=== PATIENT | female | born 1945 | race Caucasian/White ===

== ENCOUNTER → 2019-10-02 13:10 | Outpatient (BNVA) | payer SELFPAY | PROVIDERS: Family Provider Family Medicine; PCP Family Medicine; Visit Provider Nurse Practitioner Family | DX: R50.9 Fever, unspecified (principal); J40 Bronchitis, not specified as acute or chronic; I10 Essential (primary) hypertension | CPT/HCPCS: 85025; 87400 ==

== ENCOUNTER → 2020-10-19 12:53 | Outpatient (BNVA) | payer MEDICARE, SELFPAY | PROVIDERS: Family Provider Family Medicine; PCP Family Medicine; Visit Provider Family Medicine | DX: I10 Essential (primary) hypertension (principal); L85.3 Xerosis cutis; F32.9 Major depressive disorder, single episode, unspecified | CPT/HCPCS: 80053; 84443; 85025 ==

== ENCOUNTER 2022-12-21 10:05 | Outpatient (CLI) | payer MEDICARE, MEDICAID, SELFPAY ==
--- NOTE | 2022-12-21 10:15 | MR_ITS ---
WS: [id number] MRI RIGHT SHOULDER HISTORY: M25.511 - Pain in right shoulder COMPARISON: None available. TECHNIQUE: Multiplanar sequences of the shoulder joint are submitted. Significant motion artifact on all sequences. Study is nearly nondiagnostic. Significant artifact through the humeral head from prior shoulder repair. [place] placement are likely . No corresponding radiographs for comparison. Moderate AC joint arthritis. Distal clavicular osteophyte encroaching upon the supraspinatus tendon a t the level of the glenoid. Subacromial impingement. High riding humeral head. No os acromion. Biceps tendon is not identified in the bicipital groove. Moderate atrophy involving the rotator cuff muscles. Most significant atrophy with fatty replacement involving the supraspinatus and the infraspinatus muscles. The motion artifact causing significant li mitation of the rotator cuff tendons. There must be a complete tear of the supraspinatus tendon with retraction to the glenoid level. The humeral head is high riding. Additional full-thickness tear of t he infraspinatus is likely. There is fluid along the tendon sheath. Subscapularis tendon may be intac t but there is increased signal from tendinopathy. Osteophyte encroachment from the coracoid also not ed upon the subscapularis tendon. Osteophytic ridging around the humeral head. Loss of cartilage invo lving the glenoid and humeral head. No significant joint effusion. MR/MR shoulder RT wo con* [id number] IMPRESSION: 1. Quality of this examination is compromised by motion. 2. High riding humeral head. Humeral head abuts the undersurface of the acromi on. 3. Complete tears with retraction of the infraspinatus and supraspinatus tendo ns with muscle atrophy. 4. Subscapularis tendon limited evaluation secondary to motion. There is at le ast tendinopathy but no full-thickness tear is identified. 5. Moderate AC joint arthritis. 6. Biceps tendon not identified in the bicipital groove. Torn or subluxed/disl ocated. 7. Moderate degenerative changes at the glenohumeral joint. 8. Prior evidence for rotator cuff repair.
== END 2022-12-21 10:06 | disposition home or self-care (01) ==
PROVIDERS: PCP Family Medicine; Visit Provider Nurse Practitioner Family
DX: M19.011 Primary osteoarthritis, right shoulder (principal); M25.711 Osteophyte, right shoulder; M25.811 Other specified joint disorders, right shoulder; M62.511 Muscle wasting and atrophy, not elsewhere classified, right shoulder
CPT/HCPCS: 73221

== ENCOUNTER → 2023-01-02 11:21 | Outpatient (BNVA) | payer MEDICARE, MEDICAID, SELFPAY | PROVIDERS: PCP Nurse Practitioner Family; Referring Provider Nurse Practitioner Family; Visit Provider Student in an Organized Health Care Education/Training Program | DX: M25.511 Pain in right shoulder (principal) | CPT/HCPCS: 20610; 73030; 99204 ==

== ENCOUNTER 2023-01-11 06:00 | Outpatient (RCR) | payer MEDICARE, MEDICAID, SELFPAY | END 2023-01-13 23:59 | disposition home or self-care (01) | LOC: TPT 06:00 | PROVIDERS: Visit Provider Student in an Organized Health Care Education/Training Program | DX: S46.011D Strain of muscle(s) and tendon(s) of the rotator cuff of right shoulder, subsequent encounter (principal); X58.XXXD Exposure to other specified factors, subsequent encounter | CPT/HCPCS: 97163 ==

== ENCOUNTER 2023-01-14 06:00 | Outpatient (RCR) | payer MEDICARE, MEDICAID, SELFPAY | END 2023-02-13 23:59 | disposition home or self-care (01) | LOC: TPT 06:00 | PROVIDERS: Visit Provider Student in an Organized Health Care Education/Training Program | DX: S46.011D Strain of muscle(s) and tendon(s) of the rotator cuff of right shoulder, subsequent encounter (principal); X58.XXXD Exposure to other specified factors, subsequent encounter | CPT/HCPCS: 97110 ==

== ENCOUNTER → 2023-10-20 08:55 | Outpatient (BNVA) | payer MEDICARE, MEDICAID, SELFPAY | PROVIDERS: PCP Nurse Practitioner Family; Visit Provider Podiatrist Foot & Ankle Surgery | DX: B35.1 Tinea unguium (principal); Q82.8 Other specified congenital malformations of skin | CPT/HCPCS: 17110; 99203 ==

== ENCOUNTER → 2024-04-30 13:25 | Outpatient (BNVA) | payer MEDICARE, MEDICAID, SELFPAY | PROVIDERS: PCP Nurse Practitioner Family; Visit Provider Podiatrist Foot & Ankle Surgery | DX: B35.1 Tinea unguium (principal); Q82.8 Other specified congenital malformations of skin; B07.0 Plantar wart | CPT/HCPCS: 17110 ==

== ENCOUNTER 2024-07-31 12:52 | Inpatient (IN) | payer OTHER, MEDICAID, SELFPAY ==
[2024-07-31] VITALS (20 sets, daily range): BP systolic 134–201; BP diastolic 72–141; PULSE 59–96; RESP 16–29; TEMP 36.9; O2SAT 80–96; BMI 34.0; BMI 33.6
--- NOTE | 2024-07-31 13:12 | XR_ITS ---
WS: [id number] XR chest 1V portable [id number] REASON FOR EXAM: chest pain, panic FINDINGS: Moderate tortuosity of the thoracic aorta. Mild cardiac enlargement. There is central pulmonary venous congestion. There is peribronchial cuffing with reticular interstitial opacities in the lower lung nick. There is blunting of the costophrenic angles indicative of pleural effusion. Mild dextroscoliosis and degenerative spondylosis of the thoracic spine. XR/XR chest 1V portable [id number] IMPRESSION: Findings most compatible with congestive heart failure.
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
[2024-07-31 13:25] LABS: ABG PCO2 43.8 mmHg (35-45); ABG PH Result 7.37 (7.35-7.45); Arterial Blood Gas Hematocrit 39.3 % (37-47); Blood Gas Allen Test Pos; Blood Gas Operator Identificat WALCI; Blood Gas Sample Site Radial, left; Blood Gas Sample Type Arterial; HCO3 ABG 25.5 mmol/L (22-26); HGB O2 Sat 85.3 % (95-100); Ionized Calcium Level - ABG 1.4 mmol/L (1.1-1.4); Methemoglobin 1.1 % (0.4-1.5); Oxygen Device NC; Oxygen Saturation ABG 88.9; PO2 ABG 59.5 mmHg (80.0-100.0); Potassium Level - ABG 3.8 mmol/L (3.5-5.0); Total Hemoglobin 12.8 g/dL (12-16)
[2024-07-31] MEDS: LORazepam 1 mg Tablet PO ×2 (13:31→15:35)
[2024-07-31 13:33] LABS: Basophils % 0.2 %; Hematocrit 42.5 % (36-47); Lymphocytes # 1.1 10^3/uL (0.8-4.8); Mean Corpuscular HGB Conc 31.3 g/dL (30-55); Mean Corpuscular Hemoglobin 28.1 pg (27-33); Mean Corpuscular Volume 89.9 fl (85-98); Mean Platelet Volume 9.8 fL (7.4-10.4); Monocytes # 0.3 10^3/uL (0.2-0.9); Monocytes % 2.7 %; Neutrophils # 7.96 10^3/uL (1.8-7.7); Neutrophils % 84.9 %; Nucleated Red Blood Cells % 0 %; Platelet Count 442 10^3/cmm (157-399); Red Blood Count 4.73 10^6/uL (3.85-5.65); Red Cell Distribution Width 14.2 % (12.1-15.1); White Blood Count 9.38 10^3/uL (3.29-11.43)
[2024-07-31 13:46] LABS: D Dimer 0.92 ug/mLFEU (0-0.59)
[2024-07-31 13:50] LABS: Troponin(5th) Baseline 15 ng/L (0-10)
--- NOTE | 2024-07-31 13:50 | CTR_ITS ---
PROCEDURE INFORMATION: Exam: CTA Chest With Contrast Exam date and time: 07/31/2024 4:13 PM Age: 79 years old Clinical indication: Shortness of breath; Additional info: Elevated d dimer, SOB, hypoxic, panic TECHNIQUE: Imaging protocol: Computed tomographic angiography of the chest with contrast. Exam focused on the arteries. 3D rendering (Not supervised by radiologist): MIP and/or 3D reconstructed images were created by the technologist. Radiation optimization: All CT scans at this facility use at least one of these dose optimization techniques: automated exposure control; mA and/or kV adjustment per patient size (includes targeted exams where dose is matched to clinical indication); or iterative reconstruction. Contrast material: OMNI 350; Contrast volume: 100 ml; Contrast route: INTRAVENOUS (IV); COMPARISON: CR XR chest 1V portable [id number] 07/31/2024 1:26 PM RADIATION DOSE METRICS: Total DLP (mGy-cm): 403.1 FINDINGS: Pulmonary arteries: The main pulmonary artery is dilated, measuring 3.9 cm caliber. No filling defect of the level of the proximal subsegmental pulmonary arteries. Aorta: Mild atherosclerotic aortic calcifications. No aortic aneurysm. Tortuous thoracic aorta. Veins: Reflux of contrast into the IVC and hepatic veins. Lungs: Expiratory phase imaging somewhat limits assessment. Diffuse ill-defined ground-glass opacities with areas of mosaic attenuation. Patchy consolidative opacities in the lung bases bilaterally. Benign calcified granulomas in the left upper lobe. Pleural spaces: Moderate bilateral pleural effusions. Heart: Moderate cardiomegaly. No pericardial effusion. Mitral annular calcifications. Coronary arteries: Scattered coronary artery calcifications. Lymph nodes: Multiple enlarged mediastinal lymph nodes. For example, there is a 1.5 cm right lower paratracheal node and a 1.4 cm right upper paratracheal node. Calcified lymph nodes from prior granulomatous disease. Diaphragm: Small hiatal hernia. Spleen: Calcified splenic granulomas. Kidneys: There appears to be excreted contrast in the renal collecting systems, possibly from recently administered IV contrast. Correlate with clinical findings. Bones/joints: Mildly exaggerated thoracic kyphosis multilevel degenerative changes. Diffuse osseous demineralization. No acute or aggressive osseous lesion. Soft tissues: Unremarkable. CT/CT angio chest PE protcl [id number] IMPRESSION: 1. No evidence of pulmonary embolism. 2. Moderate cardiomegaly. 3. Diffuse ill-defined ground-glass opacities likely represent moderate pulmonary edema. Areas of mosaic attenuation could also represent air trapping from chronic small airways disease. 4. Moderate bilateral pleural effusions with adjacent relaxation atelectasis. Superimposed infection not entirely excluded. 5. Dilated main pulmonary artery can be seen with pulmonary hypertension. 6. Reflux of contrast into the IVC and hepatic veins is compatible with tricuspid regurgitation and/or right heart failure.
[2024-07-31 13:53] LABS: Alanine Aminotransferase 33 U/L (0-33); Albumin Level 4.2 g/dL (3.5-5.2); Chloride 101 mmol/L (98-107); Potassium 4.5 mmol/L (3.5-5.1); Sodium 139 mmol/L (136-145)
[2024-07-31 14:00] LABS: Alkaline Phosphatase 126 U/L (35-105); Anion Gap 17.2 (5-19); Aspartate Amino Transferase 23 U/L (0-32); Blood Urea Nitrogen 17 mg/dL (8-23); Calcium 10.7 mg/dL (8.5-10.5); Carbon Dioxide 24 mmol/L (22-29); Globulin 3.2 g/dL (1.3-4.6); Glucose 147 mg/dL (65-115); Osmolality Calculated 290 mOsm/kg (285-295); Total Bilirubin 0.4 mg/dL (0.15-1.2); Total Protein 7.3 g/dL (6.6-8.7)
[2024-07-31 14:19] LABS: Covid PCR NEGATIVE (Negative); Influenza A NEGATIVE (Negative); Influenza B NEGATIVE (Negative); Respiratory Syncytial Virus Ce NEGATIVE (Negative)
[2024-07-31 14:28] LABS: NT Pro B Type Natriuretic Pept 5697 pg/mL (0-450)
[2024-07-31] MEDS: iohexol 350 mg/mL 500 mL Btl (per mL) IV (14:30)
--- NOTE | 2024-07-31 15:19 | ECG_ITS ---
[facility] Test Date: 2024-07-31 Pat Name: Concepcion Esquivel Department: Room: Gender: Female Exhibition Carver: : 1945 Requested By: Jasmeet Bueno Order Number: [id number] Durga MD: SHIRA KATHLEEN Measurements Intervals [place] Rate: 70 P: 34 WI: 172 QRS: 17 QRSD: 142 T: 67 QT: 440 QTc: 475 Interpretive Statements SINUS RHYTHM WITH MARKED SINUS ARRHYTHMIA LEFT BUNDLE BRANCH BLOCK [120+ ms QRS DURATION, 80+ ms Q/S IN V1/V2, 85+ ms R IN I/aVL/V5/V6] No previous ECG available for comparison Electronically Signed On 08-05-2024 23:22:41 DIRECTOR REHABILITATION PROGRAM by SHIRA KATHLEEN [email or web address]
[2024-07-31 15:24] LABS: Troponin 5 2HR 17.22 ng/L (0-10); Troponin 5 2HR Delta 2.22 ABS# (0-10)
[2024-07-31 15:39] LABS: Bilirubin Urine Negative (Negative); Blood Urine Negative (Negative); Glucose Urine UA Negative (Normal); Ketones Urine Negative (Negative); Leukocyte Esterase Urine Negative (Negative); Nitrate Urine Negative (Negative); Protein Urine 2+ (Negative); Specific Gravity, Urine 1.029 (1.005-1.030); Urine Appearance Clear (CLEAR); Urine Color Yellow (Yellow); pH Urine 5.5 (5-7)
[2024-07-31 15:43] LABS: Add Urine Microscopic? YES; Bacteria Urine None Seen /hpf; Hyaline Casts Urine 2.05 /lpf; RBC Urine 0-2 /hpf (0-2); WBC Urine 0-5 /hpf (0-5)
[2024-07-31] MEDS: FUROsemide 10 mg/mL SDV 10mL 60 MG IVP (17:12)
--- NOTE | 2024-07-31 17:53 | P.HP_ITS ---
Providers/Chief Complaint 2 Primary Care Provider: KATEY Bravo Chief Complaint: Panic Attack History of Present Illness Concepcion Esquivel is a 79 year old female with past medical history of hypertension, anxiety noncompliance to medical care or medications presented to the hospital for complaint of being sick for about a week. She states for about a week since Monday she has been very sick and feeling very cold. She has been having on and off chest pressure in the middle of her chest associated with shortness of breath nausea loss of appetite and diaphoresis. She says it is difficult to sleep and she has to prop up to breathe easier. Endorses orthopnea dyspnea on exertion. Denies having an UT in the past. She says she would like to be compliant to her blood pressure medications but just does not take them because she forgets. She says her shoes have been feeling tighter and has had lower extremity edema lately. She does not follow with a doctor however went to see her primary yesterday upon insistence of her children. She was offered an echocardiogram as she was thought to be in heart failure however patient declined at this time. Today her kids insisted she go back to the hospital for evaluation. At the time of my evaluation patient denies chest pressure however states it was there a little while ago as it comes and goes. Sister is at bedside. She is on 5 L nasal cannula saturating 93%. Also hypertensive with blood pressure 180/100 range. She does not appear to be anxious at this time. Says she has loss of appetite. Also endorses shortness of breath at this time. Denies constipation diarrhea abdominal pain. EKG did show left bundle branch block, first troponin 15, second troponin pending at this time. Medications/Allergies Home Medications Medication Instructions Recorded Confirmed Last Taken Type paroxetine HCl 10 mg tablet (Paxil) 10 mg PO DAILY #90 tabs 07/30/24 07/31/24 Unknown Rx amitriptyline 10 mg tablet 10 mg PO .qhs #30 tabs 07/31/24 07/31/24 Unknown Rx aspirin 325 mg tablet (Bryn 650 mg PO BID PRN Heart HEALTH 07/31/24 07/31/24 07/31/24 History Aspirin) hydroxyzine HCl 50 mg tablet 50 mg PO BID PRN anxiety #20 tabs 07/31/24 07/31/24 Unknown Rx ibuprofen 200 mg tablet (Advil) 600 mg PO Q6H PRN Pain 07/31/24 07/31/24 Unknown History mecobalamin (vitamin B12) 1,000 1,000 mcg PO DAILY 07/31/24 07/31/24 07/29/24 History mcg chewable tablet (B12 Active) multivitamin with [id number] 1 tab PO DAILY 07/31/24 07/31/24 07/29/24 History 400 mcg-120 mg tablet (One Daily Women 50 Plus) trazodone 50 mg tablet 50 mg PO BEDTIME PRN Sleep 07/31/24 07/31/24 07/30/24 History Allergies Allergy/AdvReac Type Severity Reaction Status Date / Time No Known Allergies Allergy Verified 04/30/24 14:16 PFSH Acute 2 PFSH: Medical History Glaucoma of both eyes Hypertension Surgical History Hx of carpal tunnel repair Hx of rotator cuff surgery Social History Smoking and tobacco/nicotine status: current every day tobacco/nicotine user cigarettes Packs smoked per day: 1 Years cigarettes smoked: 6 Second hand smoke exposure: No Alcohol intake: current Alcohol intake frequency: few times a week Alcohol type: wine Lives independently: Yes Household members: none Marital status: / Current occupational status: employed Current occupation: [employer] Current gender identity: Female Special karena needs: No Agree to transfusion: Yes Vitals/I&O/Wt Last Vital Signs Temp 98.5 F 07/31/24 12:54 Pulse 70 07/31/24 17:10 Resp 24 H 07/31/24 17:10 BP 181/100 07/31/24 17:10 Pulse Ox 94 07/31/24 17:10 O2 Del Method Nasal Cannula 07/31/24 17:10 O2 Flow Rate 5 07/31/24 17:10 Weight last 48 hrs Weight 84.368 kg Physical Exam 2 Narrative: General: Alert oriented x3, patient seen sitting up in bed on 5 L nasal cannula saturating 93%, sister at bedside. No acute respiratory distress however mild conversational dyspnea present at times. HEENT: Normocephalic, atraumatic, EOMI, Cardio: Regular rate rhythm, normal S1-S2, systolic murmur present Respiratory: Crackles bilaterally at bases GI: Abdomen soft, nontender, nondistended, bowel sounds + Behavior: Appropriate and cooperative Extremities: 1+ pitting edema bilaterally lower extremity up to the knees. Data 07/31/24 13:25 07/31/24 13:25 A&P Assessment and plan (1) Hypertension: Qualifiers: Hypertension type: essential hypertension Qualified Code(s): I10 - Essential (primary) hypertension (2) CHF (congestive heart failure): Qualifiers: Heart failure chronicity: acute Heart failure type: unspecified Qualified Code(s): I50.9 - Heart failure, unspecified (3) Supplemental oxygen dependent: (4) New onset of congestive heart failure: (5) Pulmonary edema: (6) Smoker: (7) Left bundle branch block: (8) Goals of care, counseling/discussion: (9) Noncompliance: (10) Chest pressure: (11) Systolic murmur: Plan #New onset congestive heart failure most likely systolic #Pulmonary edema, new onset #New left bundle branch block or old, do not have an old EKG to compare to #Hypertensive urgency #Anxiety #Noncompliance to medical treatment and medications #Smoker ? Will provide 7 g nicotine patches per patient's request at this time ? Lasix 60 IV given in ER. Will place on Lasix 40 IV twice daily ? First troponin 15, second and subsequent 6-hour troponin pending at this time ? EKG showed left bundle branch block ? Echo ordered ? Patient having chest pressure. Will place on nitro drip. ? Discussed with metal pickling equipment operator over the phone. Consult Dr. Reddy ? N.p.o. at midnight in case of angiogram being planned for the morning ? Patient will need diuresis and further workup for new onset congestive heart failure ? Will order Xanax 0.25 twice daily as needed for anxiety ? Check hemoglobin A1c, lipid profile, TSH ? Wean off oxygen as able ? Place Kong catheter for accurate output ? Due to active heart failure I will hold off on adding a beta-davion at this time. ? Placed on aspirin and Plavix ? In case delta troponin is positive at 6 hours patient will need to be anticoagulated at that time. Full code DVT prophylaxis: Heparin SQ twice daily Patient would like to appoint her sister and 2 children to be DPOA. tip out worker to see her in AM. Her has . Attestations 2 Medical Necessity Statement*: Greater than 2 midnight stay for management of new onset congestive heart failure new onset pulmonary edema left bundle branch block Diagnoses Essential hypertension I10 Hypertension type: essential hypertension CHF (congestive heart failure) I50.9 Heart failure chronicity: acute Heart failure type: unspecified Supplemental oxygen dependent Z99.81 New onset of congestive heart failure I50.9 Pulmonary edema J81.1 Smoker F17.200 Left bundle branch block I44.7 Goals of care, counseling/discussion Z71.89 Noncompliance Z91.199 Chest pressure R07.89 Systolic murmur R01.1
--- NOTE | 2024-07-31 18:00 | USCV_ITS ---
Concepcion Esquivel Age: 79 Gender: F : 1945 Exam Date: 07/31/2024 19:31 Ordering Phys: Payal Smith MD Technologist: PARAM Exam Location: [facility] [place] Indication: new onset heart failure BP: 181 / 100 HR: 77 Rhythm: mostly sinus rhythm with strings of atrial fibrillation Technical Quality: Adequate MEASUREMENTS (Male / Female) Normal Values 2D ECHO LV Diastolic Diameter PLAX 4.4 cm 4.2 - 5.9 / 3.9 - 5.3 cm IVS Diastolic Thickness 1.9 cm 0.6 - 1.0 / 0.6 - 0.9 cm IVS Systolic Thickness 2.3 cm LVPW Diastolic Thickness 1.7 cm 0.6 - 1.0 / 0.6 - 0.9 cm LVPW Systolic Thickness 2.1 cm LVOT Diameter 2.0 cm LV Ejection Fraction 2D Teich 44.4 % LV Ejection Fraction MOD 4C 60.4 % LV Ejection Fraction MOD 2C 37.0 % LV Ejection Fraction 2C AL 42.2 % LA Diameter 3.2 cm LA Sys Volume AL 142.9 cm cubed LA Sys Volume Index AL 72.9 cm cubed/m squared Aorta at Sinotubular Diameter 2.4 cm IVC Diameter 0.9 cm M-MODE LA Ao Ratio MM 1.6 AV Cusp Separation MM 1.4 cm DOPPLER AV Peak Velocity 209.0 cm/s LVOT Peak Velocity 74.0 cm/s AV Area Cont Eq vti 1.5 cm squared AV Area Cont Eq pk 1.1 cm squared MV Peak Velocity 148.0 cm/s MV Area PHT 4.3 cm squared Mitral E to A Ratio 0.9 TV Peak E Velocity 52.0 cm/s PV Peak Velocity 167.0 cm/s FINDINGS Left Ventricle Moderately increased left ventricular cavity size. Moderately decreased left ventricular systolic function. Left ventricular ejection fraction is estimated at 44 %. Global left ventricular hypokinesis. Grade I/IV diastolic dysfunction (abnormal relaxation filling pattern), normal to mildly elevated filling pressures. Right Ventricle The right ventricle is normal in size and function. Right Atrium The right atrium is normal in size. Left Atrium Severely increased left atrial size. Mitral Valve Moderately thickened mitral valve. No mitral valve stenosis. Moderate mitral valve regurgitation. Aortic Valve Severe aortic valve calcification. Moderate aortic valve stenosis, mean gradient 8.3 mmHg, SAMI 1.5 cm squared. Mild aortic valve regurgitation. Tricuspid Valve Structurally normal tricuspid valve without significant stenosis or regurgitation. Pulmonary artery systolic pressure is normal. Pulmonic Valve Structurally normal pulmonic valve without significant stenosis. There is no pulmonic regurgitation. Pericardium Normal pericardium without effusion. Aorta Normal ascending aorta dimension. IVC The inferior vena cava appears normal. CONCLUSIONS Moderately increased left ventricular cavity size. Moderately decreased left ventricular systolic function. Left ventricular ejection fraction is estimated at 44 %. Global left ventricular hypokinesis. Grade I/IV diastolic dysfunction (abnormal relaxation filling pattern), normal to mildly elevated filling pressures. Severely increased left atrial size. Severe aortic valve calcification. Moderate aortic valve stenosis, mean gradient 8.3 mmHg, SAMI 1.5 cm squared. Mild aortic valve regurgitation. Moderately thickened mitral valve. No mitral valve stenosis. Moderate mitral valve regurgitation. There is no pericardial effusion. Right atrial pressure is around 5 mm of mercury. Jelani Reddy MD (Electronically Signed) Final Date: 01 August 2024 21:47 S
[2024-07-31 18:47] LABS: Procalcitonin 0.04 ng/mL (0-0.5); Thyroid Stimulating Hormone 1.13 uIU/mL (0.27-4.20)
[2024-07-31 18:57] LABS: Chol HDL Ratio 3.73 mg/dL (0.0-4.40); Cholesterol 205 mg/dL (0-200); HDL Cholesterol 55 mg/dL (60-100); LDL Cholesterol Calculated 133 mg/dL (50-129); LDL HDL Ratio 2.42 RATIO (0.00-3.22); Triglycerides 86 mg/dL (0-150)
--- NOTE | 2024-07-31 19:31 | PC.NURSE ---
ATTEMPTED TO CALL REPORT AT 1932, NURSE UNAVAILABLE.
[2024-07-31] MEDS: pantoprazole DR 40 mg Tablet PO (19:58)
[2024-07-31] MEDS: cefTRIAXone 1,000 mg SDV 1000 MG IVP (19:58)
[2024-07-31] MEDS: atorvastatin 40 mg Tablet 80 MG PO (20:14)
[2024-07-31] MEDS: heparin 5,000 unit/mL INJ 1 mL 5000 UNIT SUBCUT (20:14)
[2024-07-31 20:43] LABS: Estmated Average Glucose 111; Hemoglobin A1C 5.5 % (4.0-6.0)
--- NOTE | 2024-07-31 20:43 | PC.NURSE ---
pt was given abx before cultures were drawn d/t lab stating they had drawn cultures when nurse was in the room.
--- NOTE | 2024-07-31 21:41 | PM.CONSULT ---
Providers/Reason For Consult Consulting Physician/Specialty*: Jelani Reddy MD Reason for Consult*: New onset of heart failure Left bundle branch block questionable status since we do not have any prior EKG to compare Hypoxia Requesting Physician: Dr. Smith Attending Physician: Payal Smith MD Primary Care Provider: KATEY Bravo History of Present Illness History of Present Illness Concepcion Esquivel is a 79 year old female past medical history significant for [id number] of tobacco abuse, hypertension who denies any prior history of heart problem presented with worsening of shortness of breath PND orthopnea. According to the patient it is going on for the last few days she also reports chest pressure and occasional chest pain. Currently she is chest pain-free and feeling better after IV Lasix. According to the patient today he felt like suffocated and were not able to breathe therefore decided to come to the ER. Twelve-lead EKG was suggestive of sinus rhythm with left bundle branch block no prior EKG to compare initial cardiac markers were within normal limit we have been asked to assist in her care. Patient was on 5 L of oxygen. Review of Systems General: Reports: 10 or more systems reviewed and unremarkable except in HPI and below Const: Denies: fever(s), chills or fatigue Eyes: Denies: change in vision ENMT: Denies: throat pain, ear or mastoid pain or nasal discharge Card: Reports: chest pain; Denies: palpitations, swelling of feet/ankles or lightheadedness Resp: Reports: dyspnea; Denies: productive cough or wheezing GI: Denies: abdominal pain, nausea, vomiting, diarrhea or constipation : Denies: flank pain, difficulty voiding, dysuria or urinary frequency Musc: Denies: neck pain, back pain, joint pain or joint warmth Skin/Breast: Denies: rash Neuro: Denies: headache(s), numbness in extremities or weakness in extremities Psych: Reports: anxiety; Denies: depression, visual hallucinations, auditory hallucinations, tactile hallucinations, suicidal ideation or homicidal ideation Medications/Allergies Home Medications Medication Instructions Recorded Confirmed Last Taken Type paroxetine HCl 10 mg tablet (Paxil) 10 mg PO DAILY #90 tabs 07/30/24 07/31/24 Unknown Rx amitriptyline 10 mg tablet 10 mg PO .qhs #30 tabs 07/31/24 07/31/24 Unknown Rx aspirin 325 mg tablet (Bryn 650 mg PO BID PRN Heart HEALTH 07/31/24 07/31/24 07/31/24 History Aspirin) hydroxyzine HCl 50 mg tablet 50 mg PO BID PRN anxiety #20 tabs 07/31/24 07/31/24 Unknown Rx ibuprofen 200 mg tablet (Advil) 600 mg PO Q6H PRN Pain 07/31/24 07/31/24 Unknown History mecobalamin (vitamin B12) 1,000 1,000 mcg PO DAILY 07/31/24 07/31/24 07/29/24 History mcg chewable tablet (B12 Active) multivitamin with [id number] 1 tab PO DAILY 07/31/24 07/31/24 07/29/24 History 400 mcg-120 mg tablet (One Daily Women 50 Plus) trazodone 50 mg tablet 50 mg PO BEDTIME PRN Sleep 07/31/24 07/31/24 07/30/24 History Allergies Allergy/AdvReac Type Severity Reaction Status Date / Time No Known Allergies Allergy Verified 04/30/24 14:16 Current Medications Generic Name Dose Route Start Last Admin Trade Name Freq PRN Reason Stop Dose Admin Atorvastatin Calcium 80 mg 07/31/24 21:00 07/31/24 20:14 Atorvastatin 40 Mg Tablet PO 80 mg BEDTIME DENISE Administration Ceftriaxone Sodium 1,000 mg 07/31/24 19:00 07/31/24 19:58 Ceftriaxone 1,000 Mg Sdv IVP 1,000 mg Q24H DENISE Administration Protocol Heparin Sodium (Porcine) 5,000 unit 07/31/24 18:00 07/31/24 20:14 Heparin 5,000 Unit/Ml Inj 1 Ml SUBCUT 5,000 unit Q12H DENISE Administration Pantoprazole Sodium 40 mg 07/31/24 18:00 07/31/24 19:[address] 40 Mg Tablet PO 40 mg DAILY DENISE Administration PFSH Acute PFSH: Medical History Glaucoma of both eyes Hypertension Surgical History Hx of carpal tunnel repair Hx of rotator cuff surgery Social History Smoking and tobacco/nicotine status: current every day tobacco/nicotine user cigarettes Packs smoked per day: 1 Years cigarettes smoked: 6 Second hand smoke exposure: No Alcohol intake: current Alcohol intake frequency: few times a week Alcohol type: wine Lives independently: Yes Household members: none Marital status: / Current occupational status: employed Current occupation: [employer] Current gender identity: Female Special karena needs: No Agree to transfusion: Yes Vitals/I&O/Wt Last Vital Signs Temp 98.5 F 07/31/24 12:54 Pulse 96 07/31/24 21:05 Resp 26 H 07/31/24 19:30 BP 178/107 07/31/24 21:05 Pulse Ox 93 07/31/24 21:05 O2 Del Method Nasal Cannula 07/31/24 19:30 O2 Flow Rate 5 07/31/24 19:30 Weight last 48 hrs Weight 186 lb Physical Exam Const: OTHER: GENERAL: Patient is alert, awake and oriented x3. HEART: Regular S1 and S2. No gallop LUNGS: Inspiratory crackles bilaterally. Abdomen: Soft nontender mildly distended CENTRAL NERVOUS SYSTEM: Grossly nonfocal. EXTREMITIES: Lower extremities with out edema bilaterally. Urinary Catheter Management: Kong: Cath Placed During This Visit: yes Urinary Catheter Date of Insertion: 07/31/24 Data 07/31/24 13:25 07/31/24 13:25 A&P Assessment and plan (1) New onset of congestive heart failure: (2) Chest pressure: (3) Left bundle branch block: (4) Smoker: (5) Hypertension: Qualifiers: Hypertension type: essential hypertension Qualified Code(s): I10 - Essential (primary) hypertension Plan Discussed with our hospitalist colleague detail management. We agree with IV diuresis goal is 1-1.5 negative per day with electrolyte balance. IV nitroglycerin for uncontrolled hypertension will also reduce preload and improve congestion of lungs secondary to CHF Will obtain echocardiogram to assess LV function and any valvulopathy Left bundle branch block currently is off unknown significance until there is no other EKG for comparison since patient is chest pain-free and first troponin was within normal range Once euvolemic patient need ischemic workup depending upon echocardiogram result trending troponin left heart cath versus stress test will be planned. Consult Attestations Medical Necessity Statement: I am expecting her stay to cross more than 2 midnights Coding Level of Care Code Acute Code for Chg Fwd Diagnoses New onset of congestive heart failure I50.9 Chest pressure R07.89 Left bundle branch block I44.7 Smoker F17.200 Essential hypertension I10 Hypertension type: essential hypertension
[2024-07-31 21:47] LABS: Troponin 5 6HR 19.01 ng/L (0-10); Troponin 5 6HR Delta 4.01 ng/L (0-12)
[2024-07-31] MEDS: FUROsemide 10 mg/mL SDV 4mL 40 MG IVP (22:00)
[2024-07-31] MEDS: nitroglycerin drip 50 MG/250 ML PREMIX IV (22:40)
[2024-08-01] VITALS (38 sets, daily range): BP systolic 90–158; BP diastolic 53–92; PULSE 57–111; RESP 15–27; TEMP 36.2–37.7; O2SAT 87–100
[2024-08-01 03:35] LABS: Basophils % 0.3 %; Eosinophils # 0.1 10^3/uL (0.0-0.8); Hematocrit 41.4 % (36-47); Lymphocytes # 1.6 10^3/uL (0.8-4.8); Lymphocytes % 17.5 %; Mean Corpuscular HGB Conc 31.4 g/dL (30-55); Mean Corpuscular Hemoglobin 27.8 pg (27-33); Mean Corpuscular Volume 88.7 fl (85-98); Mean Platelet Volume 9.7 fL (7.4-10.4); Monocytes # 0.6 10^3/uL (0.2-0.9); Monocytes % 6.6 %; Neutrophils # 6.84 10^3/uL (1.8-7.7); Neutrophils % 74.3 %; Nucleated Red Blood Cells % 0 %; Platelet Count 428 10^3/cmm (157-399); Red Blood Count 4.67 10^6/uL (3.85-5.65); Red Cell Distribution Width 14.1 % (12.1-15.1); White Blood Count 9.21 10^3/uL (3.29-11.43)
[2024-08-01 04:01] LABS: Alanine Aminotransferase 30 U/L (0-33); Albumin Level 3.8 g/dL (3.5-5.2); Alkaline Phosphatase 114 U/L (35-105); Anion Gap 17.2 (5-19); Aspartate Amino Transferase 20 U/L (0-32); Blood Urea Nitrogen 16 mg/dL (8-23); Calcium 10.5 mg/dL (8.5-10.5); Carbon Dioxide 28 mmol/L (22-29); Chloride 98 mmol/L (98-107); Creatinine Clr Calc Pharmacy 56.1885; Glucose 90 mg/dL (65-115); Magnesium 2.2 mg/dL (1.7-2.3); Osmolality Calculated 291 mOsm/kg (285-295); Potassium 3.2 mmol/L (3.5-5.1); Sodium 140 mmol/L (136-145); Total Bilirubin 0.4 mg/dL (0.15-1.2); Total Protein 6.8 g/dL (6.6-8.7)
[2024-08-01] MEDS: heparin 5,000 unit/mL INJ 1 mL 5000 UNIT SUBCUT ×2 (06:21→17:35)
[2024-08-01] MEDS: potassium chloride ER 20 mEq Tablet 40 MEQ PO ×2 (08:57→13:17)
[2024-08-01] MEDS: PARoxetine 20 mg Tablet 10 MG PO (08:58)
[2024-08-01] MEDS: aspirin 81 mg EC Tablet PO (08:59)
[2024-08-01] MEDS: clopidogrel 75 mg Tablet PO (08:59)
[2024-08-01] MEDS: pantoprazole DR 40 mg Tablet PO (08:59)
[2024-08-01] MEDS: FUROsemide 10 mg/mL SDV 4mL 40 MG IVP ×3 (09:00→20:42)
--- NOTE | 2024-08-01 10:23 | PC.NURSE ---
0839 -- Notified Dr Smith of patients K+ level of 3.2, order given for 40meq PO K+ to be given. 914 -- Linda CERTIFIED APPLIANCE SERVICE TECHNICIAN to bedside, patient assessed and updated CERTIFIED APPLIANCE SERVICE TECHNICIAN on urine output and 40meq K given PO 929 -- Dr. Smith to bedside, sisters number given to Dr. Smith so she can call her with an update on a patient.
--- NOTE | 2024-08-01 11:10 | PM.PN ---
Subjective Subjective: seen this am nitro gtt turned off this am feeling better today orthopnea has improved as well now on 3L NC echo pending at this time denies chest pressure this Am Vitals/I&O/Wt Last Vital Signs Temp 99.5 F 08/01/24 08:00 Pulse 71 08/01/24 10:00 Resp 26 H 08/01/24 10:00 BP 149/68 08/01/24 10:00 Pulse Ox 91 08/01/24 10:00 O2 Del Method Nasal Cannula 08/01/24 10:00 O2 Flow Rate 4 08/01/24 10:00 07/31/24 08/01/24 08/01/24 22:59 06:59 14:59 Intake Total 0.25 / 0.25 495.025 / 495.275 Output Total 650 / 650 Balance 0.25 / 0.25 -154.975 / -154.725 Weight last 48 hrs Weight 82 kg Weight 83.5 kg Weight 84.368 kg Physical Exam Narrative: General: Alert oriented x3, patient seen sitting up in bed on 4 L nasal cannula saturating 93%, sister at bedside. HEENT: Normocephalic, atraumatic, EOMI, Cardio: Regular rate rhythm, normal S1-S2, systolic murmur present Respiratory: very mild crackles at bases b/l improved from admission. GI: Abdomen soft, nontender, nondistended, bowel sounds + Behavior: Appropriate and cooperative Extremities: trace edema b/l Urinary Catheter Management: Kong: Cath Placed During This Visit: yes Reason for Continuing Indwelling Catheter: Accurate Measurement of Urinary Output in Critically Ill Patients Urinary Catheter Date of Insertion: 07/31/24 Data 08/01/24 03:19 08/01/24 03:19 Micro: Microbiology 08/01/24 03:15 Blood Culture - Preliminary Blood SPECIMEN COLLECTED 08/01/24 03:19 Blood Culture - Preliminary Blood SPECIMEN COLLECTED A&P Assessment and plan (1) Hypertension: Qualifiers: Hypertension type: essential hypertension Qualified Code(s): I10 - Essential (primary) hypertension (2) CHF (congestive heart failure): Qualifiers: Heart failure chronicity: acute Heart failure type: unspecified Qualified Code(s): I50.9 - Heart failure, unspecified (3) Supplemental oxygen dependent: (4) New onset of congestive heart failure: (5) Pulmonary edema: (6) Smoker: (7) Left bundle branch block: (8) Goals of care, counseling/discussion: (9) Noncompliance: (10) Chest pressure: (11) Systolic murmur: Plan #New onset congestive heart failure most likely systolic #Pulmonary edema, new onset #New left bundle branch block or old, do not have an old EKG to compare to #Hypertensive urgency #Anxiety #Noncompliance to medical treatment and medications #Smoker ? Will provide 7 g nicotine patches per patient's request at this time ? Lasix 60 IV given in ER. Will place on Lasix 40 IV twice daily ? First troponin 15, second and subsequent 6-hour troponin pending at this time ? EKG showed left bundle branch block ? Echo ordered ? Patient having chest pressure. Will place on nitro drip. ? Discussed with partition making machine operator over the phone. Consult Dr. Reddy ? N.p.o. at midnight in case of angiogram being planned for the morning ? Patient will need diuresis and further workup for new onset congestive heart failure ? Will order Xanax 0.25 twice daily as needed for anxiety ? Check hemoglobin A1c, lipid profile, TSH ? Wean off oxygen as able ? Place Kong catheter for accurate output ? Due to active heart failure I will hold off on adding a beta-davion at this time. ? Placed on aspirin and Plavix ? In case delta troponin is positive at 6 hours patient will need to be anticoagulated at that time. Full code DVT prophylaxis: Heparin SQ twice daily Patient would like to appoint her sister and 2 children to be DPOA. clam bed worker to see her in AM. Her has . 08/01/2024 Continue on nicotine patch await echo continue lasix 40 iv BID - continue to supplement potassium - cardiology following a1c 5.1 lipid profile reviewed, pt on atorvastatin 80 tsh pending - wean off o2 as able - continue aspirin plavix continue xanax bid prn may transfer to [facility] Attestations Medical Necessity Statement*: Greater than 2 midnight stay for management of new onset congestive heart failure new onset pulmonary edema left bundle branch block Diagnoses Essential hypertension I10 Hypertension type: essential hypertension CHF (congestive heart failure) I50.9 Heart failure chronicity: acute Heart failure type: unspecified Supplemental oxygen dependent Z99.81 New onset of congestive heart failure I50.9 Pulmonary edema J81.1 Smoker F17.200 Left bundle branch block I44.7 Goals of care, counseling/discussion Z71.89 Noncompliance Z91.199 Chest pressure R07.89 Systolic murmur R01.1
[2024-08-01] MEDS: nicotine 7 mg Patch 1 PATCH TRANSDERMA (11:35)
--- NOTE | 2024-08-01 11:56 | P.PN_ITS ---
<Statement entered by Jelani Reddy MD - 08/01/24 23:08> Patient was evaluated and cared for in conjunction with an advanced practice practitioner. I personally examined the patient and reviewed the chart and all pertinent data including imaging, telemetry, and laboratory results. I discussed the patient in detail with the advanced practice practitioner. Please see their note for complete H&P testing result and agreed upon plan of care for the patient. Patient has diuresed well feeling much better near euvolemic GENERAL: Patient is alert, awake and oriented x3. HEART: Regular S1 and S2. No murmur, rub or gallop. LUNGS: Clear to auscultate bilaterally. CENTRAL NERVOUS SYSTEM: Grossly nonfocal. EXTREMITIES: Lower extremities with out edema bilaterally. New onset of heart failure with moderately depressed left ventricular ejection fraction Acute systolic decompensated heart failure with volume overload status Moderately depressed left ventricular ejection fraction new onset ejection fraction 44% Moderate mitral valve regurgitation COPD Tobacco abuse Continue IV diuresis, n.p.o. after morning breakfast for possible left heart cath tomorrow afternoon to rule out ischemic component Will add beta-davion and guideline therapy for heart failure from tomorrow after reviewing left heart catheter result. Advised quitting smoking. Subjective 2 Subjective: She is feeling much better today after some diuresis-she had 1900 mL out yesterday and 650 so far today her fluid balance is 150 mL negative. She will require more IV diuresis prior to further ischemic workup with either a stress test or a left heart cath. Pedal pulses decreased present by Doppler. Given her risk factors for CAD/PAD she likely has some mild to moderate PAD. She does not have any symptoms of claudication, resting leg pain, sensation or color changes to the feet or toes. Potassium 3.2 this morning, has been replaced. Blood pressure elevated at times overnight, should improve with diuresis. Currently 4 L nasal cannula saturating well. No symptoms of chest pain this morning. Vitals/I&O/Wt Last Vital Signs Temp 99.5 F 08/01/24 08:00 Pulse 71 08/01/24 10:00 Resp 26 H 08/01/24 10:00 BP 149/68 08/01/24 10:00 Pulse Ox 91 08/01/24 10:00 O2 Del Method Nasal Cannula 08/01/24 10:00 O2 Flow Rate 4 08/01/24 10:00 07/31/24 08/01/24 08/01/24 22:59 06:59 14:59 Intake Total 0.25 / 495.275 495.025 / 495.275 Output Total 650 / 650 Balance 0.25 / -154.725 -154.975 / -154.725 Weight last 48 hrs Weight 180 lb 12.465 oz Weight 184 lb 1.376 oz Weight 186 lb Physical Exam 2 Const: COMMON NORMALS: no acute distress and patient oriented x3 GENERAL APPEARANCE: cooperative and comfortable ORIENTATION/CONSCIOUSNESS: Yes awake, Yes oriented to person, Yes oriented to place and Yes oriented to time Chest: COMMONS NORMALS: normal inspection of the chest and normal palpation of entire chest wall CHEST: Yes Symmetrical chest wall rise Resp: COMMON NORMALS: normal respiratory effort, No retractions and No use of accessory muscles EFFORT & INSPECTION: Yes symmetric chest movement A USCULTATION: crackles (Throughout) Laterality: bilateral and posterior Cardio: COMMON NORMALS: regular rate, regular rhythm, S1 normal heart sound present, S2 normal heart sound present, No gallops present (Cardio), No clicks present (Cardio), No murmurs present (Cardio) and No rub (Cardio) RATE: r egular rate RHYTHM: regular rhythm HEART SOUNDS: S1 normal heart sound present and S2 normal heart sound present PERIPHERAL PULSES: radial pulses present, posterior tibial pulses present positive bilateral dopplerable and dorsalis pedis present positive bilateral dopplerable Extremity: COMMON NORMALS: no pedal edema Neuro: COMMON NORMALS: patient oriented x3 and moves all extremities S ENSORIUM/ORIENTATION: Yes oriented to person, Yes oriented to place and Yes oriented to time Urinary Catheter Management: Kong: Cath Placed During This Visit: yes Reason for Continuing Indwelling Catheter: Accurate Measurement of Urinary Output in Critically Ill Patients Urinary Catheter Date of Insertion: 07/31/24 Data 08/01/24 03:19 08/01/24 03:19 Micro: Microbiology 08/01/24 03:15 Blood Culture - Preliminary Blood SPECIMEN COLLECTED 08/01/24 03:19 Blood Culture - Preliminary Blood SPECIMEN COLLECTED A&P Assessment and plan (1) New onset of congestive heart failure: Continue IV diuresis, she still has crackles and appears volume overloaded. (2) Hypertension: Qualifiers: Hypertension type: essential hypertension Qualified Code(s): I10 - Essential (primary) hypertension (3) Left bundle branch block: (4) Smoker: Attestations 2 Medical Necessity Statement*: Requires diuresis for ischemic workup, new onset heart failure Coding Level of Care Code Acute Code for Chg Fwd Diagnoses New onset of congestive heart failure I50.9 Essential hypertension I10 Hypertension type: essential hypertension Left bundle branch block I44.7 Smoker F17.200
[2024-08-01 12:53] LABS: Anion Gap 14.2 (5-19); Blood Urea Nitrogen 18 mg/dL (8-23); Calcium 10.4 mg/dL (8.5-10.5); Carbon Dioxide 29 mmol/L (22-29); Chloride 100 mmol/L (98-107); Creatinine Clr Calc Pharmacy 55.6573; Glucose 152 mg/dL (65-115); Osmolality Calculated 295 mOsm/kg (285-295); Potassium 3.2 mmol/L (3.5-5.1); Sodium 140 mmol/L (136-145)
--- NOTE | 2024-08-01 13:11 | PC.NURSE ---
K+ 3.2, notified Dr. Smith, order given for K+ 40meq PO x 1 dose.
[2024-08-01] MEDS: potassium chloride ER 20 mEq Tablet PO (17:36)
[2024-08-01] MEDS: cefTRIAXone 1,000 mg SDV 1000 MG IVP (19:02)
[2024-08-01] MEDS: atorvastatin 40 mg Tablet 80 MG PO (20:41)
[2024-08-02] VITALS (29 sets, daily range): BP systolic 87–170; BP diastolic 39–102; PULSE 63–87; RESP 16–30; TEMP 36.6–37.1; O2SAT 89–100
[2024-08-02] MEDS: heparin 5,000 unit/mL INJ 1 mL 5000 UNIT SUBCUT ×2 (06:00→21:14)
[2024-08-02 07:04] LABS: Blood Urea Nitrogen 24 mg/dL (8-23); Calcium 10.4 mg/dL (8.5-10.5); Carbon Dioxide 30 mmol/L (22-29); Chloride 101 mmol/L (98-107); Creatinine Clr Calc Pharmacy 54.7719; Glucose 105 mg/dL (65-115); Osmolality Calculated 294 mOsm/kg (285-295); Sodium 140 mmol/L (136-145)
[2024-08-02] MEDS: nicotine 7 mg Patch 1 PATCH TRANSDERMA (08:20)
[2024-08-02] MEDS: clopidogrel 75 mg Tablet PO (08:22)
[2024-08-02] MEDS: aspirin 81 mg EC Tablet PO (08:22)
[2024-08-02] MEDS: FUROsemide 10 mg/mL SDV 4mL 40 MG IVP (08:22)
[2024-08-02] MEDS: pantoprazole DR 40 mg Tablet PO (08:23)
[2024-08-02] MEDS: PARoxetine 20 mg Tablet 10 MG PO (08:23)
[2024-08-02] MEDS: potassium chloride ER 20 mEq Tablet PO (08:23)
--- NOTE | 2024-08-02 09:10 | P.PN_ITS ---
Subjective 2 Subjective: Seen this morning. Plan for coronary angiogram today. Patient states she feels better. Urine output 2500 cc overnight. Vitals/I&O/Wt Last Vital Signs Temp 98.7 F 08/02/24 04:00 Pulse 78 08/02/24 07:39 Resp 16 08/02/24 07:39 BP 119/65 08/02/24 06:00 Pulse Ox 91 08/02/24 07:39 O2 Del Method Room Air 08/02/24 07:39 O2 Flow Rate 2 08/02/24 06:00 08/01/24 08/02/24 08/02/24 22:59 06:59 14:59 Intake Total 680 / 1180 Output Total 1550 / 1550 950 / 2500 Balance -870 / -370 -950 / -1320 Weight last 48 hrs Weight 79.5 kg Weight 82 kg Weight 83.5 kg Weight 84.368 kg Physical Exam 2 Narrative: General: Alert oriented x3, patient seen sitting up in bed on 2 L nasal cannula. HEENT: Normocephalic, atraumatic, EOMI, Cardio: Regular rate rhythm, normal S1-S2, systolic murmur present Respiratory: v clear to auscultation bilaterally, significant improvement from admission. GI: Abdomen soft, nontender, nondistended, bowel sounds + Behavior: Appropriate and cooperative Extremities: trace edema b/l Urinary Catheter Management: Kong: Cath Placed During This Visit: yes Reason for Continuing Indwelling Catheter: Accurate Measurement of Urinary Output in Critically Ill Patients Urinary Catheter Date of Insertion: 07/31/24 Data 08/01/24 03:19 08/02/24 06:09 Micro: Microbiology 08/01/24 03:15 Blood Culture - Preliminary Blood NEGATIVE TO DATE 08/01/24 03:19 Blood Culture - Preliminary Blood NEGATIVE TO DATE A&P Assessment and plan (1) Hypertension: Qualifiers: Hypertension type: essential hypertension Qualified Code(s): I10 - Essential (primary) hypertension (2) CHF (congestive heart failure): Qualifiers: Heart failure chronicity: acute Heart failure type: unspecified Qualified Code(s): I50.9 - Heart failure, unspecified (3) Supplemental oxygen dependent: (4) New onset of congestive heart failure: (5) Pulmonary edema: (6) Smoker: (7) Left bundle branch block: (8) Goals of care, counseling/discussion: (9) Noncompliance: (10) Chest pressure: (11) Systolic murmur: Plan #New onset congestive heart failure most likely systolic #Pulmonary edema, new onset #New left bundle branch block or old, do not have an old EKG to compare to #Hypertensive urgency #Anxiety #Noncompliance to medical treatment and medications #Smoker ? Will provide 7 g nicotine patches per patient's request at this time ? Lasix 60 IV given in ER. Will place on Lasix 40 IV twice daily ? First troponin 15, second and subsequent 6-hour troponin pending at this time ? EKG showed left bundle branch block ? Echo ordered ? Patient having chest pressure. Will place on nitro drip. ? Discussed with fruit grading supervisor over the phone. Consult Dr. Reddy ? N.p.o. at midnight in case of angiogram being planned for the morning ? Patient will need diuresis and further workup for new onset congestive heart failure ? Will order Xanax 0.25 twice daily as needed for anxiety ? Check hemoglobin A1c, lipid profile, TSH ? Wean off oxygen as able ? Place Kong catheter for accurate output ? Due to active heart failure I will hold off on adding a beta-davion at this time. ? Placed on aspirin and Plavix ? In case delta troponin is positive at 6 hours patient will need to be anticoagulated at that time. Full code DVT prophylaxis: Heparin SQ twice daily Patient would like to appoint her sister and 2 children to be DPOA. 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 Her has . 08/01/2024 Continue on nicotine patch await echo continue lasix 40 iv BID - continue to supplement potassium - cardiology following a1c 5.1 lipid profile reviewed, pt on atorvastatin 80 tsh pending - wean off o2 as able - continue aspirin plavix continue xanax bid prn may transfer to [facility] 08/02/2024 -Patient placed on Lasix 40 IV 3 times daily ? A1c 5.1. ? TSH pending ? Continue aspirin Plavix. ? Plan for coronary angiogram today. ? Echo reviewed. EF 44% with global hypokinesia grade 1 diastolic dysfunction. ? Cardiology following, appreciate recommendations. Attestations 2 Medical Necessity Statement*: Greater than 2 midnight stay for management of new onset congestive heart failure new onset pulmonary edema left bundle branch block Diagnoses Essential hypertension I10 Hypertension type: essential hypertension CHF (congestive heart failure) I50.9 Heart failure chronicity: acute Heart failure type: unspecified Supplemental oxygen dependent Z99.81 New onset of congestive heart failure I50.9 Pulmonary edema J81.1 Smoker F17.200 Left bundle branch block I44.7 Goals of care, counseling/discussion Z71.89 Noncompliance Z91.199 Chest pressure R07.89 Systolic murmur R01.1
--- NOTE | 2024-08-02 12:06 | PC.SOCIAL ---
IMM Updated Updated pt on IMM. No questions voiced. Provided pt a copy. Initialed, dated, & timed a copy & placed in chart.
--- NOTE | 2024-08-02 13:30 | XACV_ITS ---
Exam Room: 2 Ht: 157 cm Wt: 79 kg BSA: 1.90 m2 Gender: Female : 1945 Any Known Allergies: No known allergies Exam Priority: Routine Procedure(s): Procedure Description: Diagnostic procedure Procedure Description: Coronary Angiography CHAUKarleyMaureen Kruger; Diagnostic Cath Status: Urgent Diagnostic Findings * Left Main has no disease. * Circumflex has no disease. * Mid Left Anterior Descending: significant 80% stenosis, DUSTY: 3 flow. * Proximal Right Coronary Artery: total occlusion, DUSTY: 0 flow. * Distal Circumflex to AV groove continuation of Circumflex Artery collaterallization. * 1st Diagonal: severe 90% stenosis, DUSTY: 3 flow. * First Obtuse Marginal Branch Segment: significant 80% stenosis, DUSTY: 3 flow. * Coronary angiography shows right dominance. Conclusions 1. There is total occlusion coronary artery disease with two vessel disease. Recommendations * 1-Return to ICU for close monitoring and routine PCI care 2-Continue IV heparin drip as per ACS protocol 3-Hold Plavix for possible CABG 4-Statin with LDL goal of 70 mg/dl, aspirin 81 mg p.o. daily for life long 5-CT surgery consults for CABG 6-Optimal medical management for ND 7-Follow up with Dr. Reddy in four weeks and establish care with primary care physician. Diagnostic RX Recommendation: CABG Pressures Phase:Rest AO : 161 / 82 ( 111 ) @ 4:34:00 PM 131 / 98 ( 115 ) @ 4:35:00 PM 130 / 98 ( 114 ) @ 4:47:00 PM Clinical Evaluation EBL: 5mL-10mL Procedural Details Procedure Consent Obtained. Current Diagnosis : Chest Pain. Pre-Procedure Time Out. Identified patient by full name and date of as verbalized by the patient/guarantor. Does the consent match the physician's order: Yes. Accurate & Complete Informed Consent: Yes. Inpatient/Outpatient History & Physical on Chart: Yes. If H&P is completed, is and addenduem needed: No; If yes, is the addendum complete: N/A. Visualize and Verify Site with Patient/Guarantor: N/A. Relevant Radiology Images available: Yes. Pre-op teaching completed and patient verbalized understanding. The risks, benefits, and alternatives of sedation and/or procedure were discussed by physician. The patient agrees to continue. Procedure started. [facility] Clinical Fraility Score: 4: Vulnerable. Respiratory Support Technician Indications: Worsening Angina. Correct patient, site and procedure confirmed by cath team. Current diagnosis: Chest Pain. PERRLA. Strong, equal hand dual rate supervisor bilaterally. Lungs clear x 5 lobes. IV Site on Arrival: 20 gauge in the right anticubital. IV Fluids: 0.9% NaCl at KVO. 0 mL infused prior to laborer chemical processing. Oxygen started at 2liters/min via nasal canula. right groin was prepped with chloroprep then draped in the usual sterile fashion. right radial was prepped with chloroprep then draped in the usual sterile fashion. Baseline sample Acquired. HR: 71 BPM. Physician arrived. Physician scrubbed in. Immediate Pre-Procedure Time Out. Correct Patient: Yes; Correct Procedure: Yes; Correct Site: Yes; Correct Patient Position: Yes; Correct Supplies: Yes; Dried Flammable Prep: Yes; Blood Products Available: N/A;. Lidocaine 1% infiltrated to the right radial. Arterial access obtained. Wire unable to advance. Ultrasound being used to obtain access. An attempt to gain access to the right radial artery was unsuccessful. Manual pressure was held as needed to stop the bleeding. Lidocaine 1% infiltrated to the right groin. Arterial access obtained with micropuncture set. Wire unable to advanced. Wire and needle out. left groin was prepped with chloroprep then draped in the usual sterile fashion. Lidocaine 1% infiltrated to the left groin. Arterial access obtained with micropuncture set. Wire out. Glidewire inserted. Wire out. Contrast hand injected through the sheath. Glidewire inserted. A 5 [place] JL4 catheter in over wire. Multiple views taken of left coronary artery. Catheter removed over the exchange wire. A 5 [place] JR4 catheter in over wire. Multiple views taken of right coronary artery. Catheter removed over the exchange wire. A 5 [place] Angled Pig catheter in over wire. Catheter removed over the standard wire. A Left femoral angiogram was performed to determine safe placement of closure device. AngioSeal was attempted but wire was unable to advance. Sheath(s) sutured into position with 2-0 silk and sterile 4x4's and Op-site applied over the site. No oozing or signs and symptoms of hematoma noted. Arterial sheath flushed and connected to tranducer and pressure bag with heparinized saline. Post Procedure: Pulses reassessed and unchanged. PERRLA. Strong, equal hand dual rate supervisor bilaterally. No VTE prophylaxis required. Post-op diagnosis: CAD. Complications: None. Estimated blood loss: 5mL-10mL. Responsiveness - Normal response to verbal stimuli; alert and oriented, PERRLA. Airway - Unaffected, no intervention required; spontaneous ventilation. Circulation: W/N/L, pulses unchanged. Nausea/Vomiting: No. Procedure completed. Patient transferred by bed to ICU. Vital chart was stopped. A Suture was successful obtaining hemostatsis at the Left Femoral artery insertion site. Access Site Site: Left Femoral artery Sheath Size: 6 Fr Hemostasis Method: Suture Hemostasis Success: Successful Procedure Medications Start: 3:48 PM Stop: 3:48 PM Medication: Versed 1 mg and Fentanyl 25 mcg Amount: 1 Start: 3:52 PM Stop: 3:52 PM Medication: Versed Amount: 1 mg Route: I.V. Start: 3:59 PM Stop: 3:59 PM Medication: Versed 1 mg and Fentanyl 25 mcg Amount: 1 Route: I.V. Start: 3:58 PM Stop: 3:58 PM Medication: Nitrogylcerin Amount: 50 mcg Route: S.Q. Start: 4:03 PM Stop: 4:03 PM Medication: Nitrogylcerin Amount: 100 mcg Route: S.Q. Start: 4:27 PM Stop: 4:27 PM Medication: Benadryl Amount: 25 mg Route: I.V. Start: 4:37 PM Stop: 4:37 PM Medication: Versed Amount: 1 mg Route: I.V. I, the attending physician, have reviewed and verified all procedure medications. Yes, all medications given per verbal order History/Risk Factors Hypertension: Yes Dyslipidemia: No Peripheral Arterial Disease (PAD): No Myocardial Infarction (ND): No Obesity: No Renal Disease: No Tobacco Use: Current/Recent(w/in 1 year) Prior Interventions PCI: No CABG: No Valve Surgery: No Report Signatures Finalized by Jelani Reddy MD on 08/19/2024 12:03 AM
--- NOTE | 2024-08-02 14:52 | PC.NURSE ---
1415 -- Notified Dr. Reddy that Dr. Smith placed the lasix on hold due to concern of over diuresis due to low MAP and elevated BUN. Dr. Reddy stated that is fine.
--- NOTE | 2024-08-02 15:07 | P.PN_ITS ---
<Statement entered by Jelani Reddy MD - 08/17/24 17:55> Patient was evaluated and cared for in conjunction with an advanced practice practitioner. I personally examined the patient and reviewed the chart and all pertinent data including imaging, telemetry, and laboratory results. I discussed the patient in detail with the advanced practice practitioner. Please see their note for complete H&P testing result and agreed upon plan of care for the patient. Subjective 2 Subjective: Patient seen this morning. She has done well overnight, diuresing well, 1300 mL negative currently. Blood pressure well-controlled. She is to be n.p.o. after breakfast for possible left heart cath later today. Plan to add GDMT postprocedure. Vitals/I&O/Wt Last Vital Signs Temp 98.6 F 08/02/24 12:00 Pulse 68 08/02/24 14:00 Resp 25 H 08/02/24 14:00 BP 96/80 08/02/24 14:00 Pulse Ox 96 08/02/24 14:00 O2 Del Method Nasal Cannula 08/02/24 14:00 O2 Flow Rate 2 08/02/24 14:00 08/02/24 08/02/24 08/02/24 06:59 14:59 22:59 Intake Total 200 / 200 Output Total 950 / 2500 Balance -950 / -1320 200 / 200 Weight last 48 hrs Weight 175 lb 4.28 oz Weight 180 lb 12.465 oz Weight 184 lb 1.376 oz Physical Exam 2 Const: COMMON NORMALS: no acute distress and patient oriented x3 GENERAL APPEARANCE: cooperative and comfortable ORIENTATION/CONSCIOUSNESS: Yes awake, Yes oriented to person, Yes oriented to place and Yes oriented to time Chest: COMMONS NORMALS: normal inspection of the chest and normal palpation of entire chest wall CHEST: Yes Symmetrical chest wall rise Resp: COMMON NORMALS: normal respiratory effort, No retractions, No use of accessory muscles and clear to auscultation bilaterally EFFORT & INSPECTION: Yes symmetric chest movement AUSCULTATION: clear to auscultation bilaterally Cardio: COMMON NORMALS: regular rate, regular rhythm, S1 normal heart sound present, S2 normal heart sound present, No gallops present (Cardio), No clicks present (Cardio) and No rub (Cardio) RATE: regular rate RHYTHM: regular rhythm HEART SOUNDS: S1 normal heart sound present, S2 normal heart sound present and Murmur heart sound present systolic Intensity: II/ PERIPHERAL PULSES: radial pulses present Extremity: COMMON NORMALS: no pedal edema Neuro: COMMON NORMALS: patient oriented x3 and moves all extremities S ENSORIUM/ORIENTATION: Yes oriented to person, Yes oriented to place and Yes oriented to time Urinary Catheter Management: Kong: Cath Placed During This Visit: yes Reason for Continuing Indwelling Catheter: Accurate Measurement of Urinary Output in Critically Ill Patients Urinary Catheter Date of Insertion: 07/31/24 Data 08/01/24 03:19 08/02/24 06:09 Micro: Microbiology 07/31/24 22:47 Urine Culture - Final Urine Catheterized 08/01/24 03:15 Blood Culture - Preliminary Blood NEGATIVE TO DATE 08/01/24 03:19 Blood Culture - Preliminary Blood NEGATIVE TO DATE A&P Assessment and plan (1) New onset of congestive heart failure: She appears euvolemic and is ready for left heart cath to determine etiology of systolic heart failure. Lasix currently on hold. Continue aspirin, Plavix, statin. (2) Hypertension: Blood pressure well-controlled Qualifiers: Hypertension type: essential hypertension Qualified Code(s): I10 - Essential (primary) hypertension (3) Moderate aortic stenosis: She has moderate aortic stenosis mean gradient 8 mmHg SAMI 1.5 cm?, does not appear to be causing significant symptoms. Attestations 2 Medical Necessity Statement*: Ischemic workup for new onset systolic heart failure Coding Level of Care Code Acute Code for g Fwd Diagnoses New onset of congestive heart failure I50.9 Essential hypertension I10 Hypertension type: essential hypertension Moderate aortic stenosis I35.0
--- NOTE | 2024-08-02 15:17 | W.PM.OPSUD ---
Surgery/Procedure H&P Update DATE OF PROCEDURE: August 02, 2024 DATE H&P PERFORMED: 07/31/24 PREOP DIAGNOSIS: New onset of heart failure with moderately depressed left ventricular eject PRIMARY INDICATION FOR PROCEDURE: New onset heart failure moderately depressed left medical ejection fraction Chest pain PATIENT REASSESSED PRIOR TO SEDATION, WITH NO CHANGE NOTED: Yes PHYSICAL EXAM: alert, oriented x 3, clear to auscultation bilaterally, regular rate & rhythm and operative site marked AIRWAY EVAL/ANESTHESIA PLAN: ASA II, Risks, benefits & alternatives of sedation and/or procedure discussed and Patient agrees to continue as planned
--- NOTE | 2024-08-02 17:13 | PM.PROC ---
Procedure Note: Date of procedure: 08/02/24 Pre-procedure diagnosis: New onset of heart failure Post-procedure diagnosis: same Procedure: Left heart cath Due radial artery spasm and very torturous right iliac blood vessels left common femoral artery was used to perform left heart catheterization, aorta was tortuous as well. Patient was noted to have normal left main mid LAD has moderate to severe eccentric lesion diagonal and obtuse marginal has significant lesions RCA is completely occluded. Patient was taken off the table to discuss the option of CABG versus multivessel PCI. Plan Sheath pulled once PTT is less than 45 Bedrest for 5 hours Hold IV Lasix today Will load her with 300 mg of Plavix tonight after completing bedrest Will discuss with the patient regarding CABG versus multivessel PCI further plan be advised as per progress the patient continue aspirin and statin. Full dictated note to follow Coding Level of Care Code Acute Code for Enzo Lord
[2024-08-02] MEDS: cefTRIAXone 1,000 mg SDV 1000 MG IVP (18:42)
[2024-08-02] MEDS: clopidogrel 300 mg Tablet PO (18:43)
--- NOTE | 2024-08-02 19:08 | PC.NURSE ---
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 Sheath in place to Left groin. TR band in place to right wrist. 173 -- V/S stable Sheath DCd from Left groin, manual pressure applied x 15 minutes. No bruising or hematoma noted. Gauze and clear occlusive dressing applied. Tolerated well. 1754 -- Dressing to left groin c/d/i with no bleeding or hematoma noted. 2mL air removed from right radial TR band. 1814 -- 2 ml air removed from right radial TR band.
[2024-08-02] MEDS: hyDRALAzine 20 mg/mL INJ 1 mL 10 MG IVP (19:18)
[2024-08-02] MEDS: atorvastatin 40 mg Tablet 80 MG PO (20:04)
[2024-08-02] MEDS: temazepam 15 mg Capsule PO (20:04)
--- NOTE | 2024-08-02 20:30 | PC.NURSE ---
Left pedal pulse Patient's left pedal pulse noted to be more faint at +1, found with a doppler, as compared to her right pedal pulse at a +3 palpable. Both feet noted to be warm with no difference in color; patient denies extremity pain. Dr. Reddy notified.
--- NOTE | 2024-08-02 23:11 | ECG_ITS ---
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1945 Requested By: Josué Nguyễn Order Number: [id number] Durga MD: SHIRA KATHLEEN Measurements Intervals [place] Rate: 55 P: -12 WV: 142 QRS: 45 QRSD: 107 T: 31 QT: 383 QTc: 368 Interpretive Statements SINUS BRADYCARDIA MODERATE VOLTAGE CRITERIA FOR LVH, CONSIDER NORMAL VARIANT [MEETS CRITERIA IN ONE OF: R(aVL), S(V1), R(V5), R(V5/V6)+S(V1)] ST DEVIATION AND MODERATE T-WAVE ABNORMALITY, CONSIDER ANTEROLATERAL ISCHEMIA [-0.1+ mV T-WAVE IN V3-V6] Compared to ECG 07/31/2024 15:19:28 T-wave abnormality now present Possible ischemia now present Sinus rhythm no longer present Sinus arrhythmia no longer present Left bundle-branch block no longer present Electronically Signed On 08-02-2024 23:32:07 KNIFER UP by SHIRA KATHLEEN [email or web address]
--- NOTE | 2024-08-02 23:49 | PC.NURSE ---
Rhythm Changes Patient's heart rhythm intermittently changing into sinus bradycardia with a heart rate around 44-50 then returning to previous rate. Patient denies chest pain, nausea, or other symptoms. Vital signs stable. Dr. Reddy notified.
--- NOTE | 2024-08-02 23:53 | PC.NURSE ---
Addendum entered by Nika Shoemaker RN 08/02/24 23:56: Time removed 2006. Original Note: TR band Removal Last 2 ml of air removed from TR band at 207. No hematoma or bleeding noted; clear dressing applied.
[2024-08-03] VITALS (29 sets, daily range): BP systolic 89–149; BP diastolic 54–80; PULSE 63–88; RESP 13–34; TEMP 36.4–37.4; O2SAT 87–97; BMI 32.6
[2024-08-03 04:59] LABS: Basophils % 0.5 %; Eosinophils # 0.3 10^3/uL (0.0-0.8); Eosinophils % 3.8 %; Hematocrit 42.6 % (36-47); Lymphocytes # 1.8 10^3/uL (0.8-4.8); Lymphocytes % 24.6 %; Mean Corpuscular HGB Conc 30.5 g/dL (30-55); Mean Corpuscular Hemoglobin 27.8 pg (27-33); Mean Platelet Volume 9.8 fL (7.4-10.4); Monocytes # 0.8 10^3/uL (0.2-0.9); Monocytes % 11.3 %; Neutrophils # 4.34 10^3/uL (1.8-7.7); Neutrophils % 59.4 %; Nucleated Red Blood Cells % 0 %; Platelet Count 394 10^3/cmm (157-399); Red Blood Count 4.68 10^6/uL (3.85-5.65); Red Cell Distribution Width 14.1 % (12.1-15.1); White Blood Count 7.32 10^3/uL (3.29-11.43)
[2024-08-03 05:16] LABS: Anion Gap 11.9 (5-19); Blood Urea Nitrogen 26 mg/dL (8-23); Calcium 10.9 mg/dL (8.5-10.5); Carbon Dioxide 30 mmol/L (22-29); Chloride 102 mmol/L (98-107); Creatinine Clr Calc Pharmacy 54.7719; Glucose 114 mg/dL (65-115); Magnesium 2.2 mg/dL (1.7-2.3); Osmolality Calculated 296 mOsm/kg (285-295); Potassium 3.9 mmol/L (3.5-5.1); Sodium 140 mmol/L (136-145)
[2024-08-03] MEDS: nicotine 7 mg Patch 1 PATCH TRANSDERMA (08:18)
[2024-08-03] MEDS: heparin 5,000 unit/mL INJ 1 mL 5000 UNIT SUBCUT ×2 (08:19→20:39)
[2024-08-03] MEDS: pantoprazole DR 40 mg Tablet PO (08:20)
[2024-08-03] MEDS: clopidogrel 75 mg Tablet PO (08:20)
[2024-08-03] MEDS: PARoxetine 20 mg Tablet 10 MG PO (08:20)
[2024-08-03] MEDS: aspirin 81 mg EC Tablet PO (08:20)
--- NOTE | 2024-08-03 10:07 | PC.NURSE ---
Dr. Reddy to bedside and discussed patient options for cardiac stents vs cardiac bypass surgery.
--- NOTE | 2024-08-03 14:00 | P.PN_ITS ---
Subjective 2 Subjective: Underwent coronary angiogram breathing multivessel coronary artery disease Patient not interested in CABG at this time. Plan to go for staged PCI procedure Monday morning Subjectively she feels better. Is on room air at this time. Vitals/I&O/Wt Last Vital Signs Temp 98.8 F 08/03/24 12:00 Pulse 67 08/03/24 12:00 Resp 19 H 08/03/24 12:00 BP 139/80 08/03/24 12:00 Pulse Ox 94 08/03/24 12:00 O2 Del Method Nasal Cannula 08/03/24 12:00 O2 Flow Rate 3 08/03/24 04:30 08/02/24 08/03/24 08/03/24 22:59 06:59 14:59 Intake Total 480 / 680 480 / 1160 350 / 350 Output Total 675 / 675 325 / 1000 Balance -195 / 5 155 / 160 350 / 350 Weight last 48 hrs Weight 81 kg Weight 79.5 kg Physical Exam 2 Narrative: General: Alert oriented x3, patient seen sitting up in bed on room air HEENT: Normocephalic, atraumatic, EOMI, Cardio: Regular rate rhythm, normal S1-S2, systolic murmur present Respiratory: v clear to auscultation bilaterally, GI: Abdomen soft, nontender, nondistended, bowel sounds + Behavior: Appropriate and cooperative Extremities: No edema bilateral lower extremity Urinary Catheter Management: Kong: Cath Placed During This Visit: yes Reason for Continuing Indwelling Catheter: Accurate Measurement of Urinary Output in Critically Ill Patients Urinary Catheter Date of Insertion: 07/31/24 Data 08/03/24 04:30 08/03/24 04:30 Micro: Microbiology 07/31/24 22:47 Urine Culture - Final Urine Catheterized A&P Assessment and plan (1) Hypertension: Qualifiers: Hypertension type: essential hypertension Qualified Code(s): I10 - Essential (primary) hypertension (2) CHF (congestive heart failure): Qualifiers: Heart failure chronicity: acute Heart failure type: unspecified Qualified Code(s): I50.9 - Heart failure, unspecified (3) Supplemental oxygen dependent: (4) New onset of congestive heart failure: (5) Pulmonary edema: (6) Smoker: (7) Left bundle branch block: (8) Goals of care, counseling/discussion: (9) Noncompliance: (10) Chest pressure: (11) Systolic murmur: Plan #New onset congestive heart failure most likely systolic #Pulmonary edema, new onset #New left bundle branch block or old, do not have an old EKG to compare to #Hypertensive urgency #Anxiety #Noncompliance to medical treatment and medications #Smoker ? Will provide 7 g nicotine patches per patient's request at this time ? Lasix 60 IV given in ER. Will place on Lasix 40 IV twice daily ? First troponin 15, second and subsequent 6-hour troponin pending at this time ? EKG showed left bundle branch block ? Echo ordered ? Patient having chest pressure. Will place on nitro drip. ? Discussed with certified juvenile probation officer over the phone. Consult Dr. Reddy ? N.p.o. at midnight in case of angiogram being planned for the morning ? Patient will need diuresis and further workup for new onset congestive heart failure ? Will order Xanax 0.25 twice daily as needed for anxiety ? Check hemoglobin A1c, lipid profile, TSH ? Wean off oxygen as able ? Place Kong catheter for accurate output ? Due to active heart failure I will hold off on adding a beta-davion at this time. ? Placed on aspirin and Plavix ? In case delta troponin is positive at 6 hours patient will need to be anticoagulated at that time. Full code DVT prophylaxis: Heparin SQ twice daily Patient would like to appoint her sister and 2 children to be DPOA. seafood process worker to see her in AM. Her has . 08/01/2024 Continue on nicotine patch await echo continue lasix 40 iv BID - continue to supplement potassium - cardiology following a1c 5.1 lipid profile reviewed, pt on atorvastatin 80 tsh pending - wean off o2 as able - continue aspirin plavix continue xanax bid prn may transfer to [facility] 08/02/2024 -Patient placed on Lasix 40 IV 3 times daily ? A1c 5.1. ? TSH pending ? Continue aspirin Plavix. ? Plan for coronary angiogram today. ? Echo reviewed. EF 44% with global hypokinesia grade 1 diastolic dysfunction. ? Cardiology following, appreciate recommendations. 08/03/2024 Hold further Lasix at this time. Patient getting alkalotic. ? She is euvolemic at this time. On room air now. Lungs clear to auscultation. ? Status post coronary angiogram. Echo reviewed. ? Plan for PCI Monday morning for staged procedure. 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 ? Continue to monitor at this time. ? Continue atorvastatin aspirin Plavix. Attestations 2 Medical Necessity Statement*: Ischemic workup for new onset systolic heart failure Diagnoses Essential hypertension I10 Hypertension type: essential hypertension CHF (congestive heart failure) I50.9 Heart failure chronicity: acute Heart failure type: unspecified Supplemental oxygen dependent Z99.81 New onset of congestive heart failure I50.9 Pulmonary edema J81.1 Smoker F17.200 Left bundle branch block I44.7 Goals of care, counseling/discussion Z71.89 Noncompliance Z91.199 Chest pressure R07.89 Systolic murmur R01.1
[2024-08-03] MEDS: acetaminophen 325 mg Tablet 650 MG PO (15:31)
--- NOTE | 2024-08-03 16:12 | PC.NURSE ---
Tylenol and warm pack placed to left hip and lower back for pain. Patient currently resting with no pain.
[2024-08-03] MEDS: cefTRIAXone 1,000 mg SDV 1000 MG IVP (18:00)
[2024-08-03] MEDS: atorvastatin 40 mg Tablet 80 MG PO (20:39)
[2024-08-03] MEDS: temazepam 15 mg Capsule PO (20:43)
--- NOTE | 2024-08-03 21:11 | P.PN_ITS ---
Subjective 2 Subjective: Patient underwent left heart cath yesterday noted to have triple-vessel disease including mid LAD mid diagonal and mid circumflex, RCA was noted to be 100% chronically occluded with [id number] collaterals. Patient has moderate LV dysfunction. Patient was taken off of the table and given choice for CABG versus PCI. After detailed discussion patient would not like to consider CABG and would like to proceed with PCI. Vitals/I&O/Wt Last Vital Signs Temp 98.8 F 08/03/24 18:00 Pulse 82 08/03/24 18:00 Resp 13 08/03/24 18:00 BP 149/69 08/03/24 18:00 Pulse Ox 95 08/03/24 18:00 O2 Del Method Oxymask 08/03/24 18:00 O2 Flow Rate 3 08/03/24 18:00 08/03/24 08/03/24 08/03/24 06:59 14:59 22:59 Intake Total 480 / 1160 650 / 650 100 / 750 Output Total 325 / 1000 375 / 375 Balance 155 / 160 650 / 650 -275 / 375 Weight last 48 hrs Weight 178 lb 9.191 oz Weight 175 lb 4.28 oz Physical Exam 2 Const: OTHER: GENERAL: Patient is alert, awake and oriented x3. HEART: Regular S1 and S2. No murmur, rub or gallop. LUNGS: Clear to auscultate bilaterally. CENTRAL NERVOUS SYSTEM: Grossly nonfocal. EXTREMITIES: Lower extremities with out edema bilaterally. Urinary Catheter Management: Kong: Cath Placed During This Visit: yes Reason for Continuing Indwelling Catheter: Accurate Measurement of Urinary Output in Critically Ill Patients Urinary Catheter Date of Insertion: 07/31/24 Data 08/03/24 04:30 08/03/24 04:30 A&P Assessment and plan (1) CAD (coronary artery disease): (2) LV dysfunction: Plan Multivessel coronary artery disease as defined above Moderate depressed left ventricle ejection for Acute decompensated new onset of systolic heart failure Hypertension Lasix was on hold as patient well compensated Continue aspirin statin and beta-davion I have detailed discussion with the patient regarding CABG versus PCI. Patient was given choice to see surgeon for possible bypass however she has told me given her age lung condition and not a much capacity to heal after surgery she would like to consider PCI. She understand risk-benefit and alternative for the procedure. Would like to proceed with PCI send patient has declined CABG. Attestations 2 Medical Necessity Statement*: Patient require continuation hospitalization for above defined care Coding Level of Care Code Acute Code for Chg Fwd Diagnoses CAD (coronary artery disease) I25.10 LV dysfunction I51.9
[2024-08-04] VITALS (28 sets, daily range): BP systolic 69–148; BP diastolic 43–83; PULSE 64–155; RESP 12–28; TEMP 36.6–37.4; O2SAT 89–99
[2024-08-04] MEDS: isosorbide mononitrate ER 30 mg Tablet PO ×2 (00:20→08:49)
[2024-08-04] MEDS: lisinopril 10 mg Tablet PO ×2 (00:20→08:48)
[2024-08-04 05:12] LABS: Basophils % 0.6 %; Eosinophils # 0.3 10^3/uL (0.0-0.8); Eosinophils % 4.4 %; Hematocrit 42.1 % (36-47); Lymphocytes # 1.7 10^3/uL (0.8-4.8); Lymphocytes % 24.6 %; Mean Corpuscular HGB Conc 29.9 g/dL (30-55); Mean Corpuscular Hemoglobin 27.8 pg (27-33); Mean Corpuscular Volume 92.9 fl (85-98); Mean Platelet Volume 10.3 fL (7.4-10.4); Monocytes # 0.7 10^3/uL (0.2-0.9); Monocytes % 9.6 %; Neutrophils # 4.27 10^3/uL (1.8-7.7); Neutrophils % 60.4 %; Nucleated Red Blood Cells % 0 %; Platelet Count 367 10^3/cmm (157-399); Red Blood Count 4.53 10^6/uL (3.85-5.65); White Blood Count 7.07 10^3/uL (3.29-11.43)
[2024-08-04 05:39] LABS: Anion Gap 14.6 (5-19); Blood Urea Nitrogen 21 mg/dL (8-23); Calcium 10.7 mg/dL (8.5-10.5); Carbon Dioxide 28 mmol/L (22-29); Chloride 99 mmol/L (98-107); Creatinine Clr Calc Pharmacy 55.3031; Glucose 100 mg/dL (65-115); Magnesium 2.2 mg/dL (1.7-2.3); Osmolality Calculated 287 mOsm/kg (285-295); Potassium 4.6 mmol/L (3.5-5.1); Sodium 137 mmol/L (136-145)
[2024-08-04] MEDS: PARoxetine 20 mg Tablet 10 MG PO (08:48)
[2024-08-04] MEDS: pantoprazole DR 40 mg Tablet PO (08:48)
[2024-08-04] MEDS: clopidogrel 75 mg Tablet PO (08:48)
[2024-08-04] MEDS: heparin 5,000 unit/mL INJ 1 mL 5000 UNIT SUBCUT ×2 (08:49→20:35)
[2024-08-04] MEDS: aspirin 81 mg EC Tablet PO (08:49)
[2024-08-04] MEDS: nicotine 7 mg Patch 1 PATCH TRANSDERMA (08:49)
--- NOTE | 2024-08-04 10:31 | XRR_ITS ---
PROCEDURE INFORMATION: Exam: XR Chest Exam date and time: 08/04/2024 1:51 PM Age: 79 years old Clinical indication: Patient HX: Pulmonary edema; SOB TECHNIQUE: Imaging protocol: Radiologic exam of the chest. Views: 1 view. COMPARISON: CT angio chest PE protcl [id number] 07/31/2024 4:13 PM FINDINGS: Lungs: Bilateral lower lobe atelectasis. Decrease in the pulmonary edema. Pleural spaces: Decrease in the bilateral pleural effusions. Heart/Mediastinum: Mild cardiomegaly. Bones/joints: Post right rotator cuff repair. Mild degenerative disease of bilateral acromioclavicular joints. Mild curvature of the thoracic spine convex to the right. XR/XR chest 1V portable [id number] IMPRESSION: Decrease in the pulmonary edema, bilateral pleural effusions and bilateral lower lobe atelectasis.
[2024-08-04] MEDS: sodium chloride 0.9% 250 ML IV (11:32)
--- NOTE | 2024-08-04 11:39 | PC.NURSE ---
noted blood pressure decreased doctor Sarah here orders noted ns bolus started
[2024-08-04] MEDS: sodium chloride 0.9% 1,000 ML 75 ML IV (12:37)
--- NOTE | 2024-08-04 16:00 | PM.PN ---
Subjective Subjective: Seen this morning On 2 L nasal cannula at this time. Had a bowel movement overnight. Denies any chest pain at this time. Plan for angiogram in a.m. Vitals/I&O/Wt Last Vital Signs Temp 98.6 F 08/04/24 12:00 Pulse 72 08/04/24 14:12 Resp 18 08/04/24 14:00 BP 100/55 08/04/24 14:00 Pulse Ox 96 08/04/24 14:00 O2 Del Method Room Air 08/04/24 14:00 O2 Flow Rate 3 08/04/24 08:05 08/04/24 08/04/24 08/04/24 06:59 14:59 22:59 Intake Total 200 / 1050 690 / 690 Output Total 400 / 775 Balance -200 / 275 690 / 690 Weight last 48 hrs Weight 81.329 kg Weight 81 kg Physical Exam Narrative: General: Alert oriented x3, patient seen sitting up in bed on room air HEENT: Normocephalic, atraumatic, EOMI, Cardio: Regular rate rhythm, normal S1-S2, systolic murmur present Respiratory: v clear to auscultation bilaterally, GI: Abdomen soft, nontender, nondistended, bowel sounds + Behavior: Appropriate and cooperative Extremities: No edema bilateral lower extremity Urinary Catheter Management: Kong: Cath Placed During This Visit: yes Reason for Continuing Indwelling Catheter: Accurate Measurement of Urinary Output in Critically Ill Patients Urinary Catheter Date of Insertion: 07/31/24 Data 08/04/24 04:33 08/04/24 04:33 A&P Assessment and plan (1) Hypertension: Qualifiers: Hypertension type: essential hypertension Qualified Code(s): I10 - Essential (primary) hypertension (2) CHF (congestive heart failure): Qualifiers: Heart failure chronicity: acute Heart failure type: unspecified Qualified Code(s): I50.9 - Heart failure, unspecified (3) Supplemental oxygen dependent: (4) New onset of congestive heart failure: (5) Pulmonary edema: (6) Smoker: (7) Left bundle branch block: (8) Goals of care, counseling/discussion: (9) Noncompliance: (10) Chest pressure: (11) Systolic murmur: Plan #New onset congestive heart failure most likely systolic #Pulmonary edema, new onset #New left bundle branch block or old, do not have an old EKG to compare to #Hypertensive urgency #Anxiety #Noncompliance to medical treatment and medications #Smoker ? Will provide 7 g nicotine patches per patient's request at this time ? Lasix 60 IV given in ER. Will place on Lasix 40 IV twice daily ? First troponin 15, second and subsequent 6-hour troponin pending at this time ? EKG showed left bundle branch block ? Echo ordered ? Patient having chest pressure. Will place on nitro drip. ? Discussed with armature straightener over the phone. Consult Dr. Reddy ? N.p.o. at midnight in case of angiogram being planned for the morning ? Patient will need diuresis and further workup for new onset congestive heart failure ? Will order Xanax 0.25 twice daily as needed for anxiety ? Check hemoglobin A1c, lipid profile, TSH ? Wean off oxygen as able ? Place Kong catheter for accurate output ? Due to active heart failure I will hold off on adding a beta-davion at this time. ? Placed on aspirin and Plavix ? In case delta troponin is positive at 6 hours patient will need to be anticoagulated at that time. Full code DVT prophylaxis: Heparin SQ twice daily Patient would like to appoint her sister and 2 children to be DPOA. highway maintenance worker to see her in AM. Her has . 08/01/2024 Continue on nicotine patch await echo continue lasix 40 iv BID - continue to supplement potassium - cardiology following a1c 5.1 lipid profile reviewed, pt on atorvastatin 80 tsh pending - wean off o2 as able - continue aspirin plavix continue xanax bid prn may transfer to [facility] 08/02/2024 -Patient placed on Lasix 40 IV 3 times daily ? A1c 5.1. ? TSH pending ? Continue aspirin Plavix. ? Plan for coronary angiogram today. ? Echo reviewed. EF 44% with global hypokinesia grade 1 diastolic dysfunction. ? Cardiology following, appreciate recommendations. 08/03/2024 Hold further Lasix at this time. Patient getting alkalotic. ? She is euvolemic at this time. On room air now. Lungs clear to auscultation. ? Status post coronary angiogram. Echo reviewed. ? Plan for PCI Monday morning for staged procedure. 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 ? Continue to monitor at this time. ? Continue atorvastatin aspirin Plavix. 08/04/2024 ?Hold further Lasix at this time patient euvolemic ? Patient on 2 L nasal cannula ?? Plan for PCI Monday morning for staged procedure. 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 ? Continue to monitor ? N.p.o. at midnight. Attestations Medical Necessity Statement*: Patient require continuation hospitalization for above defined care Diagnoses Essential hypertension I10 Hypertension type: essential hypertension CHF (congestive heart failure) I50.9 Heart failure chronicity: acute Heart failure type: unspecified Supplemental oxygen dependent Z99.81 New onset of congestive heart failure I50.9 Pulmonary edema J81.1 Smoker F17.200 Left bundle branch block I44.7 Goals of care, counseling/discussion Z71.89 Noncompliance Z91.199 Chest pressure R07.89 Systolic murmur R01.1
[2024-08-04] MEDS: cefTRIAXone 1,000 mg SDV 1000 MG IVP (17:50)
[2024-08-04] MEDS: ALPRAZolam 0.5 mg Tablet 0.25 MG PO (18:36)
[2024-08-04] MEDS: amitriptyline 25 mg Tablet 12.5 MG PO (20:34)
[2024-08-04] MEDS: atorvastatin 40 mg Tablet 80 MG PO (20:34)
--- NOTE | 2024-08-04 21:44 | P.PN_ITS ---
Subjective 2 Subjective: Had episode of hypotension Denies chest pain Vitals/I&O/Wt Last Vital Signs Temp 99.4 F 08/04/24 17:00 Pulse 155 H 08/04/24 20:00 Resp 22 H 08/04/24 20:00 BP 134/64 08/04/24 20:00 Pulse Ox 96 08/04/24 20:00 O2 Del Method Nasal Cannula 08/04/24 18:00 O2 Flow Rate 2 08/04/24 17:00 08/04/24 08/04/24 08/04/24 06:59 14:59 22:59 Intake Total 200 / 1050 690 / 690 200 / 890 Output Total 400 / 775 400 / 400 Balance -200 / 275 690 / 690 -200 / 490 Weight last 48 hrs Weight 179 lb 4.8 oz Weight 178 lb 9.191 oz Physical Exam 2 Const: COMMON NORMALS: alert OTHER: GENERAL: Patient is alert, awake and oriented x3. HEART: Regular S1 and S2. No murmur, rub or gallop. LUNGS: Clear to auscultate bilaterally. CENTRAL NERVOUS SYSTEM: Grossly nonfocal. EXTREMITIES: Lower extremities with out edema bilaterally. Resp: COMMON NORMALS: clear to auscultation bilaterally AUSCULTATION: clear to auscultation bilaterally Neuro: SENSORIUM/ORIENTATION: Yes alert Urinary Catheter Management: Kong: Cath Placed During This Visit: yes Reason for Continuing Indwelling Catheter: Accurate Measurement of Urinary Output in Critically Ill Patients Urinary Catheter Date of Insertion: 07/31/24 Data 08/04/24 04:33 08/04/24 04:33 A&P Assessment and plan (1) CAD (coronary artery disease): (2) LV dysfunction: Plan Multivessel coronary artery disease as defined above Moderate depressed left ventricle ejection for Acute decompensated new onset of systolic heart failure Hypertension Lasix was on hold as patient well compensated Continue aspirin statin and beta-davion I have detailed discussion with the patient regarding CABG versus PCI. Patient was given choice to see surgeon for possible bypass however she has told me given her age lung condition and not a much capacity to heal after surgery she would like to consider PCI. She understand risk-benefit and alternative for the procedure. Would like to proceed with PCI send patient has declined CABG. On today's visit dated 08/04/2024 patient denies any chest pain, patient had episode of hypotension blood pressure low in the lower side most likely she is being over diuresed and drop the blood pressure will give her back some volume advised to give patient bolus of IV fluid 250 mL followed by 100 mL/h for 1 L. Patient was discussed regarding possible PCI tomorrow. She will be n.p.o. overnight. Patient refused CABG and would like to proceed with intervention percutaneous. She will be loaded overnight with Plavix Attestations 2 Medical Necessity Statement*: Require continuation hospitalization for above defined care Coding Level of Care Code Acute Code for g Fwd Diagnoses CAD (coronary artery disease) I25.10 LV dysfunction I51.9
[2024-08-05] VITALS (48 sets, daily range): BP systolic 97–157; BP diastolic 50–92; PULSE 63–95; RESP 13–30; TEMP 36.8–37.6; O2SAT 89–99
[2024-08-05] MEDS: sodium chloride 0.9% 1,000 ML 50 ML IV (02:33)
--- NOTE | 2024-08-05 04:58 | PM.PN ---
Subjective Subjective: T max 99.4F, planned angiogram today Vitals/I&O/Wt Last Vital Signs Temp 99.4 F 08/04/24 17:00 Pulse 78 08/05/24 04:00 Resp 18 08/05/24 04:00 BP 111/53 08/05/24 04:00 Pulse Ox 93 08/05/24 03:00 O2 Del Method Nasal Cannula 08/04/24 18:00 O2 Flow Rate 2 08/04/24 17:00 08/04/24 08/04/24 08/05/24 14:59 22:59 06:59 Intake Total 690 / 690 200 / 890 1000 / 1890 Output Total 400 / 400 Balance 690 / 690 -200 / 490 1000 / 1490 Weight last 48 hrs Weight 81.329 kg Weight 81 kg Physical Exam Narrative: General: No acute distress, AO x3 HEENT: PERRLA, pupils bilaterally equal and reactive, pallors not present Chest: Normal vesicular breath sounds, no added sounds, equal good air entry bilaterally CVS: S1-S2 regular, no murmurs, no tachycardia, no gallops, no rubs Abdomen: Soft, nontender, no organomegaly, bowel sounds present Neuro: No focal deficits, no facial deformity, AO x3, power 5/5 in all limbs Urinary Catheter Management: Kong: Cath Placed During This Visit: yes Reason for Continuing Indwelling Catheter: Accurate Measurement of Urinary Output in Critically Ill Patients Urinary Catheter Date of Insertion: 07/31/24 Data 08/05/24 05:37 08/05/24 05:37 A&P Assessment and plan (1) Hypertension: Qualifiers: Hypertension type: essential hypertension Qualified Code(s): I10 - Essential (primary) hypertension (2) CHF (congestive heart failure): Qualifiers: Heart failure chronicity: acute Heart failure type: unspecified Qualified Code(s): I50.9 - Heart failure, unspecified (3) Supplemental oxygen dependent: (4) New onset of congestive heart failure: (5) Pulmonary edema: (6) Smoker: (7) Left bundle branch block: (8) Goals of care, counseling/discussion: (9) Noncompliance: (10) Chest pressure: (11) Systolic murmur: Plan #New onset congestive heart failure most likely systolic #Pulmonary edema, new onset #New left bundle branch block or old, do not have an old EKG to compare to #Hypertensive urgency #Anxiety #Noncompliance to medical treatment and medications #Smoker ? Will provide 7 g nicotine patches per patient's request at this time ? Lasix 60 IV given in ER. Will place on Lasix 40 IV twice daily ? First troponin 15, second and subsequent 6-hour troponin pending at this time ? EKG showed left bundle branch block ? Echo ordered ? Patient having chest pressure. Will place on nitro drip. ? Discussed with spanish language lecturer over the phone. Consult Dr. Reddy ? N.p.o. at midnight in case of angiogram being planned for the morning ? Patient will need diuresis and further workup for new onset congestive heart failure ? Will order Xanax 0.25 twice daily as needed for anxiety ? Check hemoglobin A1c, lipid profile, TSH ? Wean off oxygen as able ? Place Kong catheter for accurate output ? Due to active heart failure I will hold off on adding a beta-davion at this time. ? Placed on aspirin and Plavix ? In case delta troponin is positive at 6 hours patient will need to be anticoagulated at that time. Full code DVT prophylaxis: Heparin SQ twice daily Patient would like to appoint her sister and 2 children to be DPOA. sand control worker to see her in AM. Her has . 08/01/2024 Continue on nicotine patch await echo continue lasix 40 iv BID - continue to supplement potassium - cardiology following a1c 5.1 lipid profile reviewed, pt on atorvastatin 80 tsh pending - wean off o2 as able - continue aspirin plavix continue xanax bid prn may transfer to [facility] 08/02/2024 -Patient placed on Lasix 40 IV 3 times daily ? A1c 5.1. ? TSH pending ? Continue aspirin Plavix. ? Plan for coronary angiogram today. ? Echo reviewed. EF 44% with global hypokinesia grade 1 diastolic dysfunction. ? Cardiology following, appreciate recommendations. 08/03/2024 Hold further Lasix at this time. Patient getting alkalotic. ? She is euvolemic at this time. On room air now. Lungs clear to auscultation. ? Status post coronary angiogram. Echo reviewed. ? Plan for PCI Monday morning for staged procedure. 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 ? Continue to monitor at this time. ? Continue atorvastatin aspirin Plavix. 08/04/2024 ?Hold further Lasix at this time patient euvolemic ? Patient on 2 L nasal cannula ?? Plan for PCI Monday morning for staged procedure. 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 ? Continue to monitor ? N.p.o. at midnight. 08/05/23: Chart reviewed. Patient admitted on 07/31/23 with c/o shortness of breath. Found to have new LBBB, 02 requirement of 5 lpm. CTA negative for PE. Showing B/L GGOs and Pleural effusions rasiing concern for CHF. Echocardiogram with EF 44% , gr 1 diatsolic dysfunction. May have underlying COPD given h/o chronic smoking, doesnt appear to have a formal diagnosis of the same. Undergoing diuresis with Lasix, which is now on hold. Currently euvolemic. Underwent LHC on 08/02 which showed multivessel disease- given option for CABG vs multivessel PCI- patient has opted for the latter- planned for procedure today. T max 99.4-99.8 this admission. Negative PCR for COVID, Flu and RSV upon admission. rest N/A. Completed 5 days of presumptive Ceftriaxone treatment For CAP 07/31-08/04. D/c today. Add atypical coverage with azithromycin 500mg TID x 3 days. No leukocytosis, 02 requirement improving. D/c orders for home dose ASA 625 mg BID as currently also on ASA 81mg and Plavix 75mg daily. LAst received 625 mg ASA dose on 08/03. Renew Hydrocodone/APAP for pain. Continue protonix for GI ppx. Attestations Medical Necessity Statement*: planned angiogram today Coding Level of Care Code Acute Code for Chg Fwd Diagnoses Essential hypertension I10 Hypertension type: essential hypertension CHF (congestive heart failure) I50.9 Heart failure chronicity: acute Heart failure type: unspecified Supplemental oxygen dependent Z99.81 New onset of congestive heart failure I50.9 Pulmonary edema J81.1 Smoker F17.200 Left bundle branch block I44.7 Goals of care, counseling/discussion Z71.89 Noncompliance Z91.199 Chest pressure R07.89 Systolic murmur R01.1
[2024-08-05] MEDS: azithromycin 250 mg Tablet 500 MG PO (05:39)
[2024-08-05] MEDS: chlorhexidine gluconate 4% Btl 118 mL 1 APPLIC TOPICAL (05:55)
--- NOTE | 2024-08-05 05:58 | XACV_ITS ---
Exam Room: 2 Ht: 157 cm Wt: 79 kg BSA: 1.90 m2 Gender: Female : 1945 Any Known Allergies: No known allergies Exam Priority: Routine Procedure(s): Procedure Description: Diagnostic procedure Procedure Description: PCI procedure Procedure Description: Drug Eluting Coronary Stent Procedure Description: PTCA Procedure Description: Miscellaneous Procedure Description: ACT Procedure Description: Coronary Angiography Maureen ELLIS; Diagnostic Cath Status: Elective Diagnostic Findings * Left Main has no disease. * Circumflex has no disease. * Mid Left Anterior Descending: severe 90% stenosis, DUSTY: 3 flow. * Proximal Right Coronary Artery: total occlusion, DUSTY: 0 flow. Not engaged it was known to be Occluded. * Distal Circumflex to AV groove continuation of Circumflex Artery collaterallization. * 1st Diagonal: significant 80% stenosis, DUSTY: 3 flow. * First Obtuse Marginal Branch Segment: significant 80% stenosis, DUSTY: 3 flow. * Known to be occluded with Left to right collaterals, it was not engaged. PCI Status: Elective PCI Indication: NSTE - ACS Interventional Findings * Mid Left Anterior Descendin% stenosis treated with a AB TREK 2.50X15 RX BALLOON, EDGAR Orozco MARISEL 3.0X30 FLORENTINO, and MDT NC EUPHORA RX [id number] BALLOON. 0% residual stenosis, DUSTY: 3 flow. * 1st Diagonal: 80% stenosis treated with a AB TREK 2.50X20 RX BALLOON, MDT R MARISEL 2.75X30 FLORENTINO, and MDT NC EUPHORA RX [id number] BALLOON. 0% residual stenosis, DUSTY: 3 flow. * First Obtuse Marginal Branch Segment: 80% stenosis treated with a AB TREK 2.50X15 RX BALLOON, MDT R MARISEL 2.75X30 FLORENTINO, and MDT NC EUPHORA RX [id number] BALLOON. 0% residual stenosis, DUSTY: 3 flow. Conclusions 1. There is total occlusion coronary artery disease with two vessel disease. 2. Mid Left Anterior Descending was treated with a Balloon, Drug Eluting Stent, and Balloon. 3. 1st Diagonal was treated with a Balloon, Drug Eluting Stent, and Balloon. 4. First Obtuse Marginal Branch Segment was treated with a Balloon, Drug Eluting Stent, and Balloon. 5. Patient underwent left heart catheterization for new onset of heart failure acute coronary syndrome pulmonary edema she was noted to have multivessel coronary artery disease including mid LAD, proximal to mid diagonal branch and mid obtuse marginal branch with high-grade stenosis. It was also learned that patient has 100% occluded chronic RCA with [id number] collaterals. Left ventricular ejection fraction was severely reduced. Patient was given option for CABG she was taken off of the table and discussed over next day or 2 patient decided she would not like to go for CABG and will only consider multivessel PCI. After carefully explaining all risk-benefit and alternative for the procedure today patient was brought in for multivessel PCI. It was performed without any complication. Patient tolerated procedure well.. Recommendations * 1-Return to inpatient for close monitoring and routine cath care 2-Risk factor modification for secondary prevention 3-Statin and aspirin 81 mg life-long, if tolerated 4-Patient was pre-loaded with 600 mg of Plavix on the floor, continue Plavix 75mg p.o. daily for at least one year. We will assess at the end of one year again to continue if further or not 5-Continue optimal medical management 6-Follow up with Dr. Reddy in four weeks and your primary care in 10 days. Diagnostic RX Recommendation: PCI w/o planned CABG Pressures Phase:Rest AO : 110 / 55 ( 76 ) @ 8:33:00 AM 112 / 58 ( 79 ) @ 8:49:00 AM 125 / 59 ( 81 ) @ 9:18:00 AM 117 / 60 ( 80 ) @ 9:37:00 AM Clinical Evaluation EBL: 5mL-10mL Procedural Details Procedure Consent Obtained. Admit Source: In Patient. Hemodynamic formulas in Rest were re-calculated based on hemoglobin value from 08/05/2024 5:37:00 AM. Pre-Procedure Time Out. Identified patient by full name and date of as verbalized by the patient/guarantor. Does the consent match the physician's order: Yes. Accurate & Complete Informed Consent: Yes. Inpatient/Outpatient History & Physical on Chart: Yes. If H&P is completed, is and addenduem needed: No; If yes, is the addendum complete: N/A. Visualize and Verify Site with Patient/Guarantor: N/A. Relevant Radiology Images available: Yes. Pre-op teaching completed and patient verbalized understanding. The risks, benefits, and alternatives of sedation and/or procedure were discussed by physician. The patient agrees to continue. Procedure started. Correct patient, site and procedure confirmed by cath team. PERRLA. Strong, equal hand tray room worker bilaterally. Lungs clear x 5 lobes. IV Site on Arrival: 20 gauge in the right forearm. Pre Procedural Pulses: bilateral dorsalis pedis was Doppled. Pre Procedural Pulses: bilateral posterior tibial was Doppled. Pre Procedural Pulses: bilateral radial was 2+. Oxygen started at 2liters/min via nasal canula. bilateral groins was prepped with chloroprep then draped in the usual sterile fashion. Baseline sample Acquired. HR: 82 BPM. Physician notified. Baseline sample Acquired. HR: 76 BPM. IV Fluids: 0.9% NaCl at KVO. 100 mL infused prior to molder labels. [facility] Clinical Fraility Score: 4: Vulnerable. Stained Glass Glazier Indications: Stable Known CAD. Chest Pain Symptom Assessment: Typical Angina Symptoms. Current diagnosis: NSTEMI. Physician arrived. Physician scrubbed in. Immediate Pre-Procedure Time Out. Correct Patient: Yes; Correct Procedure: Yes; Correct Site: Yes; Correct Patient Position: Yes; Correct Supplies: Yes; Dried Flammable Prep: Yes; Blood Products Available: No;. Lidocaine 1% infiltrated to the left groin. Arterial access obtained with micropuncture set. Hand injection of contrast through sheath. Glidewire in through sheath. 6fr short sheath exchanged for 6fr 45cm flexor sheath over glidewire. 6 latvian XB 3 guide catheter was inserted over the standard wire. Add inventory: Co-charter pilot, Endoflator. PCI Indication: NSTE. Runthrough guidewire was advanced through the guide catheter to lesion in the diaganol. Balloon inserted to lesion in the diaganol. Inflation number : 1 A AB TREK 2.50X20 RX BALLOON was prepped and advanced across the 1st Diag , then inflated to 8 LYNDON for 0:12 seconds. Inflation number: 2 The AB TREK 2.50X20 RX BALLOON was reinflated across the 1st Diag, to 8 LYNDON for 0:12 seconds. Balloon out. Stent inserted to lesion in the diaganol. Inflation Number : 3 A MDT R MARISEL 2.75X30 FLORENTINO -Lot Number# [id number] EXP 10-31-2026 was prepped and advanced across the 1st Diag. The stent was deployed at 12 LYNDON for 0:23 seconds. Stent balloon out over wire. ACT drawn. Results 246 seconds. Therapeutic limits - pre-heparin administration 90-150 seconds and monitoring heparin during a vascular procedure >250 seconds. Results checked. Balloon inserted to lesion in the diaganol. Inflation number : 4 A MDT NC EUPHORA RX 2.30U15UP BALLOON was prepped and advanced across the 1st Diag , then inflated to 10 LYNDON for 0:23 seconds. Inflation number: 5 The MDT NC EUPHORA RX [id number] BALLOON was reinflated across the 1st Diag, to 10 LYNDON for 0:20 seconds. Balloon out. 2nd runthrough wire in through guide catheter to lesion in LAD. 2nd runthrough wire out to reshape. 2nd runthrough wire in through guide catheter to lesion in mid LAD. Angiography performed. Guidewire advanced across lesion. Balloon inserted to lesion in the mid LAD. Inflation number : 1 A AB TREK 2.50X15 RX BALLOON was prepped and advanced across the Mid LAD , then inflated to 8 LYNDON for 0:23 seconds. Inflation number: 2 The AB TREK 2.50X15 RX BALLOON was reinflated across the Mid LAD, to 8 LYNDON for 0:17 seconds. Balloon out. Results checked. Stent inserted to lesion in the mid LAD. Inflation Number : 3 A MDT R MARISEL 3.0X30 FLORENTINO -Lot Number# [id number] EXP 10-05-2026 was prepped and advanced across the Mid LAD. The stent was deployed at 12 LNYDON for 0:27 seconds. Stent balloon out over wire. Balloon inserted to lesion in the mid LAD. Inflation number : 4 A MDT NC EUPHORA RX [id number] BALLOON was prepped and advanced across the Mid LAD , then inflated to 12 LYNDON for 0:22 seconds. Inflation number: 5 The MDT NC EUPHORA RX 3.37E43IQ BALLOON was reinflated across the Mid LAD, to 14 LYNDON for 0:22 seconds. Inflation number: 6 The MDT NC EUPHORA RX 3.27F06PH BALLOON was reinflated across the Mid LAD, to 8 LYNDON for 0:16 seconds. Balloon out. ACT drawn. Results 259 seconds. Therapeutic limits - pre-heparin administration 90-150 seconds and monitoring heparin during a vascular procedure >250 seconds. Results checked. 2nd runthrough wire repositioned to lesion in OM. 1st runthrough wire remains seated in diagonal artery. Balloon inserted to lesion in the OM. Inflation number : 1 A AB TREK 2.50X15 RX BALLOON was prepped and advanced across the 1st Ob Ava , then inflated to 12 LYNDON for 0:19 seconds. Inflation number: 2 The AB TREK 2.50X15 RX BALLOON was reinflated across the 1st Ob Ava, to 12 LYNDON for 0:15 seconds. Balloon out. Results checked. Stent inserted to lesion in the OM. Inflation Number : 3 A MDT R MARISEL 2.75X30 FLORENTINO -Lot Number# [id number] EXP 10-31-2026 was prepped and advanced across the 1st Ob Ava. The stent was deployed at 14 LYNDON for 0:27 seconds. Stent balloon out over wire. Balloon inserted to lesion in the OM. Inflation number : 4 A MDT NC EUPHORA RX [id number] BALLOON was prepped and advanced across the 1st Ob Ava , then inflated to 12 LYNDON for 0:15 seconds. Inflation number: 5 The MDT NC EUPHORA RX 3.84G99DY BALLOON was reinflated across the 1st Ob Ava, to 14 LYNDON for 0:14 seconds. Balloon out. ACT drawn. Results 308 seconds. Therapeutic limits - pre-heparin administration 90-150 seconds and monitoring heparin during a vascular procedure >250 seconds. Results checked. Both runthrough wires out. Results checked. Guide catheter out. Standard wire in through sheath. 6fr 45cm flexor sheath exchanged for new 6fr 11cm sheath over standard wire. A Suture was successful obtaining hemostatsis at the Left Femoral artery insertion site. Sheath(s) sutured into position with 2-0 silk and sterile 4x4's and Op-site applied over the site. No oozing or signs and symptoms of hematoma noted. Arterial sheath flushed and connected to tranducer and pressure bag with heparinized saline. Post Procedure: Pulses reassessed and unchanged. PERRLA. Strong, equal hand tray room worker bilaterally. No VTE prophylaxis required. Medication's Wasted: Lidocaine 1% = 10 mL. Medication's Wasted: Nitro = 49.4 mg. Medication's Wasted: Other = Versed 1 mg, Fentanyl 50mcg. Medication's Wasted: Heparin = 1000 unit. Total IV fluids: 200 mL. Post-op diagnosis: Nstemi, CHF, Multi-vessel CAD status post PCI with 3 stents to Mid LAD,Diagonal, and OM. Complications: None. Estimated blood loss: 5mL-10mL. Responsiveness - Normal response to verbal stimuli; alert and oriented, PERRLA. Airway - Unaffected, no intervention required; spontaneous ventilation. Circulation: W/N/L, pulses unchanged. Nausea/Vomiting: No. Procedure completed. Patient transferred by bed to ICU. Vital chart was stopped. Access Site Site: Left Femoral artery Sheath Size: 6 Fr Hemostasis Method: Suture Hemostasis Success: Successful Procedure Medications Start: 7:44 AM Stop: 7:44 AM Medication: Benadryl Amount: 50 mg Route: I.V. Start: 8:16 AM Stop: 8:16 AM Medication: Versed 1 mg and Fentanyl 25 mcg Amount: 1 Route: I.V. Start: 8:26 AM Stop: 8:26 AM Medication: Versed Amount: 1 mg Route: I.V. Start: 8:31 AM Stop: 8:31 AM Medication: Heparin Amount: 8000 units Route: I.V. Start: 8:48 AM Stop: 8:48 AM Medication: Nitrogylcerin Amount: 200 mcg Route: I.C. Start: 8:55 AM Stop: 8:55 AM Medication: Heparin Amount: 3000 units Route: I.V. Start: 8:56 AM Stop: 8:56 AM Medication: Versed Amount: 1 mg Route: I.V. Start: 9:13 AM Stop: 9:13 AM Medication: Fentanyl Amount: 25 mcg Route: I.V. Start: 9:19 AM Stop: 9:19 AM Medication: Nitrogylcerin Amount: 200 mcg Route: I.C. Start: 9:25 AM Stop: 9:25 AM Medication: Heparin Amount: 2000 units Route: I.V. Start: 9:36 AM Stop: 9:36 AM Medication: Nitrogylcerin Amount: 200 mcg Route: I.C. Start: 9:44 AM Stop: 9:44 AM Medication: Plavix Amount: 300 mg Route: P.O. I, the attending physician, have reviewed and verified all procedure medications. Yes, all medications given per verbal order History/Risk Factors Hypertension: Yes Dyslipidemia: No Peripheral Arterial Disease (PAD): No Myocardial Infarction (HI): No Obesity: No Renal Disease: No Tobacco Use: Current/Recent(w/in 1 year) Prior Interventions PCI: No CABG: No Valve Surgery: No Report Signatures Finalized by Jelani Reddy MD on 08/19/2024 12:50 AM
[2024-08-05] MEDS: aspirin 81 mg EC Tablet PO (06:05)
[2024-08-05] MEDS: clopidogrel 75 mg Tablet PO (06:07)
--- NOTE | 2024-08-05 06:09 | PC.NURSE ---
Early medications Spoke with Ana in manager laboratory and she requested this nurse give the patient's aspirin and plavix early before her scheduled procedure. Medications administered as requested.
[2024-08-05 06:11] LABS: Basophils % 0.3 %; Eosinophils # 0.3 10^3/uL (0.0-0.8); Hematocrit 39.2 % (36-47); Lymphocytes % 28.8 %; Mean Corpuscular HGB Conc 29.8 g/dL (30-55); Mean Corpuscular Hemoglobin 27.5 pg (27-33); Mean Corpuscular Volume 92.2 fl (85-98); Mean Platelet Volume 10.2 fL (7.4-10.4); Monocytes # 0.7 10^3/uL (0.2-0.9); Monocytes % 10.6 %; Neutrophils # 3.83 10^3/uL (1.8-7.7); Neutrophils % 56.2 %; Nucleated Red Blood Cells % 0 %; Platelet Count 354 10^3/cmm (157-399); Red Blood Count 4.25 10^6/uL (3.85-5.65); Red Cell Distribution Width 13.9 % (12.1-15.1); White Blood Count 6.81 10^3/uL (3.29-11.43)
[2024-08-05 06:33] LABS: Anion Gap 12.6 (5-19); Blood Urea Nitrogen 18 mg/dL (8-23); Calcium 10.2 mg/dL (8.5-10.5); Carbon Dioxide 25 mmol/L (22-29); Chloride 103 mmol/L (98-107); Creatinine Clr Calc Pharmacy 56.3656; Glucose 100 mg/dL (65-115); Magnesium 2.2 mg/dL (1.7-2.3); Osmolality Calculated 284 mOsm/kg (285-295); Potassium 4.6 mmol/L (3.5-5.1); Sodium 136 mmol/L (136-145)
--- NOTE | 2024-08-05 07:30 | PC.NURSE ---
To labor contract analyst via bed.
--- NOTE | 2024-08-05 08:10 | W.PM.OPSUD ---
Surgery/Procedure H&P Update DATE OF PROCEDURE: August 05, 2024 DATE H&P PERFORMED: 07/31/24 H&P UPDATE INFORMATION: I have reviewed H&P completed within last 30 days, I have examined patient prior to procedure and No changes to prior documentation PREOP DIAGNOSIS: New onset of heart failure with moderately depressed left ventricular eject PRIMARY INDICATION FOR PROCEDURE: Multivessel coronary artery disease and the patient refused CABG, PLANNED PROCEDURE: Operation Date: 08/02/24 15:30 Proposed Procedures p Cardiac Catheterization(Not Applicable) - Jelani Reddy MD Operation Date: 08/05/24 06:00 Proposed Procedures p Percutaneous Coronary Intervention(Not Applicable) - Jelani Reddy MD PATIENT REASSESSED PRIOR TO SEDATION, WITH NO CHANGE NOTED: Yes PHYSICAL EXAM: alert, oriented x 3, clear to auscultation bilaterally, regular rate & rhythm and operative site marked AIRWAY EVAL/ANESTHESIA PLAN: ASA II, Risks, benefits & alternatives of sedation and/or procedure discussed and Patient agrees to continue as planned
--- NOTE | 2024-08-05 09:52 | PM.PROC ---
Procedure Note: Date of procedure: 08/05/24 Pre-procedure diagnosis: New onset of heart failure, multivessel coronary artery disease Post-procedure diagnosis: same Procedure: PCI to mid LAD with single drug-eluting stent postdilated with noncompliant balloon, PCI to mid diagonal branch postdilated with noncompliant balloon, PCI to mid obtuse marginal branch postdilated with noncompliant balloon. Excellent angiographic result with DUSTY-3 flow was noted at the end of the case without any complication. Plan Continue IV fluid 100 mL/h for 5 hours Continue aspirin statin Continue beta-davion Continue clopidogrel Load patient with 300 mg of clopidogrel today and 75 mg from tomorrow Coding Level of Care Code Acute Code for Chg Fwd
[2024-08-05] MEDS: PARoxetine 20 mg Tablet 10 MG PO (10:15)
[2024-08-05] MEDS: pantoprazole DR 40 mg Tablet PO (10:16)
[2024-08-05] MEDS: isosorbide mononitrate ER 30 mg Tablet PO (10:16)
[2024-08-05] MEDS: lisinopril 10 mg Tablet PO (10:16)
[2024-08-05] MEDS: sodium chloride 0.9% 1,000 ML 100 ML IV (10:17)
[2024-08-05] MEDS: nicotine 7 mg Patch 1 PATCH TRANSDERMA (11:50)
[2024-08-05 13:24] LABS: Partial Thromboplastin Time 84.8 SECONDS (23.9-36.7)
--- NOTE | 2024-08-05 13:26 | PC.SOCIAL ---
IMM Update pg 2 of IMM updated and reviewed w/ patient. Copy provided and copy dated, initialed and placed in chart.
[2024-08-05 14:48] LABS: Partial Thromboplastin Time 33.3 SECONDS (23.9-36.7)
--- NOTE | 2024-08-05 15:41 | PC.NURSE ---
Sheath pulled from left femoral artery. Tolerated well, no bleeding or hematoma noted. Small amount of bruising noted around insertion site. Dressing applied after manual pressure held x 15 minutes.
[2024-08-05] MEDS: heparin 5,000 unit/mL INJ 1 mL 5000 UNIT SUBCUT (20:22)
[2024-08-05] MEDS: amitriptyline 25 mg Tablet 12.5 MG PO (20:23)
[2024-08-05] MEDS: atorvastatin 40 mg Tablet 80 MG PO (20:23)
[2024-08-05] MEDS: ALPRAZolam 0.5 mg Tablet 0.25 MG PO (20:27)
[2024-08-06] VITALS (43 sets, daily range): BP systolic 93–159; BP diastolic 44–102; PULSE 67–91; RESP 1–34; TEMP 37.2–37.9; O2SAT 87–97
[2024-08-06 03:52] LABS: Basophils % 0.5 %; Eosinophils # 0.2 10^3/uL (0.0-0.8); Eosinophils % 3.9 %; Hematocrit 37.4 % (36-47); Lymphocytes # 1.5 10^3/uL (0.8-4.8); Lymphocytes % 25.7 %; Mean Corpuscular HGB Conc 29.7 g/dL (30-55); Mean Corpuscular Hemoglobin 27.3 pg (27-33); Mean Corpuscular Volume 92.1 fl (85-98); Mean Platelet Volume 10.2 fL (7.4-10.4); Monocytes # 0.7 10^3/uL (0.2-0.9); Monocytes % 11.8 %; Neutrophils # 3.42 10^3/uL (1.8-7.7); Neutrophils % 57.9 %; Nucleated Red Blood Cells % 0 %; Platelet Count 351 10^3/cmm (157-399); Red Blood Count 4.06 10^6/uL (3.85-5.65); Red Cell Distribution Width 13.7 % (12.1-15.1); White Blood Count 5.91 10^3/uL (3.29-11.43)
[2024-08-06 04:17] LABS: Anion Gap 12.5 (5-19); Blood Urea Nitrogen 9 mg/dL (8-23); Calcium 10.2 mg/dL (8.5-10.5); Carbon Dioxide 27 mmol/L (22-29); Chloride 104 mmol/L (98-107); Creatinine Clr Calc Pharmacy 56.3656; Glucose 93 mg/dL (65-115); Osmolality Calculated 286 mOsm/kg (285-295); Potassium 4.5 mmol/L (3.5-5.1); Sodium 139 mmol/L (136-145)
[2024-08-06] MEDS: heparin 5,000 unit/mL INJ 1 mL 5000 UNIT SUBCUT ×2 (08:29→20:07)
[2024-08-06] MEDS: nicotine 7 mg Patch 1 PATCH TRANSDERMA (08:29)
[2024-08-06] MEDS: azithromycin 250 mg Tablet 500 MG PO (08:29)
[2024-08-06] MEDS: lisinopril 10 mg Tablet PO (08:30)
[2024-08-06] MEDS: aspirin 81 mg EC Tablet PO (08:30)
[2024-08-06] MEDS: PARoxetine 20 mg Tablet 10 MG PO (08:30)
[2024-08-06] MEDS: clopidogrel 75 mg Tablet PO (08:30)
[2024-08-06] MEDS: pantoprazole DR 40 mg Tablet PO (08:30)
[2024-08-06] MEDS: isosorbide mononitrate ER 30 mg Tablet PO (08:30)
--- NOTE | 2024-08-06 11:27 | P.PN_ITS ---
<Statement entered by Jelani Reddy MD - 08/07/24 00:44> Patient was evaluated and cared for in conjunction with an advanced practice practitioner. I personally examined the patient and reviewed the chart and all pertinent data including imaging, telemetry, and laboratory results. I discussed the patient in detail with the advanced practice practitioner. Please see their note for complete H&P testing result and agreed upon plan of care for the patient. GENERAL: Patient is alert, awake and oriented x3. HEART: Regular S1 and S2. 2/6 systolic murmur, rub or gallop. LUNGS: Clear to auscultate bilaterally. CENTRAL NERVOUS SYSTEM: Grossly nonfocal. EXTREMITIES: Lower extremities with out edema bilaterally. Assessment and plan Moderately depressed left ventricle ejection fraction Moderate aortic valve stenosis Multivessel coronary artery disease status post PCI to LAD, diagonal and obtuse marginal Continue aspirin statin beta-davion and Plavix. Add lisinopril Subjective 2 Subjective: She has done well overnight, no chest pain or shortness of breath. No complications with left femoral cath site. She is able to discharge home from a cardiovascular perspective. She has moderate aortic stenosis, does not appear to be causing any volume overload or shortness of breath. We can monitor with echocardiogram on an outpatient basis. Continue aspirin, statin, beta-davion, Plavix. She is requesting nicotine patches for smoking cessation which we encouraged. Creatinine this morning 0.4. Follow-up in the cardiology clinic in 7 to 10 days, with cardiology [facility]. Vitals/I&O/Wt Last Vital Signs Temp 99.3 F 08/06/24 10:00 Pulse 79 08/06/24 10:00 Resp 27 H 08/06/24 10:00 BP 102/71 08/06/24 10:00 Pulse Ox 90 08/06/24 10:00 O2 Del Method Room Air 08/06/24 10:00 O2 Flow Rate 2 08/06/24 07:30 08/05/24 08/06/24 08/06/24 22:59 06:59 14:59 Intake Total 1972.5 / 2172.5 400 / 400 Output Total 1275 / 2275 1000 / 2275 Balance 697.5 / -102.5 -1000 / -102.5 400 / 400 Weight last 48 hrs Weight 181 lb 8 oz Weight 185 lb 3.013 oz Physical Exam 2 Const: COMMON NORMALS: no acute distress and patient oriented x3 GENERAL APPEARANCE: cooperative and comfortable ORIENTATION/CONSCIOUSNESS: Yes awake, Yes oriented to person, Yes oriented to place and Yes oriented to time Chest: COMMONS NORMALS: normal inspection of the chest and normal palpation of entire chest wall CHEST: Yes Symmetrical chest wall rise Resp: COMMON NORMALS: normal respiratory effort, No retractions, No use of accessory muscles and clear to auscultation bilaterally EFFORT & INSPECTION: Yes symmetric chest movement AUSCULTATION: clear to auscultation bilaterally Cardio: COMMON NORMALS: regular rate, regular rhythm, S1 normal heart sound present, S2 normal heart sound present, No gallops present (Cardio), No clicks present (Cardio), No murmurs present (Cardio) and No rub (Cardio) RATE: r egular rate RHYTHM: regular rhythm HEART SOUNDS: S1 normal heart sound present and S2 normal heart sound present PERIPHERAL PULSES: radial pulses present Extremity: COMMON NORMALS: no pedal edema Neuro: COMMON NORMALS: patient oriented x3 and moves all extremities S ENSORIUM/ORIENTATION: Yes oriented to person, Yes oriented to place and Yes oriented to time Urinary Catheter Management: Kong: Cath Placed During This Visit: yes, but has since been removed by the nurse Reason for Continuing Indwelling Catheter: Accurate Measurement of Urinary Output in Critically Ill Patients Urinary Catheter Date of Insertion: 07/31/24 Date Urinary Catheter Removed: 08/06/24 Time Urinary Catheter Discontinued: 05:45 Data 08/06/24 02:35 08/06/24 02:35 Micro: Microbiology 08/01/24 03:15 Blood Culture - Final Blood NO GROWTH AFTER 5 DAYS 08/01/24 03:19 Blood Culture - Final Blood NO GROWTH AFTER 5 DAYS A&P Assessment and plan (1) CAD (coronary artery disease): (2) Moderate aortic stenosis: (3) Smoker: (4) New onset of congestive heart failure: Plan She is status post PCI of the mid LAD, mid diagonal, mid OM. No recurrence of chest pain, shortness of breath. LVEF before PCI was 44%, continue aspirin, atorvastatin, lisinopril 10 mg daily, isosorbide mononitrate 30 mg daily, Plavix. She can continue Lasix 20 mg daily as needed. Okay to DC home if okay with hospitalist. Follow-up in cardiology clinic with [facility] in 7 to 10 days. Attestations 2 Medical Necessity Statement*: Per hospitalist Coding Level of Care Code Acute Code for Chg Fwd Diagnoses CAD (coronary artery disease) I25.10 Moderate aortic stenosis I35.0 Smoker F17.200 New onset of congestive heart failure I50.9
[2024-08-06 14:24] LABS: Adenovirus Not Detected (NOT DETECT); Chlamydia Pneumoniae Not Detected (NOT DETECT); Coronavirus 229E,HKU1,NL63,OC4 Not Detected (NOT DETECT); Human Metapneumovirus Not Detected (NOT DETECT); Human Rhinovirus/Enterovirus Not Detected (NOT DETECT); Influenza A Not Detected (NOT DETECT); Influenza A H1 Not Detected (NOT DETECT); Influenza A H1-2009 Not Detected (NOT DETECT); Influenza A H3 Not Detected (NOT DETECT); Influenza B Not Detected (NOT DETECT); Mycoplasma Pneumoniae Not Detected (NOT DETECT); Parainfluenza Virus Type 1 Not Detected (NOT DETECT); Parainfluenza Virus Type 2 Not Detected (NOT DETECT); Parainfluenza Virus Type 3 Not Detected (NOT DETECT); Parainfluenza Virus Type 4 Not Detected (NOT DETECT); Respiratory Syncytial Virus A Not Detected (NOT DETECT); Respiratory Syncytial Virus B Not Detected (NOT DETECT); SARS-COV-2 Not Detected (NOT DETECT)
--- NOTE | 2024-08-06 14:49 | PC.NURSE ---
Son Dilma Esquivel, called. Update provided: Heart goel is is doing great. She has the sniffles and had a temp of 100.2 this am, Respiratory panel done, all negative. Physician stated she needs to stay so we can figure out where the fever came from. Son stated sister (the patient's) went to the doctors today and tested positive for Flu A.
--- NOTE | 2024-08-06 15:27 | CTR_ITS ---
PROCEDURE INFORMATION: Exam: CT Chest Without Contrast; Diagnostic Exam date and time: 08/06/2024 5:57 PM Age: 79 years old Clinical indication: Fever; Prior surgery; Surgery date: 6+ months; Surgery type: RT shoulder; Additional info: Fever, diarrhea, fever source evaluation. Persistent low grade fever x 5 TECHNIQUE: Imaging protocol: Diagnostic computed tomography of the chest without contrast. Radiation optimization: All CT scans at this facility use at least one of these dose optimization techniques: automated exposure control; mA and/or kV adjustment per patient size (includes targeted exams where dose is matched to clinical indication); or iterative reconstruction. COMPARISON: CT angio chest PE protcl [id number] 07/31/2024 4:13 PM RADIATION DOSE METRICS: Total DLP (mGy-cm): 844.93 FINDINGS: Lungs: Improving atelectasis and/or consolidations in the lingula and right middle lobe. Decreased bilateral posterior lower lobe atelectasis. No clemente consolidation. No pulmonary mass or suspicious pulmonary nodule. Left anterior upper lobe calcified granuloma. Pleural spaces: Trace bilateral pleural effusions, decreased compared to prior study. No pneumothorax. Heart: Heart size is within normal limits. There is no pericardial effusion or pericardial thickening. Coronary arteries: Severe coronary artery calcification. Lymph nodes: Prominent mediastinal lymph nodes, stable to slightly decreased in size compared to recent CT chest. No enlarged axillary lymph nodes. The dion are not well assessed. Calcified left hilar lymph node. Vasculature: Atherosclerotic calcifications of the aorta are present. No aneurysm is identified. Bones/joints: No acute osseous abnormalities are seen. Soft tissues: The soft tissues are within normal limits. PROCEDURE INFORMATION: Exam: CT Abdomen And Pelvis Without Contrast Exam date and time: 08/06/2024 5:57 PM Age: 79 years old Clinical indication: Fever; Prior surgery; Surgery date: 6+ months; Surgery type: RT shoulder; Additional info: Fever, diarrhea, fever source evaluation. Persistent low grade fever x 5 TECHNIQUE: Imaging protocol: Computed tomography of the abdomen and pelvis without contrast. Radiation optimization: All CT scans at this facility use at least one of these dose optimization techniques: automated exposure control; mA and/or kV adjustment per patient size (includes targeted exams where dose is matched to clinical indication); or iterative reconstruction. COMPARISON: CT angio chest PE protcl [id number] 07/31/2024 4:13 PM RADIATION DOSE METRICS: Total DLP (mGy-cm): 844.93 FINDINGS: Liver: There are few hepatic granulomata. The liver is otherwise normal. Gallbladder and biliary ducts: The gallbladder is normal. There is no ductal dilatation. Pancreas: The pancreas is normal. Spleen: Calcified splenic granulomata are noted. The spleen is otherwise normal. Adrenal glands: The adrenal glands are normal. Kidneys and ureters: No renal calcifications are identified. There is no hydronephrosis. Stomach and bowel: Mild colonic diverticulosis without diverticulitis. Appendix: A normal appendix is identified. Intraperitoneal space: No inflammatory changes are identified. There is no free fluid or fluid collection seen. There is no pneumoperitoneum. Vasculature: Atherosclerotic calcifications of the aorta are present. 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 No aortic aneurysm identified. Increased soft tissue density in the subcutaneous fat overlying the left groin possibly related to recent vascular procedure. Lymph nodes: No enlarged lymph nodes are identified. There are few calcified mesenteric lymph nodes. Urinary bladder: The bladder is decompressed and collapsed. No abnormality identified. Reproductive: The uterus is present. Bones/joints: No acute osseous abnormalities are seen. Soft tissues: Small periumbilical hernia containing only fat. CT/[place] [id number] IMPRESSION: 1. Trace bilateral pleural effusions, decreased compared to prior study. 2. Improved aeration of bibasilar atelectasis and/or consolidations. IMPRESSION: 1. No acute intra-abdominal or pelvic process. 2. 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 3. Increased soft tissue density in the subcutaneous fat overlying the left groin possibly related to recent vascular procedure. Correlate with history and physical exam. 4. Other nonemergent findings above.
[2024-08-06 17:30] LABS: Bilirubin Urine Negative (Negative); Blood Urine 2+ (Negative); Glucose Urine UA Negative (Normal); Ketones Urine Negative (Negative); Leukocyte Esterase Urine 2+ (Negative); Nitrate Urine Negative (Negative); Protein Urine Trace (Negative); Specific Gravity, Urine 1.021 (1.005-1.030); Urine Appearance Cloudy (CLEAR); Urine Color Yellow (Yellow); Urobilinogen Urine 0.2 mg/dL (Negative); pH Urine 5.5 (5-7)
[2024-08-06 17:33] LABS: Add Urine Microscopic? YES; Bacteria Urine 2+ /hpf; Hyaline Casts Urine 7.01 /lpf; WBC Urine 21-50 /hpf (0-5)
--- NOTE | 2024-08-06 17:42 | P.PN_ITS ---
Subjective 2 Subjective: Patient is status post left heart cath yesterday and placement of 3 drug-eluting stents. She tolerated the procedure well overall. Feels much better today and wishes to go home, however noted to have a fever of 100.2 Fahrenheit. Additionally has some URI symptoms with a runny nose. Her sister recently tested positive for influenza A Medications: Reviewed: Yes Vitals/I&O/Wt Last Vital Signs Temp 99.2 F 08/06/24 13:00 Pulse 70 08/06/24 16:00 Resp 26 H 08/06/24 16:00 BP 146/75 08/06/24 16:00 Pulse Ox 97 08/06/24 16:00 O2 Del Method Room Air 08/06/24 16:00 O2 Flow Rate 2 08/06/24 07:30 08/06/24 08/06/24 08/06/24 06:59 14:59 22:59 Intake Total 800 / 800 Output Total 1000 / 2275 Balance -1000 / -102.5 800 / 800 Weight last 48 hrs Weight 82.327 kg Weight 84 kg Physical Exam 2 Narrative: General: No acute distress, AO x3 HEENT: PERRLA, pupils bilaterally equal and reactive, pallors not present Chest: Normal vesicular breath sounds, no added sounds, equal good air entry bilaterally CVS: S1-S2 regular, no murmurs, no tachycardia, no gallops, no rubs Abdomen: Soft, nontender, no organomegaly, bowel sounds present Neuro: No focal deficits, no facial deformity, AO x3, power 5/5 in all limbs Urinary Catheter Management: Kong: Cath Placed During This Visit: yes, but has since been removed by the nurse Reason for Continuing Indwelling Catheter: Accurate Measurement of Urinary Output in Critically Ill Patients Urinary Catheter Date of Insertion: 07/31/24 Date Urinary Catheter Removed: 08/06/24 Time Urinary Catheter Discontinued: 05:45 Data 08/06/24 02:35 08/06/24 02:35 Micro: Microbiology 08/06/24 16:10 Blood Culture - Preliminary Blood SPECIMEN COLLECTED 08/06/24 16:13 Blood Culture - Preliminary Blood SPECIMEN COLLECTED 08/01/24 03:15 Blood Culture - Final Blood NO GROWTH AFTER 5 DAYS 08/01/24 03:19 Blood Culture - Final Blood NO GROWTH AFTER 5 DAYS A&P Assessment and plan (1) Hypertension: Qualifiers: Hypertension type: essential hypertension Qualified Code(s): I10 - Essential (primary) hypertension (2) CHF (congestive heart failure): Qualifiers: Heart failure chronicity: acute Heart failure type: unspecified Qualified Code(s): I50.9 - Heart failure, unspecified (3) Supplemental oxygen dependent: (4) New onset of congestive heart failure: (5) Pulmonary edema: (6) Smoker: (7) Left bundle branch block: (8) Goals of care, counseling/discussion: (9) Noncompliance: (10) Chest pressure: (11) Systolic murmur: Plan #New onset congestive heart failure most likely systolic #Pulmonary edema, new onset #New left bundle branch block or old, do not have an old EKG to compare to #Hypertensive urgency #Anxiety #Noncompliance to medical treatment and medications #Smoker ? Will provide 7 g nicotine patches per patient's request at this time ? Lasix 60 IV given in ER. Will place on Lasix 40 IV twice daily ? First troponin 15, second and subsequent 6-hour troponin pending at this time ? EKG showed left bundle branch block ? Echo ordered ? Patient having chest pressure. Will place on nitro drip. ? Discussed with cotton washer over the phone. Consult Dr. Reddy ? N.p.o. at midnight in case of angiogram being planned for the morning ? Patient will need diuresis and further workup for new onset congestive heart failure ? Will order Xanax 0.25 twice daily as needed for anxiety ? Check hemoglobin A1c, lipid profile, TSH ? Wean off oxygen as able ? Place Kong catheter for accurate output ? Due to active heart failure I will hold off on adding a beta-davion at this time. ? Placed on aspirin and Plavix ? In case delta troponin is positive at 6 hours patient will need to be anticoagulated at that time. Full code DVT prophylaxis: Heparin SQ twice daily Patient would like to appoint her sister and 2 children to be DPOA. plate put in worker to see her in AM. Her has . 08/01/2024 Continue on nicotine patch await echo continue lasix 40 iv BID - continue to supplement potassium - cardiology following a1c 5.1 lipid profile reviewed, pt on atorvastatin 80 tsh pending - wean off o2 as able - continue aspirin plavix continue xanax bid prn may transfer to [facility] 08/02/2024 -Patient placed on Lasix 40 IV 3 times daily ? A1c 5.1. ? TSH pending ? Continue aspirin Plavix. ? Plan for coronary angiogram today. ? Echo reviewed. EF 44% with global hypokinesia grade 1 diastolic dysfunction. ? Cardiology following, appreciate recommendations. 08/03/2024 Hold further Lasix at this time. Patient getting alkalotic. ? She is euvolemic at this time. On room air now. Lungs clear to auscultation. ? Status post coronary angiogram. Echo reviewed. ? Plan for PCI Monday for staged procedure. 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 ? Continue to monitor at this time. ? Continue atorvastatin aspirin Plavix. 08/04/2024 ?Hold further Lasix at this time patient euvolemic ? Patient on 2 L nasal cannula ?? Plan for PCI Monday for staged procedure. 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 ? Continue to monitor ? N.p.o. at midnight. 08/05/24: Chart reviewed. Patient admitted on 07/31/23 with c/o shortness of breath. Found to have new LBBB, 02 requirement of 5 lpm. CTA negative for PE. Showing B/L GGOs and Pleural effusions rasiing concern for CHF. Echocardiogram with EF 44% , gr 1 diatsolic dysfunction. May have underlying COPD given h/o chronic smoking, doesnt appear to have a formal diagnosis of the same. Undergoing diuresis with Lasix, which is now on hold. Currently euvolemic. Underwent LHC on 08/02 which showed multivessel disease- given option for CABG vs multivessel PCI- patient has opted for the latter- planned for procedure today. T max 99.4-99.8 this admission. Negative PCR for COVID, Flu and RSV upon admission. rest N/A. Completed 5 days of presumptive Ceftriaxone treatment For CAP 07/31-08/04. D/c today. Add atypical coverage with azithromycin 500mg daily x 3 days. No leukocytosis, 02 requirement improving. D/c orders for home dose ASA 625 mg BID as currently also on ASA 81mg and Plavix 75mg daily. LAst received 625 mg ASA dose on 08/03. Renew Hydrocodone/APAP for pain. Continue protonix for GI ppx. August 06, 2024 Status post left heart cath yesterday with placement of 3 stents. Doing well procedure goel. No chest pain. Feels well. Was planned to be discharged today however had a Tmax of 100.2 Fahrenheit. Initially concern for acute respiratory viral illness therefore underwent respiratory viral panel, this is negative. Patient has been having low-grade temperature between 99.2-99.8 during this hospital course even previously. She has received an empiric course of ceftriaxone between July 31 to August 04 and also is currently on azithromycin. She reports 2 episodes of diarrhea today, will check C. difficile. Check CT of the chest abdomen and pelvis to evaluate for any underlying other sources of fever such as pneumonia not evident on a chest x-ray, possible colitis. Check UA, recently had a urine catheter until yesterday, potentially could have a UTI. Repeat chest x-ray to assess for any interim changes. Transfer out of ICU. No change in antibiotics for now. Attestations 2 Medical Necessity Statement*: Fever today, needs further evaluation prior to discharge home given recent cardiac event. Coding Level of Care Code Acute Code for Chg Fwd Straight Forward/Low MDM includes number and complexity of problems actively addressed during encounter, amount and/or complexity of data reviewed/ordered and described risk of complication, morbidity or mortality of management as documented Diagnoses Essential hypertension I10 Hypertension type: essential hypertension CHF (congestive heart failure) I50.9 Heart failure chronicity: acute Heart failure type: unspecified Supplemental oxygen dependent Z99.81 New onset of congestive heart failure I50.9 Pulmonary edema J81.1 Smoker F17.200 Left bundle branch block I44.7 Goals of care, counseling/discussion Z71.89 Noncompliance Z91.199 Chest pressure R07.89 Systolic murmur R01.1
[2024-08-06 18:02] LABS: UA Slide Review UA Slide Review Perf
--- NOTE | 2024-08-06 19:25 | PC.NURSE ---
Shift summary: Pt rested in bed most of shift due to being cold. She was able to sit up in chair, and amb back and forth to restroom. Sinus rhythm noted on monitor. Heat rhythm measured out as first degree block this shift. She is on room air. Pt does has sniffles and a fever of 100.2 this am Resp panel negative. Lungs auscultated clear. She had an adequate appetite. She had a couple bouts a diarrhea this am.
[2024-08-06] MEDS: amitriptyline 25 mg Tablet 12.5 MG PO (20:07)
[2024-08-06] MEDS: atorvastatin 40 mg Tablet 80 MG PO (20:09)
[2024-08-06] MEDS: ALPRAZolam 0.5 mg Tablet 0.25 MG PO (20:09)
[2024-08-07] VITALS (29 sets, daily range): BP systolic 103–155; BP diastolic 42–91; PULSE 67–104; RESP 14–28; TEMP 36.6–37.2; O2SAT 85–97; BMI 32.2
[2024-08-07] MEDS: isosorbide mononitrate ER 30 mg Tablet PO (08:46)
[2024-08-07] MEDS: lisinopril 10 mg Tablet PO (08:46)
[2024-08-07] MEDS: PARoxetine 20 mg Tablet 10 MG PO (08:46)
[2024-08-07] MEDS: azithromycin 250 mg Tablet 500 MG PO (08:46)
[2024-08-07] MEDS: clopidogrel 75 mg Tablet PO (08:46)
[2024-08-07] MEDS: aspirin 81 mg EC Tablet PO (08:47)
[2024-08-07] MEDS: heparin 5,000 unit/mL INJ 1 mL 5000 UNIT SUBCUT (08:47)
[2024-08-07] MEDS: pantoprazole DR 40 mg Tablet PO (08:47)
[2024-08-07] MEDS: nicotine 7 mg Patch 1 PATCH TRANSDERMA (08:48)
--- NOTE | 2024-08-07 09:59 | P.PN_ITS ---
<Statement entered by Jelani Reddy MD - 08/17/24 17:53> Patient was evaluated and cared for in conjunction with an advanced practice practitioner. I personally not examined the patient but reviewed the chart and all pertinent data including imaging, telemetry, and laboratory results. I discussed the patient in detail with the advanced practice practitioner. Please see their note for complete H&P testing result and agreed upon plan of care for the patient Subjective 2 Subjective: She became febrile yesterday, UTI noted and treated. Has done well overnight from a cardiovascular perspective. Vitals/I&O/Wt Last Vital Signs Temp 98.4 F 08/07/24 08:00 Pulse 77 08/07/24 09:45 Resp 18 08/07/24 09:45 BP 138/79 08/07/24 06:00 Pulse Ox 92 08/07/24 09:45 O2 Del Method Nasal Cannula 08/07/24 09:45 O2 Flow Rate 2 08/07/24 09:45 08/06/24 08/07/24 08/07/24 22:59 06:59 14:59 Intake Total 300 / 1100 0 / 1100 240 / 240 Balance 300 / 1100 0 / 1100 240 / 240 Weight last 48 hrs Weight 176 lb 5.917 oz Weight 181 lb 8 oz Physical Exam 2 Const: COMMON NORMALS: no acute distress and patient oriented x3 GENERAL APPEARANCE: cooperative and comfortable ORIENTATION/CONSCIOUSNESS: Yes awake, Yes oriented to person, Yes oriented to place and Yes oriented to time Chest: COMMONS NORMALS: normal inspection of the chest and normal palpation of entire chest wall CHEST: Yes Symmetrical chest wall rise Resp: COMMON NORMALS: normal respiratory effort, No retractions, No use of accessory muscles and clear to auscultation bilaterally EFFORT & INSPECTION: Yes symmetric chest movement AUSCULTATION: clear to auscultation bilaterally Cardio: COMMON NORMALS: regular rate, regular rhythm, S1 normal heart sound present, S2 normal heart sound present, No gallops present (Cardio), No clicks present (Cardio) and No rub (Cardio) RATE: regular rate RHYTHM: regular rhythm HEART SOUNDS: S1 normal heart sound present, S2 normal heart sound present and Murmur heart sound present systolic Intensity: II/ PERIPHERAL PULSES: radial pulses present Extremity: COMMON NORMALS: no pedal edema Neuro: COMMON NORMALS: patient oriented x3 and moves all extremities S ENSORIUM/ORIENTATION: Yes oriented to person, Yes oriented to place and Yes oriented to time Urinary Catheter Management: Kong: Cath Placed During This Visit: yes, but has since been removed by the nurse Reason for Continuing Indwelling Catheter: Accurate Measurement of Urinary Output in Critically Ill Patients Urinary Catheter Date of Insertion: 07/31/24 Date Urinary Catheter Removed: 08/06/24 Time Urinary Catheter Discontinued: 05:45 Data 08/06/24 02:35 08/06/24 02:35 Micro: Microbiology 08/06/24 16:10 Blood Culture - Preliminary Blood SPECIMEN COLLECTED 08/06/24 16:13 Blood Culture - Preliminary Blood SPECIMEN COLLECTED A&P Assessment and plan (1) Moderate aortic stenosis: (2) CAD (coronary artery disease): (3) CHF (congestive heart failure): Qualifiers: Heart failure chronicity: acute Heart failure type: unspecified Qualified Code(s): I50.9 - Heart failure, unspecified (4) Hypertension: Qualifiers: Hypertension type: essential hypertension Qualified Code(s): I10 - Essential (primary) hypertension Plan Status post PCI of the mid LAD, mid diagonal and mid OM. No chest pain or shortness of breath overnight. Continue aspirin, atorvastatin, lisinopril, isosorbide mononitrate and Plavix. May discharge home when acceptable hospitalist. Attestations 2 Medical Necessity Statement*: Per hospitalist Coding Level of Care Code Acute Code for [facility] Fwd Diagnoses Moderate aortic stenosis I35.0 CAD (coronary artery disease) I25.10 CHF (congestive heart failure) I50.9 Heart failure chronicity: acute Heart failure type: unspecified Essential hypertension I10 Hypertension type: essential hypertension
--- NOTE | 2024-08-07 10:22 | PM.DCS ---
Discharge Providers Date of Admission: 07/31/24 18:28 Date of Discharge: August 07, 2024 Attending Provider at Admission: Payal Smith MD Attending Provider at Discharge: Naheed Stinson MD Primary Care Provider: KATEY Bravo Diagnoses at Discharge Discharge Diagnosis (1) Moderate aortic stenosis: Status: Acute (2) CAD (coronary artery disease): Status: Acute (3) CHF (congestive heart failure): Status: Acute Qualifiers: Heart failure chronicity: acute Heart failure type: unspecified Qualified Code(s): I50.9 - Heart failure, unspecified (4) Hypertension: Status: Acute Qualifiers: Hypertension type: essential hypertension Qualified Code(s): I10 - Essential (primary) hypertension (5) NSTEMI (non-ST elevated myocardial infarction): Status: Acute Reason for Visit Reason for Visit: Panic Attack Hospital Course Hospital Course 79-year-old lady admitted on 07/31/23 with c/o shortness of breath. Found to have new LBBB, 02 requirement of 5 lpm. CTA negative for PE. Showing B/L GGOs and Pleural effusions rasiing concern for CHF. Echocardiogram with EF 44% , gr 1 diatsolic dysfunction. May have underlying COPD given h/o chronic smoking, doesn't appear to have a formal diagnosis of the same. Also possible to have sleep apnea as was noted to have some drops in her oxygen saturation to 86 to 89% intermittently during sleep. She underwent diuresis with IV Lasix Lasix. Currently euvolemic. Underwent LHC on 08/02 which showed multivessel disease- given option for CABG vs multivessel PCI-of which patient opted for the latter. On August 05, 2024 she underwent left heart cath with placement of 3 stents. T max 99.4-100.2 this admission. Negative PCR for COVID, Flu and RSV upon admission, negative respiratory viral panel on August 06, 2023. She does have some URI symptoms currently with a mild rhinorrhea. Possible that patient may be experiencing acute viral illness with a virus other than that is testable on her current panel. She had presumptively been treated for community-acquired pneumonia with ceftriaxone and azithromycin during this admission. CT of the chest abdomen and pelvis remained without any obvious source of infection. There was no underlying consolidation. CT of the abdomen and pelvis without signs of colitis or diverticulitis. Patient had 2 episodes of diarrhea on August 06 which have since resolved. Possibly may have a UTI given positive leukocyte esterase and elevated WBCs on UA from August 06, 2024 and having had a Kong catheter recently, however tough to interpret as it does not appear to be a clean-catch specimen with 11-20 epithelial cells. UA upon admission was negative for UTI. Patient is being discharged with empiric 5-day course of levofloxacin to cover for this possibility while cultures remain pending. Recommended to follow-up pending urine and blood cultures with primary care physician in the next 4 to 7 days after discharge. Her home dose of aspirin 625 mg BID was discontinued as currently patient will be on ASA 81mg and Plavix 75mg daily. Home oxygen evaluation was completed prior to discharge, patient did not need supplemental oxygen. Recommended to consider sleep study as outpatient due to suspicion for sleep apnea. Physical Exam Narrative: General: No acute distress, AO x3 HEENT: PERRLA, pupils bilaterally equal and reactive, pallors not present Chest: Normal vesicular breath sounds, no added sounds, equal good air entry bilaterally CVS: S1-S2 regular, no murmurs, no tachycardia, no gallops, no rubs Abdomen: Soft, nontender, no organomegaly, bowel sounds present Neuro: No focal deficits, no facial deformity, AO x3, power 5/5 in all limbs Urinary Catheter Management: Kong: Cath Placed During This Visit: yes, but has since been removed by the nurse Reason for Continuing Indwelling Catheter: Accurate Measurement of Urinary Output in Critically Ill Patients Urinary Catheter Date of Insertion: 07/31/24 Date Urinary Catheter Removed: 08/06/24 Time Urinary Catheter Discontinued: 05:45 Discharge Data Studies Completed and Pending Completed Studies During Hospitalization Category Date Time Status CT chest abdomen pelvis [[place] [id number] Cat Scan 08/06/24 15:27 Completed ] Routine CTA chest [CT angio chest PE protcl [id number]] Stat Cat Scan 07/31/24 13:50 Completed XR chest 1V portable [id number] Routine Exams 08/04/24 10:31 Completed XR chest 1V portable [id number] Stat Exams 07/31/24 13:12 Completed CV. 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 No evidence of pulmonary embolism. 2. Moderate cardiomegaly. 3. Diffuse ill-defined ground-glass opacities likely represent moderate pulmonary edema. Areas of mosaic attenuation could also represent air trapping from chronic small airways disease. 4. Moderate bilateral pleural effusions with adjacent relaxation atelectasis. Superimposed infection not entirely excluded. 5. Dilated main pulmonary artery can be seen with pulmonary hypertension. 6. Reflux of contrast into the IVC and hepatic veins is compatible with tricuspid regurgitation and/or right heart failure. Chest X-Ray 08/04/24 10:31 IMPRESSION: Decrease in the pulmonary edema, bilateral pleural effusions and bilateral lower lobe atelectasis. Chest/Abdomen/Pelvis CT 08/06/24 15:27 IMPRESSION: 1. Trace bilateral pleural effusions, decreased compared to prior study. 2. Improved aeration of bibasilar atelectasis and/or consolidations. IMPRESSION: 1. No acute intra-abdominal or pelvic process. 2. 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 3. Increased soft tissue density in the subcutaneous fat overlying the left groin possibly related to recent vascular procedure. Correlate with history and physical exam. 4. Other nonemergent findings above. Laboratory Results WBC 5.91 10^3/uL (3.29-11.43) 08/06/24 02:35 RBC 4.06 10^6/uL (3.85-5.65) 08/06/24 02:35 Hgb 11.10 g/dL (11.27-16.99) L 08/06/24 02:35 Hct 37.4 % (36-47) 08/06/24 02:35 MCV 92.1 fl (85-98) 08/06/24 02:35 MCH 27.3 pg (27-33) 08/06/24 02:35 MCHC 29.7 g/dL (30-55) L 08/06/24 02:35 RDW 13.7 % (12.1-15.1) 08/06/24 02:35 Plt Count 351 10^3/cmm (157-399) 08/06/24 02:35 MPV 10.2 fL (7.4-10.4) 08/06/24 02:35 Neut % (Auto) 57.9 % 08/06/24 02:35 Lymph % (Auto) 25.7 % 08/06/24 02:35 [place] % (Auto) 11.8 % 08/06/24 02:35 Eos % (Auto) 3.9 % 08/06/24 02:35 Baso % (Auto) 0.5 % 08/06/24 02:35 Neut # (Auto) 3.42 10^3/uL (1.8-7.7) 08/06/24 02:35 Lymph # (Auto) 1.5 10^3/uL (0.8-4.8) 08/06/24 02:35 [place] # (Auto) 0.7 10^3/uL (0.2-0.9) 08/06/24 02:35 Eos # (Auto) 0.2 10^3/uL (0.0-0.8) 08/06/24 02:35 Baso # (Auto) 0.0 10^3/uL (0.0-0.1) 08/06/24 02:35 Nucleated RBC % (auto) 0 % 08/06/24 02:35 Nucleated RBCs # 0.0 /100WBC 08/06/24 02:35 APTT 33.3 SECONDS (23.9-36.7) D 08/05/24 14:17 D-Dimer 0.92 ug/mLFEU (0-0.59) H 07/31/24 13:25 Specimen Type Arterial 07/31/24 13:14 Sample Site Radial, left 07/31/24 13:14 ABG pH 7.37 (7.35-7.45) 07/31/24 13:14 ABG pCO2 43.8 mmHg (35-45) 07/31/24 13:14 ABG pO2 59.5 mmHg (80.0-100.0) L 07/31/24 13:14 ABG HCO3 25.5 mmol/L (22-26) 07/31/24 13:14 ABG O2 Saturation 88.9 07/31/24 13:14 ABG Base Excess 0.0 mmol/L (-2.0-2.0) 07/31/24 13:14 Silas Test Pos 07/31/24 13:14 A-a O2 Gradient 5.0 mmHg (5-10) 07/31/24 13:14 Hematocrit 39.3 % (37-47) 07/31/24 13:14 Hgb O2 Saturation 85.3 % (95-100) L 07/31/24 13:14 Carboxyhemoglobin 3.0 %THgb (0.4-20.1) 07/31/24 13:14 Methemoglobin 1.1 % (0.4-1.5) 07/31/24 13:14 Total Hemoglobin 12.8 g/dL (12-16) 07/31/24 13:14 Sodium 139.0 mmol/L (131-143) 07/31/24 13:14 Potassium 3.8 mmol/L (3.5-5.0) 07/31/24 13:14 Glucose 146.0 mg/dL (70-115) H 07/31/24 13:14 Ionized Calcium 1.4 mmol/L (1.1-1.4) 07/31/24 13:14 O2 Delivery Device Nc 07/31/24 13:14 O2 Liters/Min 4.0 % 07/31/24 13:14 [employer] Supervisor ID [place] 07/31/24 13:14 Sodium 139 mmol/L (136-145) 08/06/24 02:35 Potassium 4.5 mmol/L (3.5-5.1) 08/06/24 02:35 Chloride 104 mmol/L (98-107) 08/06/24 02:35 Carbon Dioxide 27 mmol/L (22-29) 08/06/24 02:35 Anion Gap 12.5 (5-19) 08/06/24 02:35 BUN 9 mg/dL (8-23) 08/06/24 02:35 Creatinine 0.4 mg/dL (0.5-0.9) L 08/06/24 02:35 GFR Calculation Not Reportable 08/06/24 02:35 Glucose 93 mg/dL (65-115) 08/06/24 02:35 Estimat Average Glucose 111 07/31/24 13:25 Hemoglobin A1c 5.5 % (4.0-6.0) 07/31/24 13:25 Calculated Osmolality 286 mOsm/kg (285-295) 08/06/24 02:35 Calcium 10.2 mg/dL (8.5-10.5) 08/06/24 02:35 Magnesium 2.2 mg/dL (1.7-2.3) 08/05/24 05:37 Total Bilirubin 0.4 mg/dL (0.15-1.2) 08/01/24 03:19 AST 20 U/L (0-32) 08/01/24 03:19 ALT 30 U/L (0-33) 08/01/24 03:19 Alkaline Phosphatase 114 U/L (35-105) H 08/01/24 03:19 Troponin T Baseline 15 ng/L (0-10) H 07/31/24 13:25 Troponin T 120 Minute 17.22 ng/L (0-10) H 07/31/24 15:01 Delta Troponin T 2.22 ABS# (0-10) 07/31/24 15:01 Troponin T Hi Sens 6Hr 19.01 ng/L (0-10) H 07/31/24 20:22 Troponin T Hi Sens 6Hr Delta 4.01 ng/L (0-12) 07/31/24 20:22 NT-Pro-B Natriuret Pep 5697 pg/mL (0-450) H 07/31/24 13:35 Total Protein 6.8 g/dL (6.6-8.7) 08/01/24 03:19 Albumin 3.8 g/dL (3.5-5.2) 08/01/24 03:19 Globulin 3.0 g/dL (1.3-4.6) 08/01/24 03:19 Triglycerides 86 mg/dL (0-150) 07/31/24 13:25 Cholesterol 205 mg/dL (0-200) H 07/31/24 13:25 LDL Cholesterol, Calc 133 mg/dL (50-129) H 07/31/24 13:25 HDL Cholesterol 55 mg/dL (60-100) L 07/31/24 13:25 LDL/HDL Ratio 2.42 RATIO (0.00-3.22) 07/31/24 13:25 Cholesterol/HDL Ratio 3.73 mg/dL (0.0-4.40) 07/31/24 13:25 Procalcitonin 0.04 ng/mL (0-0.5) 07/31/24 13:25 TSH 1.13 uIU/mL (0.27-4.20) 07/31/24 13:25 Urine Color Yellow (Yellow) 08/06/24 17:20 Urine Appearance Cloudy (CLEAR) A 08/06/24 17:20 Urine pH 5.5 (5-7) 08/06/24 17:20 Ur Specific [place] 1.021 (1.005-1.030) 08/06/24 17:20 Urine Protein Trace (Negative) A 08/06/24 17:20 Urine Glucose (UA) Negative (Normal) 08/06/24 17:20 Urine Ketones Negative (Negative) 08/06/24 17:20 Urine Blood 2+ (Negative) A 08/06/24 17:20 Urine Nitrate Negative (Negative) 08/06/24 17:20 Urine Bilirubin Negative (Negative) 08/06/24 17:20 Urine Urobilinogen 0.2 mg/dL (Negative) 08/06/24 17:20 Ur Leukocyte Esterase 2+ (Negative) A 08/06/24 17:20 Urine RBC 6-10 /hpf (0-2) 08/06/24 17:20 Urine WBC 21-50 /hpf (0-5) H 08/06/24 17:20 Ur Squamous Epith Cells 11-20 /hpf (0-5) H 08/06/24 17:20 Amorphous Sediment Not Reportable 08/06/24 17:20 Urine Bacteria 2+ /hpf (NONE) H 08/06/24 17:20 Hyaline Casts 7.01 /lpf 08/06/24 17:20 Adenovirus (PCR) Not detected (NOT DETECT) 08/06/24 11:35 C. pneumoniae DNA (PCR) Not detected (NOT DETECT) 08/06/24 11:35 Coronavirus (PCR) Negative (Negative) 07/31/24 13:41 Coronavirus 229E (PCR) Not detected (NOT DETECT) 08/06/24 11:35 Human Metapneumovir PCR Not detected (NOT DETECT) 08/06/24 11:35 Influenza A (H1) PCR Not detected (NOT DETECT) 08/06/24 11:35 Influenza A (PCR) Negative (Negative) 07/31/24 13:41 Influ A (H1/09) PCR Not detected (NOT DETECT) 08/06/24 11:35 Influenza A (H3) PCR Not detected (NOT DETECT) 08/06/24 11:35 Influenza Type A (PCR) Not detected (NOT DETECT) 08/06/24 11:35 Influenza Type B (PCR) Not detected (NOT DETECT) 08/06/24 11:35 M. pneumoniae (PCR) Not detected (NOT DETECT) 08/06/24 11:35 Parainfluenza 1 (PCR) Not detected (NOT DETECT) 08/06/24 11:35 Parainfluenza 2 (PCR) Not detected (NOT DETECT) 08/06/24 11:35 Parainfluenza 3 (PCR) Not detected (NOT DETECT) 08/06/24 11:35 Parainfluenza 4 (PCR) Not detected (NOT DETECT) 08/06/24 11:35 RSV (PCR) Negative (Negative) 07/31/24 13:41 RSV Type A (PCR) Not detected (NOT DETECT) 08/06/24 11:35 RSV Type B (PCR) Not detected (NOT DETECT) 08/06/24 11:35 Entero/Rhino (PCR) Not detected (NOT DETECT) 08/06/24 11:35 SARS-CoV-2 (PCR) Not detected (NOT DETECT) 08/06/24 11:35 Vitals Last Vital Signs Temp 98.4 F 08/07/24 08:00 Pulse 77 08/07/24 09:45 Resp 18 08/07/24 09:45 BP 138/79 08/07/24 06:00 Pulse Ox 90 08/07/24 10:06 O2 Del Method Nasal Cannula 08/07/24 09:45 O2 Flow Rate 2 08/07/24 09:45 Discharge Plan Discharge Patient Disposition: Home Condition: Stable Prescriptions: New aspirin 81 mg Tablet,Delayed Release (Dr/Ec) 81 mg PO DAILY 30 Days Qty: 30 2RF atorvastatin 40 mg Tablet 80 mg PO BEDTIME 30 Days Qty: 30 2RF clopidogrel 75 mg Tablet 75 mg PO DAILY 30 Days Qty: 30 2RF pantoprazole 40 mg Tablet,Delayed Release (Dr/Ec) 40 mg PO DAILY 30 Days Qty: 30 0RF lisinopril 10 mg Tablet 10 mg PO DAILY 30 Days Qty: 30 0RF metoprolol succinate 25 mg tablet extended release 24 hr 12.5 mg PO DAILY Qty: 30 0RF Continued paroxetine HCl [Paxil] 10 mg tablet 10 mg PO DAILY Qty: 90 0RF amitriptyline 10 mg tablet 10 mg PO .qhs Qty: 30 0RF hydroxyzine HCl 50 mg tablet 50 mg PO BID PRN (Reason: anxiety) Qty: 20 0RF trazodone 50 mg Tablet 50 mg PO BEDTIME PRN (Reason: Sleep) One Daily Women 50 Plus 400-120 mcg-mg Tablet 1 tab PO DAILY mecobalamin (vitamin B12) [B12 Active] 1,000 mcg Tablet,Chewable 1,000 mcg PO DAILY Discontinued aspirin [[place]ryn Aspirin] 325 mg Tablet 650 mg PO BID PRN (Reason: Heart HEALTH) ibuprofen [Advil] 200 mg Tablet 600 mg PO Q6H PRN (Reason: Pain) Discharge Orders: Discharge Order (Routine); Ordered 08/07/24 Ordered By: Naheed Stinson Other Ambulatory Orders: Sleep Study/Titration (Routine) Timeframe: 2 Weeks Facility: [facility] - Location: [facility] Ordered By: Naheed Stinson Referrals: Anali Mathis FNP [Primary Care Provider] - 4-7 days (hospital discharge follow up ) Discharge Diet: Cardiac Discharge Activity: Increase activity as tolerated Patient Instructions: How to Stop Smoking (DC), Cigarette Smoking and Your Health (GEN), Opioid Safety, Pain Management Discharge Attestations Time Spent in Discharge Care*: greater than 30 min Quality Metrics Clinical Quality Measures [ Acute Myocardial Infaction { Clinical Trial Participant: No; Contraindication to aspirin: None; Aspirin prescribed; Contraindication to statin: None; Statin prescribed; Contraindication to PCI: None; PCI performed;}] Coding Level of Care Code Acute Code for g Fwd Diagnoses Moderate aortic stenosis I35.0 CAD (coronary artery disease) I25.10 CHF (congestive heart failure) I50.9 Heart failure chronicity: acute Heart failure type: unspecified Essential hypertension I10 Hypertension type: essential hypertension NSTEMI (non-ST elevated myocardial infarction) I21.4
--- NOTE | 2024-08-07 13:34 | PC.NURSE ---
All dc instructions educated to patient, pharmacy brought meds, iv dc. son updated then son called for a cab and patient informed this nurse to cancel the medicare ride.
--- NOTE | 2024-08-07 13:52 | PC.NURSE ---
Out of facility with cab
--- NOTE | 2024-08-07 14:36 | PC.SOCIAL ---
IMM Update pg 2 of IMM updated and reviewed w/ patient. Copy provided and copy dated, initialed and placed in chart.
== END 2024-08-07 14:00 | disposition home or self-care (01) | DRG 280 ==
LOC: ER 17:56 → ICU 18:30
PROVIDERS: Internal Medicine Cardiovascular Disease; Admitting Provider Internal Medicine; Emergency Provider Physician Assistant; PCP Nurse Practitioner Family; Visit Provider Student in an Organized Health Care Education/Training Program
DX: I21.4 Non-ST elevation (NSTEMI) myocardial infarction (principal); I50.23 Acute on chronic systolic (congestive) heart failure; J18.9 Pneumonia, unspecified organism; N39.0 Urinary tract infection, site not specified; I35.0 Nonrheumatic aortic (valve) stenosis; I11.0 Hypertensive heart disease with heart failure; I44.7 Left bundle-branch block, unspecified; J44.9 Chronic obstructive pulmonary disease, unspecified; G47.30 Sleep apnea, unspecified; F41.9 Anxiety disorder, unspecified; T46.5X6A Underdosing of other antihypertensive drugs, initial encounter; Z91.138 Patient's unintentional underdosing of medication regimen for other reason; F17.210 Nicotine dependence, cigarettes, uncomplicated; I25.10 Atherosclerotic heart disease of native coronary artery without angina pectoris; R01.1 Cardiac murmur, unspecified; I95.9 Hypotension, unspecified; R19.7 Diarrhea, unspecified; J34.89 Other specified disorders of nose and nasal sinuses; Z99.81 Dependence on supplemental oxygen; Z79.82 Long term (current) use of aspirin
CPT/HCPCS: 36415; 36600; 51702; 71045; 71250; 71275; 74176; 80048; 80051; 80053; 80061; 81001; 82330; 82805; 83036; 83735; 83880; 84145; 84443; 84484; 85025; 85347; 85378; 85730; 87040; 87086; 87486; 87581; 87633; 87637; 93005; 93306; 93458; 94760; 96365; 96366; 96372; 96374; 96375; 96376; 97110; 97116; 97161; 97530; 99152; 99153; 99285; C1725; C1760; C1769; C1874; C1887; C1894; C9600; C9601; J0360; J0696; J1200; J1644; J1940; J2250; J3010; J3490; J7030; J7050; Q0144; Q9967

== ENCOUNTER → 2024-08-14 12:18 | Outpatient (BNVA) | payer OTHER, MEDICAID, SELFPAY | PROVIDERS: PCP Nurse Practitioner Family; Visit Provider Nurse Practitioner Family | DX: J98.11 Atelectasis (principal) | CPT/HCPCS: 71046 ==

== ENCOUNTER → 2024-09-09 12:45 | Outpatient (BNVA) | payer OTHER, MEDICAID, SELFPAY | PROVIDERS: PCP Nurse Practitioner Family; Visit Provider Nurse Practitioner Family | DX: I25.10 Atherosclerotic heart disease of native coronary artery without angina pectoris (principal); I25.2 Old myocardial infarction; Z72.0 Tobacco use; E78.5 Hyperlipidemia, unspecified; G89.18 Other acute postprocedural pain; I10 Essential (primary) hypertension | CPT/HCPCS: 99214 ==

== ENCOUNTER 2024-11-22 09:10 | Outpatient (CLI) | payer OTHER, MEDICAID, SELFPAY ==
--- NOTE | 2024-11-22 09:15 | USCV_ITS ---
Concepcion Esquivel Age: 79 Gender: F : 1945 Exam Date: 11/22/2024 09:30 Ordering Phys: Linda Casanova Technologist: [place] [facility] [place]: ef BP: 134 / 84 HR: Rhythm: Sinus Technical Quality: MEASUREMENTS (Male / Female) Normal Values 2D ECHO LV Diastolic Diameter PLAX 4.5 cm 4.2 - 5.9 / 3.9 - 5.3 cm IVS Diastolic Thickness 1.4 cm 0.6 - 1.0 / 0.6 - 0.9 cm IVS Systolic Thickness 1.7 cm LVPW Diastolic Thickness 1.6 cm 0.6 - 1.0 / 0.6 - 0.9 cm LVPW Systolic Thickness 1.8 cm LVOT Diameter 2.0 cm LV Ejection Fraction 2D Teich 69.3 % LV Ejection Fraction MOD 4C 60.2 % LV Ejection Fraction MOD 2C 51.1 % LV Ejection Fraction 2C AL 53.0 % LA Diameter 3.0 cm RA Systolic Volume 4C AL 58.6 ml RA Systolic Volume 4C MOD 57.5 ml Aorta at Sinotubular Diameter 2.6 cm M-MODE LA Ao Ratio MM 1.1 AV Cusp Separation MM 1.8 cm FINDINGS Left Ventricle Normal left ventricular size and systolic function, EF 50-55 % (visual). Mild concentric left ventricular hypertrophy. Slightly dyskinetic basal inferior wall segment. Right Ventricle The right ventricle is normal in size and function. Right Atrium The right atrium is normal in size. Left Atrium The left atrium is normal in size. Mitral Valve Moderate mitral annular calcification. Aortic Valve Thickened aortic valve. Tricuspid Valve No gross morphologic abnormalities Pulmonic Valve No gross abnormalities noted Pericardium No pericardial effusion. Aorta Normal ascending aorta dimension. IVC Inferior vena cava not visualized. CONCLUSIONS Normal left ventricular size and systolic function, EF 50-55 % (visual). Mild concentric left ventricular hypertrophy. Slightly dyskinetic basal inferior wall segment. Moderate mitral annular calcification. Thickened aortic valve. There is no pericardial effusion. There are no intracardiac masses. Compared to the study from 07/31/2024, there is significant improvement in the LV ejection fraction from 44% to 50 - 55% Dr Yeimi Smith MD [facility] (Electronically Signed) Final Date: 24 Nov 2024 08:33 S
== END 2024-11-22 09:11 | disposition home or self-care (01) ==
LOC: RAD 09:11
PROVIDERS: PCP Nurse Practitioner Family; Visit Provider Nurse Practitioner Family
DX: I10 Essential (primary) hypertension (principal); I50.9 Heart failure, unspecified; I25.10 Atherosclerotic heart disease of native coronary artery without angina pectoris; I21.4 Non-ST elevation (NSTEMI) myocardial infarction; I51.7 Cardiomegaly; I34.81 Nonrheumatic mitral (valve) annulus calcification; I35.8 Other nonrheumatic aortic valve disorders
CPT/HCPCS: 93308

== ENCOUNTER → 2024-12-06 10:34 | Outpatient (BNVA) | payer OTHER, MEDICAID, SELFPAY | PROVIDERS: PCP Nurse Practitioner Family; Visit Provider Internal Medicine Cardiovascular Disease | DX: Z98.61 Coronary angioplasty status (principal); M19.90 Unspecified osteoarthritis, unspecified site; I10 Essential (primary) hypertension; R60.0 Localized edema; Z79.01 Long term (current) use of anticoagulants; Z79.82 Long term (current) use of aspirin; F17.210 Nicotine dependence, cigarettes, uncomplicated | CPT/HCPCS: 99214 ==

== ENCOUNTER 2025-07-14 01:23 | Inpatient (IN) | payer MEDICARE, MEDICAID, SELFPAY ==
[2025-07-14] VITALS (22 sets, daily range): BP systolic 114–162; BP diastolic 70–116; PULSE 63–97; RESP 16–32; TEMP 36.7–37.7; O2SAT 85–99; BMI 28.3; BMI 32.0
--- NOTE | 2025-07-14 01:50 | ECG_ITS ---
[facility] 2025-07-14 Pat Name: Concepcion Esquivel Department: Room: Gender: Female Visual Stylist: : 1945 Requested By: Antonia Neely Order Number: [id number] Durga MD: Obed Garcia M.D. Measurements Intervals Whitt Rate: 90 P: 32 VT: 176 QRS: 64 QRSD: 142 T: -5 QT: 381 QTc: 468 Interpretive Statements SINUS RHYTHM WITH OCCASIONAL SUPRAVENTRICULAR PREMATURE COMPLEXES POSSIBLE LEFT ATRIAL ENLARGEMENT [-0.1mV P-WAVE IN V1/V2] LEFT BUNDLE BRANCH BLOCK [120+ ms QRS DURATION, 80+ ms Q/S IN V1/V2, 85+ ms R IN I/aVL/V5/V6] Compared to ECG 08/02/2024 23:29:40 Left bundle-branch block now present Sinus bradycardia no longer present T-wave abnormality no longer present Possible ischemia no longer present Electronically Signed On 07-17-2025 16:38:30 POLISHER ALUMINUM by Obed Garcia M.D. [email or web address] [id number]
--- NOTE | 2025-07-14 02:45 | XRR_ITS ---
PROCEDURE INFORMATION: Exam: XR Chest Exam date and time: 07/14/2025 3:05 AM Age: 80 years old Clinical indication: Shortness of breath; Prior surgery; Surgery date: 6+ months; Surgery type: RT shoulder; C/O SOB. History of chf. TECHNIQUE: Imaging protocol: Radiologic exam of the chest. Views: 1 view. COMPARISON: CR XR chest 2V* [id number] 08/14/2024 12:23 PM FINDINGS: Lungs: Central pulmonary vasculatures prominent and indistinct, the vascular pedicle is prominent. There are perihilar opacities. Pleural spaces: Unremarkable. No pleural effusion. No pneumothorax. Heart/Mediastinum: The cardiac silhouette is enlarged. Bones/joints: Unremarkable. XR/XR chest 1V portable [id number] IMPRESSION: Findings most consistent with CHF.
--- NOTE | 2025-07-14 02:45 | CTR_ITS ---
PROCEDURE INFORMATION: Exam: CTA Chest With Contrast Exam date and time: 07/14/2025 3:23 AM Age: 80 years old Clinical indication: Shortness of breath; Prior surgery; Surgery date: 6+ months; Surgery type: RT shoulder; C/O SOB. History of chf. TECHNIQUE: Imaging protocol: Computed tomographic angiography of the chest with contrast. Exam focused on the arteries. 3D rendering (Not supervised by radiologist): MIP and/or 3D reconstructed images were created by the technologist. Radiation optimization: All CT scans at this facility use at least one of these dose optimization techniques: automated exposure control; mA and/or kV adjustment per patient size (includes targeted exams where dose is matched to clinical indication); or iterative reconstruction. Contrast material: OMNI 350; Contrast volume: 64 ml; Contrast route: INTRAVENOUS (IV); COMPARISON: CT angio chest PE protcl [id number] 07/31/2024 4:13 PM RADIATION DOSE METRICS: Total DLP (mGy-cm): 406.52 FINDINGS: Pulmonary arteries: Main pulmonary artery is enlarged. There are stable sized axillary lymph nodes. Aorta: Unremarkable. No aortic aneurysm. No aortic dissection. Lungs: Respiratory motion limits lung parenchymal detail. There is peribronchial thickening with peribronchial ground-glass opacities, similar to the previous CT. Pleural spaces: Unremarkable. No pneumothorax. No pleural effusion. Heart: There is cardiomegaly. Coronary arteries: The coronary arteries are markedly calcified. Lymph nodes: There is stable mediastinal lymphadenopathy. Bones/joints: Stable degenerative changes are present within the spine. Soft tissues: Unremarkable. Other findings: There are small layering effusions, which are decreased in size compared to the previous CT. CT/CT angio chest PE protcl [id number] IMPRESSION: 1. There is cardiomegaly and findings most consistent with mild vascular congestion/CHF. 2. There are trace effusions, decreased from the previous CT. 3. There is mild peribronchial thickening and ground-glass opacities, component of bronchitis can not be excluded. 4. Pulmonary artery enlargement, can be associated with primary pulmonary hypertension. 5. CAD. 6. Stable mediastinal lymphadenopathy. Likely reactive in etiology.
--- NOTE | 2025-07-14 02:46 | W.ED.GENADLT ---
HPI - General Adult General: Chief complaint: Shortness of Breath/Dyspnea Stated complaint: SOB Time Seen by Provider: 07/14/25 01:40 History of Present Illness: Patient is a 80-year-old female presenting with a chief complaint of sudden shortness of breath. Patient states she woke up tonight to use the restroom, went to the bathroom and felt extremely short of air. Patient does not normally use oxygen at home, arrived hypoxic, required nonrebreather for SpO2 above 90% on room air. Patient is alert, oriented and able to provide history. Patient states that she has not experienced chest pain but states that last time she felt like this, she had to have several cardiac stents placed. On August 05, 2024 she underwent left heart cath with placement of 3 stents for multivessel disease. Patient denies any abdominal pain, nausea, vomiting, diarrhea, urinary symptoms, lower extremity swelling. Related Data Home Medications ?Medication ?Instructions ?Recorded ?Confirmed mecobalamin (vitamin B12) 1,000 1,000 mcg PO DAILY 07/31/24 12/06/24 mcg chewable tablet (B12 Active) multivitamin with [id number]-[id number] 1 tab PO DAILY 07/31/24 12/06/24 400 mcg-120 mg tablet (One Daily Women 50 Plus) Previous Rx's ?Medication ?Instructions ?Recorded hydroxyzine HCl 50 mg tablet 50 mg PO BID PRN anxiety #20 tabs 07/31/24 aspirin 81 mg tablet,delayed 81 mg PO DAILY #90 tabs 08/13/24 release atorvastatin 40 mg tablet 80 mg (2 x 40 mg) PO BEDTIME #180 08/28/24 tabs clopidogrel 75 mg tablet 75 mg PO DAILY #90 tabs 08/28/24 lisinopril 10 mg tablet 10 mg PO DAILY #90 tabs 08/28/24 metoprolol succinate 25 mg 12.5 mg (1/2 x 25 mg) PO DAILY #45 08/28/24 tablet,extended release 24 hr tabs pantoprazole 40 mg tablet,delayed 40 mg PO DAILY #90 tabs 08/28/24 release Allergies Allergy/AdvReac Type Severity Reaction Status Date / Time No Known Allergies Allergy Verified 12/06/24 10:55 [facility] ED PFS: Medical History (Updated 07/14/25 @ 05:14 by Antonia Neely MD) Glaucoma of both eyes Hypertension Surgical History (Updated 12/08/24 @ 15:03 by Liliana Alas) Hx of carpal tunnel repair Hx of rotator cuff surgery Social History Smoking and tobacco/nicotine status: current every day tobacco/nicotine user cigarettes Packs smoked per day: 1 Years cigarettes smoked: 6 Second hand smoke exposure: No Alcohol intake: current Alcohol intake frequency: few times a week Alcohol type: wine Lives independently: Yes Household members: none Marital status: / Current occupational status: employed Current occupation: [employer] Current gender identity: Female Special karena needs: No Agree to transfusion: Yes Physical Exam Narrative: EXAM NARRATIVE: Vitals were reviewed. Patient is alert, oriented and able to provide history. She is requiring significant respiratory support, was placed on BiPAP. Patient has rhonchi diffusely in all lung nick, B-lines on ultrasound which is concerning for CHF. Normal heart sounds, no murmur. No abdominal pain on palpation of the abdomen. No lower extremity asymmetry. No significant lower extremity edema. Course Vital Signs: Vital signs: Vital Signs Temperature 98.2 F 07/14/25 02:12 Pulse Rate 94 07/14/25 04:35 Respiratory Rate 18 07/14/25 04:35 Blood Pressure 138/89 07/14/25 03:43 Pulse Oximetry 94 07/14/25 04:35 Oxygen Delivery Me thod Nasal Cannula 07/14/25 04:35 Oxygen Flow Rate 4 07/14/25 04:35 Fraction of Inspir ed Oxygen 50 07/14/25 02:33 [facility] - General Adult Medical Decision Making 80-year-old female presents with a sudden onset of shortness of breath and oxygen requirement. Differential diagnosis includes, but is not limited to, ACS, PE, pericardial effusion, pleural effusion, COVID/influenza, CHF, pneumonia, other. On exam she is hypertensive but is in acute respiratory distress. Patient was placed on BiPAP. On exam, she has diffuse rhonchi and B-lines on ultrasound which is concerning for CHF. Patient was evaluated CBC, CMP, lactic acid, COVID and flu screen, troponin, BNP, EKG, chest x-ray and CT PE. She was treated with ASA. Patient has a normal white blood cell count and a normal lactic acid and is afebrile; I feel that the cause of her symptoms is much less likely to be infectious. She does have an elevated troponin but no significant elevation in delta troponin. BNP is nearly 4000. CT scan does not show pulmonary embolus but shows cardiomegaly and vascular congestion which is consistent with CHF. Patient was weaned to 6 L of nasal cannula from BiPap and is doing much better. Given IV lasix. Admitted. Lab Data 07/14/25 02:07 07/14/25 02:07 Radiology Impressions Chest CTA 07/14/25 02:45 IMPRESSION: 1. There is cardiomegaly and findings most consistent with mild vascular congestion/CHF. 2. There are trace effusions, decreased from the previous CT. 3. There is mild peribronchial thickening and ground-glass opacities, component of bronchitis can not be excluded. 4. Pulmonary artery enlargement, can be associated with primary pulmonary hypertension. 5. CAD. 6. Stable mediastinal lymphadenopathy. Likely reactive in etiology. ADDENDUM: 07/14/25 0441 No evidence of PE. Chest X-Ray 07/14/25 02:45 IMPRESSION: Findings most consistent with CHF. Laboratory Results WBC 11.21 10^3/uL (3.29-11.43) 07/14/25 02:07 RBC 4.75 10^6/uL (3.85-5.65) 07/14/25 02:07 Hgb 13.10 g/dL (11.27-16.99) 07/14/25 02:07 Hct 42.5 % (36-47) 07/14/25 02:07 MCV 89.5 fl (85-98) 07/14/25 02:07 MCH 27.6 pg (27-33) 07/14/25 02:07 MCHC 30.8 g/dL (30-55) 07/14/25 02:07 RDW 14.7 % (12.1-15.1) 07/14/25 02:07 Plt Count 354 10^3/cmm (157-399) 07/14/25 02:07 MPV 10.7 fL (7.4-10.4) H 07/14/25 02:07 Neut % (Auto) 75.9 % 07/14/25 02:07 Lymph % (Auto) 16.5 % 07/14/25 02:07 Cross % (Auto) 5.6 % 07/14/25 02:07 Eos % (Auto) 1.3 % 07/14/25 02:07 Baso % (Auto) 0.4 % 07/14/25 02:07 Neut # (Auto) 8.50 10^3/uL (1.8-7.7) H 07/14/25 02:07 Lymph # (Auto) 1.9 10^3/uL (0.8-4.8) 07/14/25 02:07 Cross # (Auto) 0.6 10^3/uL (0.2-0.9) 07/14/25 02:07 Eos # (Auto) 0.2 10^3/uL (0.0-0.8) 07/14/25 02:07 Baso # (Auto) 0.1 10^3/uL (0.0-0.1) 07/14/25 02:07 Nucleated RBC % (auto) 0 % 07/14/25 02:07 Nucleated RBCs # 0.0 /100WBC 07/14/25 02:07 Specimen Type Arterial 07/14/25 04:00 Sample Site Brachial, left 07/14/25 04:00 ABG pH 7.39 (7.35-7.45) 07/14/25 04:00 ABG pCO2 38.7 mmHg (35-45) 07/14/25 04:00 ABG pO2 121.0 mmHg (80.0-100.0) H 07/14/25 04:00 ABG PO2/FiO2 Ratio 242 07/14/25 04:00 ABG HCO3 23.6 mmol/L (22-26) 07/14/25 04:00 ABG O2 Saturation 99.1 07/14/25 04:00 ABG Base Excess -1.1 mmol/L (-2.0-2.0) 07/14/25 04:00 Silas Test Pos 07/14/25 04:00 A-a O2 Gradient 24.4 mmHg (5-10) H 07/14/25 04:00 Hematocrit 37.4 % (37-47) 07/14/25 04:00 Hgb O2 Saturation 95.7 % (95-100) 07/14/25 04:00 Carboxyhemoglobin 3.1 %THgb (0.4-20.1) 07/14/25 04:00 Methemoglobin 0.4 % (0.4-1.5) 07/14/25 04:00 Total Hemoglobin 12.2 g/dL (12-16) 07/14/25 04:00 Sodium 140.0 mmol/L (131-143) 07/14/25 04:00 Potassium 4.2 mmol/L (3.5-5.0) 07/14/25 04:00 Glucose 104.0 mg/dL (70-115) 07/14/25 04:00 Ionized Calcium 1.4 mmol/L (1.1-1.4) 07/14/25 04:00 O2 Delivery Device Bipap 07/14/25 04:00 FiO2 50.0 % 07/14/25 04:00 Key Account Executive ID [email or web address] 07/14/25 04:00 Sodium 142 mmol/L (136-145) 07/14/25 02:07 Potassium 4.6 mmol/L (3.5-5.1) 07/14/25 02:07 Chloride 105 mmol/L (98-107) 07/14/25 02:07 Carbon Dioxide 24 mmol/L (22-29) 07/14/25 02:07 Anion Gap 17.6 (5-19) 07/14/25 02:07 BUN 17 mg/dL (8-23) 07/14/25 02:07 Creatinine 0.9 mg/dL (0.5-0.9) 07/14/25 02:07 GFR Calculation Not Reportable 07/14/25 02:07 Glucose 120 mg/dL (65-115) H 07/14/25 02:07 Calculated Osmolality 297 mOsm/kg (285-295) H 07/14/25 02:07 Lactic Acid 1.8 mmol/L (0.5-2.2) 07/14/25 02:07 Calcium 11.1 mg/dL (8.5-10.5) H 07/14/25 02:07 Total Bilirubin 0.5 mg/dL (0.15-1.2) 07/14/25 02:07 AST 35 U/L (0-32) H 07/14/25 02:07 ALT 29 U/L (0-33) 07/14/25 02:07 Alkaline Phosphatase 209 U/L (35-105) H 07/14/25 02:07 Troponin T Baseline 20 ng/L (0-10) H 07/14/25 02:07 Troponin T 60 Minute 23.30 ng/L (0-10) H 07/14/25 04:00 Delta Troponin T 3.30 ABS# (0-10) 07/14/25 04:00 NT-Pro-B Natriuret Pep 3890 pg/mL (0-450) H 07/14/25 02:07 Total Protein 7.1 g/dL (6.6-8.7) 07/14/25 02:07 Albumin 4.5 g/dL (3.5-5.2) 07/14/25 02:07 Globulin 2.6 g/dL (1.3-4.6) 07/14/25 02:07 Urine Color Yellow (Yellow) 07/14/25 02:26 Urine Appearance Clear (CLEAR) 07/14/25 02:26 Urine pH 6.5 (5-7) 07/14/25 02:26 Ur Specific [place] 1.017 (1.005-1.030) 07/14/25 02:26 Urine Protein 1+ (Negative) A 07/14/25 02:26 Urine Glucose (UA) Negative (Normal) 07/14/25 02:26 Urine Ketones Trace (Negative) 07/14/25 02:26 Urine Blood Negative (Negative) 07/14/25 02:26 Urine Nitrate Negative (Negative) 07/14/25 02:26 Urine Bilirubin Negative (Negative) 07/14/25 02:26 Urine Urobilinogen 0.2 mg/dL (Negative) 07/14/25 02:26 Ur Leukocyte Esterase Negative (Negative) 07/14/25 02:26 Urine RBC 0-2 /hpf (0-2) 07/14/25 02:26 Urine WBC 0-5 /hpf (0-5) 07/14/25 02:26 Ur Squamous Epith Cells 0-5 /hpf (0-5) 07/14/25 02:26 Amorphous Sediment Not Reportable 07/14/25 02:26 Urine Bacteria None seen /hpf (NONE) 07/14/25 02:26 Hyaline Casts 0-4 /lpf H 07/14/25 02:26 Influenza A (PCR) Negative (Negative) 07/14/25 04:16 Influenza Type B (PCR) Negative (Negative) 07/14/25 04:16 RSV (PCR) Negative (Negative) 07/14/25 04:16 SARS-CoV-2 (PCR) Negative (Negative) 07/14/25 04:16 All radiology interpretation(s) finalized by discharge EKG Data EKG 1: Interpretation: Normal sinus rhythm with a heart rate of 90, normal axis, left bundle branch block, no STEMI per Sgarbossa criteria. LBBB present on previous EKG. Computer generated interpretation: Chest CTA 07/14/25 02:45 IMPRESSION: 1. There is cardiomegaly and findings most consistent with mild vascular congestion/CHF. 2. There are trace effusions, decreased from the previous CT. 3. There is mild peribronchial thickening and ground-glass opacities, component of bronchitis can not be excluded. 4. Pulmonary artery enlargement, can be associated with primary pulmonary hypertension. 5. CAD. 6. Stable mediastinal lymphadenopathy. Likely reactive in etiology. ADDENDUM: 07/14/25 0441 No evidence of PE. Chest X-Ray 07/14/25 02:45 IMPRESSION: Findings most consistent with CHF. Discharge Plan Discharge Patient Disposition: Admitted As Inpatient Clinical Impression: CHF (congestive heart failure), Acute hypoxemic respiratory failure Condition: Stable Coding Level of Care Code ED Mrb Engineer for Enzo Lord
[2025-07-14 02:51] LABS: Hematocrit 42.5 % (36-47); Hemoglobin 13.10 g/dL (11.27-16.99); Mean Corpuscular HGB Conc 30.8 g/dL (30-55); Mean Corpuscular Hemoglobin 27.6 pg (27-33); Mean Corpuscular Volume 89.5 fl (85-98); Nucleated Red Blood Cells % 0 %; Platelet Count 354 10^3/cmm (157-399); Red Blood Count 4.75 10^6/uL (3.85-5.65); White Blood Count 11.21 10^3/uL (3.29-11.43)
[2025-07-14 03:00] LABS: Lactic Sepsis W/Reflex 1.8 mmol/L (0.5-2.2)
[2025-07-14 03:04] LABS: Troponin(5th) Baseline 20 ng/L (0-10)
[2025-07-14 03:10] LABS: Glucose Urine UA Negative (Normal); Nitrate Urine Negative (Negative); Specific Gravity, Urine 1.017 (1.005-1.030)
[2025-07-14 03:11] LABS: Alanine Aminotransferase 29 U/L (0-33); Albumin Level 4.5 g/dL (3.5-5.2); Alkaline Phosphatase 209 U/L (35-105); Anion Gap 17.6 (5-19); Aspartate Amino Transferase 35 U/L (0-32); Blood Urea Nitrogen 17 mg/dL (8-23); Calcium 11.1 mg/dL (8.5-10.5); Carbon Dioxide 24 mmol/L (22-29); Chloride 105 mmol/L (98-107); Globulin 2.6 g/dL (1.3-4.6); Glucose 120 mg/dL (65-115); NT Pro B Type Natriuretic Pept 3890 pg/mL (0-450); Osmolality Calculated 297 mOsm/kg (285-295); Potassium 4.6 mmol/L (3.5-5.1); Sodium 142 mmol/L (136-145); Total Protein 7.1 g/dL (6.6-8.7)
[2025-07-14 03:15] LABS: Add Urine Microscopic? YES
[2025-07-14] MEDS: iohexol 350 mg/mL 500 mL Btl (per mL) IV (03:35)
--- NOTE | 2025-07-14 03:46 | ECG_ITS ---
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
[2025-07-14 04:09] LABS: ABG PCO2 38.7 mmHg (35-45); ABG PH Result 7.39 (7.35-7.45); Alveolar-Arterial Oxygen Gradi 24.4 mmHg (5-10); Arterial Blood Gas Hematocrit 37.4 % (37-47); Blood Gas Allen Test Pos; Blood Gas Operator Identificat gerca; Blood Gas Sample Site Brachial, left; Blood Gas Sample Type Arterial; Carboxyhemoglobin 3.1 %THgb (0.4-20.1); Glucose Level-ABG 104.0 mg/dL (70-115); HCO3 ABG 23.6 mmol/L (22-26); Ionized Calcium Level - ABG 1.4 mmol/L (1.1-1.4); Methemoglobin 0.4 % (0.4-1.5); Oxygen Saturation ABG 99.1; PO2 ABG 121.0 mmHg (80.0-100.0); PO2 FiO2 Ratio Arterial Blood 242; Potassium Level - ABG 4.2 mmol/L (3.5-5.0); Sodium Level - ABG 140.0 mmol/L (131-143)
[2025-07-14 05:03] LABS: Respiratory Syncytial Virus Ce NEGATIVE (Negative); SARS-CoV-2 PCR NEGATIVE (Negative)
[2025-07-14] MEDS: FUROsemide 10 mg/mL SDV 4mL 40 MG IVP ×2 (05:22→13:50)
--- NOTE | 2025-07-14 06:39 | PM.HP ---
Providers/Chief Complaint Admitting Physician: Vinay Bey MD Primary Care Provider: KATEY Bravo Chief Complaint: SOB History of Present Illness Concepcion Esquivel is a 80 year old female with history significant for HFpEF, EF 45%, and CAD, who presents with complaints of shortness of breath. She states that her shortness of breath began at 1130 the night prior to presentation while she was getting up to go to the bathroom. It was sudden onset and she was in her usual state of health before this. With her complaints, she called her daughter who called EMS who delivered her to our facility for further evaluation and management. Her complaint concerns are because his urine has been of since and she had that led to stenting. She denies any lower extremity swelling or being prescribed any diuretics. She denies any chest pain, palpitations, nausea, vomiting, diarrhea, or abdominal pain. Medications/Allergies Home Medications ?Medication ?Instructions ?Recorded ?Confirmed ?Last Taken ?Type hydroxyzine HCl 50 mg tablet 50 mg PO BID PRN anxiety #20 tabs 07/31/24 12/06/24 Unknown Rx mecobalamin (vitamin B12) 1,000 1,000 mcg PO DAILY 07/31/24 12/06/24 07/29/24 History mcg chewable tablet (B12 Active) multivitamin with ufa-QA-lneskm 1 tab PO DAILY 07/31/24 12/06/24 07/29/24 History 400 mcg-120 mg tablet (One Daily Women 50 Plus) aspirin 81 mg tablet,delayed 81 mg PO DAILY #90 tabs 08/13/24 12/06/24 Unknown Rx release atorvastatin 40 mg tablet 80 mg (2 x 40 mg) PO BEDTIME #180 08/28/24 12/06/24 Unknown Rx tabs clopidogrel 75 mg tablet 75 mg PO DAILY #90 tabs 08/28/24 12/06/24 Unknown Rx lisinopril 10 mg tablet 10 mg PO DAILY #90 tabs 08/28/24 12/06/24 Unknown Rx metoprolol succinate 25 mg 12.5 mg (1/2 x 25 mg) PO DAILY #45 08/28/24 12/06/24 Unknown Rx tablet,extended release 24 hr tabs pantoprazole 40 mg tablet,delayed 40 mg PO DAILY #90 tabs 08/28/24 12/06/24 Unknown Rx release Allergies Allergy/AdvReac Type Severity Reaction Status Date / Time No Known Allergies Allergy Verified 12/06/24 10:55 PFSH Acute PFSH: Medical History (Updated 07/14/25 @ 05:14 by Antonia Neely MD) Glaucoma of both eyes Hypertension Surgical History (Updated 12/08/24 @ 15:03 by Liliana Alas) Hx of carpal tunnel repair Hx of rotator cuff surgery Social History Smoking and tobacco/nicotine status: current every day tobacco/nicotine user cigarettes Packs smoked per day: 1 Years cigarettes smoked: 6 Second hand smoke exposure: No Alcohol intake: current Alcohol intake frequency: few times a week Alcohol type: wine Lives independently: Yes Household members: none Marital status: / Current occupational status: employed Current occupation: [employer] Current gender identity: Female Special karena needs: No Agree to transfusion: Yes Vitals/I&O/Wt Last Vital Signs Temp 98.2 F 07/14/25 02:12 Pulse 79 07/14/25 06:37 Resp 18 07/14/25 04:35 BP 146/107 07/14/25 06:37 Pulse Ox 94 07/14/25 06:37 O2 Del Method Nasal Cannula 07/14/25 06:37 O2 Flow Rate 4 07/14/25 06:37 FiO2 50 07/14/25 02:33 Weight last 48 hrs Weight 70.307 kg Physical Exam Narrative: General: No acute distress, AO x3 HEENT: PERRLA, pupils bilaterally equal and reactive, pallors not present Chest: Normal vesicular breath sounds, no added sounds, equal good air entry bilaterally CVS: S1-S2 regular, no murmurs, no tachycardia, no gallops, no rubs Abdomen: Soft, nontender, no organomegaly, bowel sounds present Neuro: No focal deficits Data 07/14/25 02:07 07/14/25 02:07 A&P Assessment and plan 1. Acute hypoxemic respiratory failure: - Was on BiPAP initially but now weaned to nasal cannula. Continue to wean 2. CHF (congestive heart failure): - With noted elevation in BNP - ED has provided diuretics. Will continue this in the form of Lasix 40 mg twice daily IV - Continue her lisinopril and metoprolol 3. CAD (coronary artery disease): - Continue ASA, Plavix, Lipitor, and metoprolol Plan: - She otherwise requesting nicotine patch which I have ordered. She says she smokes 6 cigarettes a day PDMP PDMP Reviewed: Not Reviewed Attestations Medical Necessity Statement*: Patient is believed to require greater than 2 midnights in the hospital for further management of CHF exacerbation Coding Level of Care Code Acute Code for [facility] Diagnoses Acute hypoxemic respiratory failure J96.01 CHF (congestive heart failure) I50.9 CAD (coronary artery disease) I25.10
--- NOTE | 2025-07-14 07:57 | USCV_ITS ---
Concepcion Esquivel Age: 80 Gender: F : 1945 Exam Date: 07/14/2025 09:03 Ordering Phys: Danielle Moore NP Technologist: [place] [facility] [place] cp sob BP: 132 / 91 HR: Rhythm: Sinus Technical Quality: Adequate MEASUREMENTS (Male / Female) Normal Values 2D ECHO LV Diastolic Diameter PLAX 5.1 cm 4.2 - 5.9 / 3.9 - 5.3 cm IVS Diastolic Thickness 1.7 cm 0.6 - 1.0 / 0.6 - 0.9 cm IVS Systolic Thickness 2.1 cm LVPW Diastolic Thickness 1.6 cm 0.6 - 1.0 / 0.6 - 0.9 cm LVPW Systolic Thickness 1.9 cm LVOT Diameter 2.0 cm LV Ejection Fraction 2D Teich 54.8 % LV Ejection Fraction MOD 4C 45.6 % LV Ejection Fraction MOD 2C 56.1 % LV Ejection Fraction 2C AL 57.1 % LA Diameter 3.9 cm Aorta at Sinotubular Diameter 2.9 cm M-MODE LA Ao Ratio MM 1.5 AV Cusp Separation MM 1.9 cm FINDINGS Left Ventricle Moderately increased left ventricular cavity size. Moderately decreased left ventricular systolic function. Left ventricular ejection fraction is estimated at 45 %. Global left ventricular hypokinesis. Right Ventricle Right Atrium Left Atrium IA Septum Mitral Valve Aortic Valve Tricuspid Valve Pulmonic Valve Pericardium Aorta IVC CONCLUSIONS Limited echocardiogram Moderately increased left ventricular cavity size. Moderately decreased left ventricular systolic function. Left ventricular ejection fraction is estimated at 45 %. Global left ventricular hypokinesis. There is no pericardial effusion. Jelani Reddy MD (Electronically Signed) Final Date: 14 July 2025 16:02 S
--- NOTE | 2025-07-14 08:46 | ECG_ITS ---
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1945 Requested By: Antonia Neely Order Number: [id number] Reading MD: SHIRA KATHLEEN Measurements Intervals [place] Rate: 79 P: -12 [place]: 137 QRS: 6 QRSD: 147 T: 85 QT: 431 QTc: 496 Interpretive Statements SINUS RHYTHM WITH FREQUENT SUPRAVENTRICULAR PREMATURE COMPLEXES LEFT ATRIAL ENLARGEMENT [-0.15mV P-WAVE IN V1/V2] LEFT BUNDLE BRANCH BLOCK [120+ ms QRS DURATION, 80+ ms Q/S IN V1/V2, 85+ ms R IN I/aVL/V5/V6] Compared to ECG 07/14/2025 04:12:02 Atrial abnormality now present Sinus arrhythmia no longer present Electronically Signed On 07-17-2025 18:53:16 CERTIFIED SOLID WASTE FACILITY OPERATOR by SHIRA KATHLEEN [email or web address] [id number]
--- NOTE | 2025-07-14 09:50 | PC.NURSE ---
THIS NURSE CALLED PHARMACY REGARDING ANOTHER ORDER FOR 40MG OF LASIX. PT HAD RECIEVED A DOSE AT 0530 THIS MORNING AND THIS NURSE WAS QUESTIONING ORDER. PHARMACY INFORMED THIS NURSE THAT THE PROVIDER WANTED ANOTHER DOSE OF 40MG OF LASIX TO START THE SCHEDULED ORDER.
[2025-07-14 09:51] LABS: Troponin 5 6HR 27.46 ng/L (0-10); Troponin 5 6HR Delta 7.46 ng/L (0-12)
[2025-07-14] MEDS: metoprolol succinate ER (24 HR) 25 mg Tablet 12.5 MG PO (10:02)
--- NOTE | 2025-07-14 10:07 | PC.NURSE ---
WARDROBE STYLIST AT BEDSIDE. THIS NURSE ASKED PROVIDER ABOUT DUPLICATE ORDER FOR LASIX. VERBAL ORDERS TO CHANGE THE ORDERED DOSE TO BE GIVEN AT 1300 AND THE NEXT ONE TO BE AT 0500 THE NEXT MORNING.
--- NOTE | 2025-07-14 13:57 | PC.NURSE ---
Assumed Pt. care at 1315 pt. reports increased SOB and chest pain. pt. denies pain at this time.
[2025-07-15] VITALS: BP 106/56; PULSE 72; RESP 16; TEMP 36.8; O2SAT 92
[2025-07-15 04:00] VITALS: BP 124/54; PULSE 70; RESP 16; TEMP 37.1; O2SAT 90
[2025-07-15] MEDS: metoprolol succinate ER (24 HR) 25 mg Tablet 12.5 MG PO (04:34)
[2025-07-15] MEDS: FUROsemide 10 mg/mL SDV 4mL 40 MG IVP (04:35)
[2025-07-15 06:58] LABS: Hematocrit 44.1 % (36-47); Hemoglobin 14.10 g/dL (11.27-16.99); Mean Corpuscular HGB Conc 32.0 g/dL (30-55); Mean Corpuscular Hemoglobin 28.1 pg (27-33); Mean Corpuscular Volume 88.0 fl (85-98); Nucleated Red Blood Cells % 0 %; Platelet Count 303 10^3/cmm (157-399); Red Blood Count 5.01 10^6/uL (3.85-5.65); White Blood Count 7.26 10^3/uL (3.29-11.43)
[2025-07-15 07:20] LABS: Anion Gap 16.8 (5-19); Blood Urea Nitrogen 18 mg/dL (8-23); Calcium 11.0 mg/dL (8.5-10.5); Carbon Dioxide 27 mmol/L (22-29); Chloride 100 mmol/L (98-107); Glucose 104 mg/dL (65-115); Osmolality Calculated 292 mOsm/kg (285-295); Potassium 3.8 mmol/L (3.5-5.1); Sodium 140 mmol/L (136-145)
[2025-07-15 07:48] VITALS: BP 113/67; PULSE 64; RESP 16; TEMP 36.8; O2SAT 96
[2025-07-15 07:52] VITALS: PULSE 63; O2SAT 95
--- NOTE | 2025-07-15 09:50 | PC.CHAP ---
Pastoral Care Encounter/Spiritual Assessment Type of Contact [] Declined executive assistant to general counsel visit [] Patient/Family/Request visit [] Outpatient visit [] Follow-up visit [] Physician referral [] Code/Alert [x Routine visit [] Staff referral [] Actively dying [] Patient sleeping [] Family support [] [] Out of room [] Palliative care [] [] Receiving care in room [] Pre-surgical visit [] Trauma [] Long length of stay [] ICU visit [] Other: Relational/Emotional Strength [x] Patient feels connected with others/family/visitors/staff [] Distress [] Loneliness/isolation [] Abandonment Spirituality of Patient [x] Person of Beatris [x] Attends Sabianism of their Beatris [x] Believes in Prayer [x] Reads Bible or Uatsdin materials [] There are Spiritual issues to be addressed Personal Lines Appraiser Interventions [x] Prayer [x] Active listening [] Non-anxious presence [x] Spiritual/emotional support [] Crisis/trauma care [] Spiritual counseling [] Bereavement support [] Provided bereavement packet [] Provided Bible/devotional materials [] Provided toy/stuffed animal, coloring book to patient or family member [] Provided Communion [] Anointing/[place] [] Salvation [x] Completed spiritual assessment [] Other: Impact on Illness or Injury [] Angry [] Fearful [] Anxious [] Often cries [] Exhaustion [] Unable to work [] Unable to attend moravian [] Unable to walk/stand [] Unable to read [] Unable to drive [] Unable to eat/drink [] Unable to sleep [] Unable to be with family [] Patient intubated [] Other: Summary Time spent with patient 10 min
[2025-07-15 11:40] VITALS: BP 101/59; PULSE 71; RESP 16; TEMP 36.7; O2SAT 95
--- NOTE | 2025-07-15 12:27 | PM.DCS ---
Discharge Providers Date of Admission: 07/14/25 05:14 Date of Discharge: July 15, 2025 Attending Provider at Admission: Vinay Bey MD Attending Provider at Discharge: Danielle Moore NP Primary Care Provider: KATEY Bravo Diagnoses at Discharge Discharge Diagnosis 1. Acute hypoxemic respiratory failure: 2. CHF (congestive heart failure): 3. CAD (coronary artery disease): Reason for Visit Reason for Visit: SOB Brief History: Admission: Conecpcion Esquivel is a 80 year old female with history significant for HFpEF, EF 45%, and CAD, who presents with complaints of shortness of breath. She states that her shortness of breath began at 1130 the night prior to presentation while she was getting up to go to the bathroom. It was sudden onset and she was in her usual state of health before this. With her complaints, she called her daughter who called EMS who delivered her to our facility for further evaluation and management. Her complaint concerns are because his urine has been of since and she had that led to stenting. She denies any lower extremity swelling or being prescribed any diuretics. She denies any chest pain, palpitations, nausea, vomiting, diarrhea, or abdominal pain. Hospital Course Hospital Course 1. Acute hypoxemic respiratory failure: - Was on BiPAP initially but now weaned to nasal cannula. Continue to wean 2. CHF (congestive heart failure): - With noted elevation in BNP - ED has provided diuretics. Will continue this in the form of Lasix 40 mg twice daily IV - Continue her lisinopril and metoprolol 3. CAD (coronary artery disease): - Continue ASA, Plavix, Lipitor, and metoprolol Discharge: Patient diuresed well was able to completely wean off of oxygen. Echo with EF 45%, no pericardial effusion noted. Patient denied chest pain or shortness of breath at time of discharge, request discharge home. Patient advised to continue Lasix and potassium supplementation, follow-up outpatient with cardiology within the next week and primary care provider within 1 to 2 days of discharge. Patient continues cardioprotective medications as previously prescribed. All questions and concerns addressed with patient prior to discharge. Physical Exam Narrative: General: No acute distress, AO x3 HEENT: PERRLA, pupils bilaterally equal and reactive, pallors not present Chest: Normal vesicular breath sounds, no added sounds, equal good air entry bilaterally CVS: S1-S2 regular, no murmurs, no tachycardia, no gallops, no rubs, no peripheral edema Abdomen: Soft, nontender, no organomegaly, bowel sounds present Neuro: No focal deficits Discharge Data Studies Completed and Pending Completed Studies During Hospitalization Category Date Time Status CT PE [CT angio chest PE protcl [id number]] Stat Cat Scan 07/14/25 02:45 Completed XR chest 1V portable [id number] Stat Exams 07/14/25 02:45 Completed CV. echo limited [id number] Routine Ultrasound 07/14/25 07:57 Completed Radiology Impressions Chest CTA 07/14/25 02:45 IMPRESSION: 1. There is cardiomegaly and findings most consistent with mild vascular congestion/CHF. 2. There are trace effusions, decreased from the previous CT. 3. There is mild peribronchial thickening and ground-glass opacities, component of bronchitis can not be excluded. 4. Pulmonary artery enlargement, can be associated with primary pulmonary hypertension. 5. CAD. 6. Stable mediastinal lymphadenopathy. Likely reactive in etiology. ADDENDUM: 07/14/25 0441 No evidence of PE. Chest X-Ray 07/14/25 02:45 IMPRESSION: Findings most consistent with CHF. Laboratory Results WBC 7.26 10^3/uL (3.29-11.43) 07/15/25 06:10 RBC 5.01 10^6/uL (3.85-5.65) 07/15/25 06:10 Hgb 14.10 g/dL (11.27-16.99) 07/15/25 06:10 Hct 44.1 % (36-47) 07/15/25 06:10 MCV 88.0 fl (85-98) 07/15/25 06:10 MCH 28.1 pg (27-33) 07/15/25 06:10 MCHC 32.0 g/dL (30-55) 07/15/25 06:10 RDW 14.7 % (12.1-15.1) 07/15/25 06:10 Plt Count 303 10^3/cmm (157-399) 07/15/25 06:10 MPV 10.7 fL (7.4-10.4) H 07/15/25 06:10 Neut % (Auto) 67.2 % 07/15/25 06:10 Lymph % (Auto) 21.5 % 07/15/25 06:10 [place] % (Auto) 7.0 % 07/15/25 06:10 Eos % (Auto) 3.4 % 07/15/25 06:10 Baso % (Auto) 0.6 % 07/15/25 06:10 Neut # (Auto) 4.88 10^3/uL (1.8-7.7) 07/15/25 06:10 Lymph # (Auto) 1.6 10^3/uL (0.8-4.8) 07/15/25 06:10 [place] # (Auto) 0.5 10^3/uL (0.2-0.9) 07/15/25 06:10 Eos # (Auto) 0.3 10^3/uL (0.0-0.8) 07/15/25 06:10 Baso # (Auto) 0.0 10^3/uL (0.0-0.1) 07/15/25 06:10 Nucleated RBC % (auto) 0 % 07/15/25 06:10 Nucleated RBCs # 0.0 /100WBC 07/15/25 06:10 Specimen Type Arterial 07/14/25 04:00 Sample Site Brachial, left 07/14/25 04:00 ABG pH 7.39 (7.35-7.45) 07/14/25 04:00 ABG pCO2 38.7 mmHg (35-45) 07/14/25 04:00 ABG pO2 121.0 mmHg (80.0-100.0) H 07/14/25 04:00 ABG PO2/FiO2 Ratio 242 07/14/25 04:00 ABG HCO3 23.6 mmol/L (22-26) 07/14/25 04:00 ABG O2 Saturation 99.1 07/14/25 04:00 ABG Base Excess -1.1 mmol/L (-2.0-2.0) 07/14/25 04:00 [place]as Test Pos 07/14/25 04:00 A-a O2 Gradient 24.4 mmHg (5-10) H 07/14/25 04:00 Hematocrit 37.4 % (37-47) 07/14/25 04:00 Hgb O2 Saturation 95.7 % (95-100) 07/14/25 04:00 Carboxyhemoglobin 3.1 %THgb (0.4-20.1) 07/14/25 04:00 Methemoglobin 0.4 % (0.4-1.5) 07/14/25 04:00 Total Hemoglobin 12.2 g/dL (12-16) 07/14/25 04:00 Sodium 140.0 mmol/L (131-143) 07/14/25 04:00 Potassium 4.2 mmol/L (3.5-5.0) 07/14/25 04:00 Glucose 104.0 mg/dL (70-115) 07/14/25 04:00 Ionized Calcium 1.4 mmol/L (1.1-1.4) 07/14/25 04:00 O2 Delivery Device Bipap 07/14/25 04:00 FiO2 50.0 % 07/14/25 04:00 Super[employer] ID [email or web address] 07/14/25 04:00 Sodium 140 mmol/L (136-145) 07/15/25 06:10 Potassium 3.8 mmol/L (3.5-5.1) 07/15/25 06:10 Chloride 100 mmol/L (98-107) 07/15/25 06:10 Carbon Dioxide 27 mmol/L (22-29) 07/15/25 06:10 Anion Gap 16.8 (5-19) 07/15/25 06:10 BUN 18 mg/dL (8-23) 07/15/25 06:10 Creatinine 0.7 mg/dL (0.5-0.9) 07/15/25 06:10 GFR Calculation Not Reportable 07/15/25 06:10 Glucose 104 mg/dL (65-115) 07/15/25 06:10 Calculated Osmolality 292 mOsm/kg (285-295) 07/15/25 06:10 Lactic Acid 1.8 mmol/L (0.5-2.2) 07/14/25 02:07 Calcium 11.0 mg/dL (8.5-10.5) H 07/15/25 06:10 Total Bilirubin 0.5 mg/dL (0.15-1.2) 07/14/25 02:07 AST 35 U/L (0-32) H 07/14/25 02:07 ALT 29 U/L (0-33) 07/14/25 02:07 Alkaline Phosphatase 209 U/L (35-105) H 07/14/25 02:07 Troponin T Baseline 20 ng/L (0-10) H 07/14/25 02:07 Troponin T 60 Minute 23.30 ng/L (0-10) H 07/14/25 04:00 Delta Troponin T 3.30 ABS# (0-10) 07/14/25 04:00 Troponin T Hi Sens 6Hr 27.46 ng/L (0-10) H 07/14/25 09:18 Troponin T Hi Sens 6Hr Delta 7.46 ng/L (0-12) 07/14/25 09:18 NT-Pro-B Natriuret Pep 3890 pg/mL (0-450) H 07/14/25 02:07 Total Protein 7.1 g/dL (6.6-8.7) 07/14/25 02:07 Albumin 4.5 g/dL (3.5-5.2) 07/14/25 02:07 Globulin 2.6 g/dL (1.3-4.6) 07/14/25 02:07 Urine Color Yellow (Yellow) 07/14/25 02:26 Urine Appearance Clear (CLEAR) 07/14/25 02:26 Urine pH 6.5 (5-7) 07/14/25 02:[address] [place] 1.017 (1.005-1.030) 07/14/25 02:26 Urine Protein 1+ (Negative) A 07/14/25 02:26 Urine Glucose (UA) Negative (Normal) 07/14/25 02:26 Urine Ketones Trace (Negative) 07/14/25 02:26 Urine Blood Negative (Negative) 07/14/25 02:26 Urine Nitrate Negative (Negative) 07/14/25 02:26 Urine Bilirubin Negative (Negative) 07/14/25 02:26 Urine Urobilinogen 0.2 mg/dL (Negative) 07/14/25 02:26 Ur Leukocyte Esterase Negative (Negative) 07/14/25 02:26 Urine RBC 0-2 /hpf (0-2) 07/14/25 02:26 Urine WBC 0-5 /hpf (0-5) 07/14/25 02:26 Ur Squamous Epith Cells 0-5 /hpf (0-5) 07/14/25 02:26 Amorphous Sediment Not Reportable 07/14/25 02:26 Urine Bacteria None seen /hpf (NONE) 07/14/25 02:26 Hyaline Casts 0-4 /lpf H 07/14/25 02:26 Influenza A (PCR) Negative (Negative) 07/14/25 04:16 Influenza Type B (PCR) Negative (Negative) 07/14/25 04:16 RSV (PCR) Negative (Negative) 07/14/25 04:16 SARS-CoV-2 (PCR) Negative (Negative) 07/14/25 04:16 Vitals Last Vital Signs Temp 98.1 F 07/15/25 11:40 Pulse 71 07/15/25 11:40 Resp 16 07/15/25 11:40 BP 101/59 07/15/25 11:40 Pulse Ox 95 07/15/25 11:40 O2 Del Method Room Air 07/15/25 11:40 O2 Flow Rate 2 07/14/25 15:23 FiO2 50 07/14/25 02:33 Discharge Plan Discharge Patient Disposition: Home Condition: Stable Prescriptions: New furosemide [Lasix] 20 mg tablet 20 mg PO DAILY Qty: 30 0RF potassium chloride 10 mEq capsule, extended release 10 meq PO DAILY Qty: 30 0RF Continued clopidogrel 75 mg tablet 75 mg PO DAILY Qty: 90 4RF lisinopril 10 mg tablet 10 mg PO DAILY Qty: 90 4RF metoprolol succinate 25 mg tablet extended release 24 hr 12.5 mg PO DAILY Qty: 45 4RF pantoprazole 40 mg tablet,delayed release (DR/EC) 40 mg PO DAILY Qty: 90 4RF atorvastatin 40 mg tablet 80 mg PO BEDTIME Qty: 180 4RF One Daily Women 50 Plus 400-120 mcg-mg Tablet 1 tab PO DAILY Discharge Order = DC NOW: Discharge Order (Routine); Ordered 07/15/25 Ordered By: Danielle Moore Referrals: Jelani Reddy MD [Physician, Cardiology] - 07/29/25 11:15 am Referral Note: Anali Mathis FNP [Primary Care Provider, Family Practice] - 07/30/25 10:20 am Referral Note: Discharge Diet: Cardiac and Low Salt Discharge Activity: Resume usual activity Patient Instructions: Furosemide (By mouth), Potassium Chloride (By mouth), CHF Stoplight, Opioid Safety, Patient Portal & Josh Instructions Discharge Attestations Time Spent in Discharge Care*: greater than 30 min Quality Metrics Clinical Quality Measures [ No reported AMI, CVA or VTE this stay] Coding Level of Care Code 24773 Diagnoses Acute hypoxemic respiratory failure J96.01 CHF (congestive heart failure) I50.9 CAD (coronary artery disease) I25.10
[2025-07-15 15:40] VITALS: BP 101/59; PULSE 71; RESP 16; TEMP 36.7; O2SAT 95
== END 2025-07-15 15:30 | disposition home or self-care (01) | DRG 291 ==
LOC: ER 05:25 → ER IP 05:34 → MEDSURG 15:24
PROVIDERS: Admitting Provider Family Medicine; Emergency Provider Emergency Medicine; PCP Nurse Practitioner Family; Visit Provider Registered Nurse
DX: I11.0 Hypertensive heart disease with heart failure (principal); I50.23 Acute on chronic systolic (congestive) heart failure; J96.01 Acute respiratory failure with hypoxia; I25.10 Atherosclerotic heart disease of native coronary artery without angina pectoris; H40.9 Unspecified glaucoma; F17.210 Nicotine dependence, cigarettes, uncomplicated; Z79.82 Long term (current) use of aspirin; Z79.02 Long term (current) use of antithrombotics/antiplatelets; Z95.5 Presence of coronary angioplasty implant and graft
CPT/HCPCS: 36415; 36600; 71045; 71275; 80048; 80051; 80053; 81001; 82330; 82805; 83605; 83880; 84484; 85025; 87637; 93005; 93308; 94660; 96372; 96374; 96376; 99291; J1650; J1938; J9999